=== PATIENT | female | born 1955 | race Caucasian/White ===

== ENCOUNTER → 2020-08-16 13:50 | Outpatient (BNVA) | payer OTHER, SELFPAY | PROVIDERS: PCP Nurse Practitioner Family; Visit Provider Internal Medicine | DX: Z76.89 Persons encountering health services in other specified circumstances (principal) ==

== ENCOUNTER 2020-09-29 10:23 | Outpatient (REF) | payer OTHER, SELFPAY ==
--- NOTE | 2020-09-29 10:35 | XR_ITS ---
EXAMINATION: RIGHT KNEE AND AP BILATERAL KNEES STANDING. CLINICAL INFORMATION: Pain right knee. COMPARISON: None TECHNIQUE: AP bilateral knees standing and right knee 2 views. FINDINGS: AP bilateral knee: There is mild reduction in medial and lateral compartment joint space both knees with no bony erosive changes. No loose body seen. Moderate varicose veins are seen along the medial calf right leg. Right knee: There is loss of tricompartment joint space. No abnormal joint effusion seen. There are no loose bodies. There is anterior superior small patellar enthesophyte. The soft tissues are normal.. XR/XR knee standing BI IMPRESSION: Degenerative arthritic changes right knee without loose bodies or bony erosive changes.
--- NOTE | 2020-09-29 10:35 | XR_ITS ---
EXAMINATION: RIGHT KNEE AND AP BILATERAL KNEES STANDING. CLINICAL INFORMATION: Pain right knee. COMPARISON: None TECHNIQUE: AP bilateral knees standing and right knee 2 views. FINDINGS: AP bilateral knee: There is mild reduction in medial and lateral compartment joint space both knees with no bony erosive changes. No loose body seen. Moderate varicose veins are seen along the medial calf right leg. Right knee: There is loss of tricompartment joint space. No abnormal joint effusion seen. There are no loose bodies. There is anterior superior small patellar enthesophyte. The soft tissues are normal.. XR/XR knee RT 2V IMPRESSION: Degenerative arthritic changes right knee without loose bodies or bony erosive changes.
== END 2020-09-29 10:24 | disposition home or self-care (01) ==
LOC: HO.HOSX 10:23
PROVIDERS: Visit Provider Orthopaedic Surgery
DX: M25.561 Pain in right knee (principal); M25.562 Pain in left knee; M71.21 Synovial cyst of popliteal space [Baker], right knee
CPT/HCPCS: 73560; 73565

== ENCOUNTER → 2020-12-25 13:09 | Outpatient (BNVA) | payer OTHER, SELFPAY | PROVIDERS: Visit Provider Nurse Practitioner Family | DX: I47.1 Supraventricular tachycardia (principal); R00.2 Palpitations; I10 Essential (primary) hypertension; Z79.899 Other long term (current) drug therapy | CPT/HCPCS: 93005 ==

== ENCOUNTER → 2021-07-23 11:03 | Outpatient (REF) | payer OTHER, SELFPAY ==
--- NOTE | 2021-07-23 11:07 | HM_ITS ---
Conclusion: 1. Patient was monitored for 4 days and 2 hours 2. Baseline rhythm is normal sinus rhythm with average heart of 74 beats per minute 3. No significant pauses or bradycardia noted 4. Frequent short burst of supraventricular ectopics consistent with SVT, longest of 9 beats 5. Total of 13,478 PACs accounting for 4.19% of total beats, frequent PACs 6. No patient reported symptoms MTDD
== END ==
LOC: HO.CARD 11:03
PROVIDERS: PCP Nurse Practitioner Family; Visit Provider Internal Medicine
DX: R00.2 Palpitations (principal)
CPT/HCPCS: 93242

== ENCOUNTER → 2021-08-04 08:27 | Outpatient (REF) | payer OTHER, SELFPAY ==
--- NOTE | 2021-08-04 08:37 | CA_ITS ---
Transthoracic Echocardiogram Patient (Last, First, Middle): Lilli Philip Z Gender: Female Date of : 1955 Age: 65 Procedure Date: 08/04/2021 Procedure Type: Transthoracic Echocardiogram Location: OP Height: 152.4 cm Weight: 84.37 kg BSA: 1.81 m2 Heart Rate: bpm BP: 128 / 68 mmHg Enrollment Management Director: Referring MD: Calvin Cason MD Gang Investigator: Maxi Lee MD Symptoms: I47.1 - Supraventricular tachycardia Study Quality: Good ECG Rhythm: Sinus Conclusions: - 1. Normal LV systolic function with grade 1 diastolic dysfunction 2. Mildly dilated left atrium 3. Normal cardiac valvular Doppler 4. Normal RV systolic pressure 5. No pericardial effusion Findings Left Ventricle Normal left ventricular size, thickness, and systolic function. The visually estimated ejection fraction is between 55-60%. Spectral Doppler is indicative of an impaired relaxation filling pattern. E/E prime ratio is <8, consistent with normal filling pressures. Evidence suggests grade I (mild) diastolic dysfunction. Right Ventricle Normal right ventricular cavity size and systolic function. Atria The left atrium is mildly dilated. There is no evidence of interatrial shunt. The right atrium is normal in size. Aortic Valve Normal aortic valve structure and function. There is no aortic valve stenosis. There is no aortic valve regurgitation. Mitral Valve Normal mitral valve structure and function. There is trace mitral valve regurgitation. There is no mitral valve stenosis. Pulmonic Valve The pulmonic valve is likely normal. There is trace to mild pulmonic valve regurgitation. Tricuspid Valve Normal tricuspid valve structure. There is trace tricuspid valve regurgitation. The right ventricular systolic pressure is normal. The right ventricular systolic pressure is 23 mmHg. Normal right atrial pressure. There is no evidence of pulmonary hypertension. Great Vessels All visible segments of the aorta are normal in size. The pulmonary artery was not well visualized. Venous The inferior vena cava is normal in size and collapses greater than 50% with inspiration. Pericardium/Pleural There is no evidence of pericardial effusion. Prior Study Comparison No significant change compared to prior study dated: 05/05/2020. Measurements 2D Linear Measurements IVSd: 1.21 0.6-0.9/0.6-1.0 cm LVIDd: 3.84 3.9-5.3/4.2-5.9 cm LVIDd Index: 2.12 2.4-3.2/2.2-3.1 cm/m2 LVIDs: 2.49 2.0-3.6 cm LVPWd: 1.25 0.7-1.1 cm Ao Root: 3.60 2.1-3.5 cm LA Diam: 4.40 2.7-3.8/3.0-4.0 cm LAIDs Index: 2.43 1.5-2.3 cm/m2 LV Mass: 201.16 67-162/88-224 g LV Mass Index: 111.14 43-95/49-115 g/m2 LVOT Diam: 2.40 3.0+(-)1.3 cm 2D Systolic Function EF 4C: 59.20 >55% EF 2C: 55.90 >55% Mitral Valve MV Pk E: 0.50 MV PK A: 0.76 MV Decel Time: 225.00 E/A: 0.70 E'Lateral: 8.81 E'Medial: 5.22 E/E' Med: 9.50 E/E' Lat: 5.60 PHT: 66.00 MVA PHT: 3.33 Decel [place]: 2.21 Aortic Valve AoV Pk [place]: 1.31 AoV Mn [place]: 0.86 AoV VTI: 0.29 AoV Pk Grad: 7.00 Aov Mn Grad: 4.00 JAYNE Cont.VTI: 2.93 LVOT LVOT Pk [place]: 0.80 LVOT Mn [place]: 0.56 LVOT VTI: 0.19 LVOT Pk Grad: 3.00 LVOT Mn Grad: 1.00 LVOT Diam: 2.40 LVOT Area: 4.52 Diastolic Function MV Pk E: 0.50 MV Pk A: 0.76 E/A: 0.70 E'Medial: 5.22 E/E' Med: 9.50 E' Laterial: 8.81 E/E' Lat: 5.60 Tricuspid Valve TR Pk [place]: 2.26 TR Pk Grad: 20.00 RA Press: 3.00 RVSP: 23.00 Great Vessels Aorta Ao Root-2D: 3.60 2.0-3.7 cm Ao Asc: 3.60 2.1-3.4 cm Pulmonary Valve PV Pk [place]: 0.79 Peak PV Grad: 2.00 Updated in Other Vendor System with Status of Final Maxi Lee MD electronically signed on 08/05/2021 2:42:04 PM with status of Final
== END ==
LOC: HO.CARD 08:27
PROVIDERS: PCP Nurse Practitioner Family; Visit Provider Internal Medicine
DX: I47.1 Supraventricular tachycardia (principal)
CPT/HCPCS: 93306

== ENCOUNTER → 2021-08-15 10:31 | Outpatient (BNVA) | payer OTHER, SELFPAY | PROVIDERS: PCP Nurse Practitioner Family; Visit Provider Internal Medicine ==

== ENCOUNTER → 2022-05-07 09:25 | Outpatient (BNVA) | payer OTHER, SELFPAY | PROVIDERS: PCP Nurse Practitioner Family; Visit Provider Nurse Practitioner Family | DX: I49.8 Other specified cardiac arrhythmias (principal) | CPT/HCPCS: 93005 ==

== ENCOUNTER → 2022-07-09 11:03 | Outpatient (REF) | payer OTHER, SELFPAY ==
--- NOTE | 2022-07-09 11:09 | HM_ITS ---
Conclusion: 1. Patient was monitored for total period of 3 days and 2 hours 2. Baseline was normal sinus rhythm with average heart of 74 beats per minute 3. No significant pauses or bradycardia noted 4. Total of 324 PVCs accounting for 0.1% of total beats account for occasional PVCs 5. Total of 16,661 PACs accounting for 5.21% of total beats accounting for frequent PACs 6. There were frequent episodes of SVT with the fastest SVT at 207 beats per minute with no sustained episodes lasting greater than few seconds 7. No patient reported events MTDD
== END ==
LOC: HO.CARD 11:03
PROVIDERS: PCP Nurse Practitioner Family; Visit Provider Internal Medicine
DX: R00.2 Palpitations (principal); I49.8 Other specified cardiac arrhythmias
CPT/HCPCS: 93242

== ENCOUNTER → 2023-07-08 08:38 | Outpatient (REF) | payer MEDICARE, SELFPAY ==
--- NOTE | 2023-07-08 08:48 | HM_ITS ---
Conclusion: 1. Patient was monitored for total period of 3 days 2. Baseline was normal sinus rhythm with average heart of 79 beats per minute 3. No significant pauses noted 4. Frequent PACs noted with total burden of 8.2% with frequent supraventricular runs, fastest 181 beats per minute and the longest 45 beats 5. No patient reported events MTDD
== END ==
LOC: HO.CARD 08:38
PROVIDERS: PCP Registered Nurse; Visit Provider Internal Medicine
DX: I49.8 Other specified cardiac arrhythmias (principal); R00.2 Palpitations
CPT/HCPCS: 93242

== ENCOUNTER → 2023-07-08 08:48 | Outpatient (BNV) | payer MEDICARE, SELFPAY | PROVIDERS: PCP Registered Nurse; Visit Provider Internal Medicine Cardiovascular Disease | DX: I49.1 Atrial premature depolarization (principal) | CPT/HCPCS: 93244 ==

== ENCOUNTER 2023-07-29 09:35 | Outpatient (AMB) | payer MEDICARE, SELFPAY ==
--- NOTE | 2023-07-29 09:37 | MHC.OFFVIS ---
Intake Vital Signs 07/29/23 09:38 Height 5 ft 1 in Weight 174 lb 2.643 oz BMI 32.9 BP 114/78 Blood Pressure Location Lt brachial Position Sitting Pulse 63 Intake Visit Reasons: 1 year follow-up with ekg Intake Note: 1 year follow up w/ EKG Orange Grower Required: No Accompanied by: Self / Same As Patient Allergies Iodinated Contrast Media [IV Dye, Iodine Containing] Allergy (Unknown, Verified 07/29/23 09:44) RASH Medication List - Last Reconciled 07/29/23 by Calvin Cason MD metoprolol tartrate 12.5 mg (1/2 x 25 mg) PO BID HPI HPI Comments History of Present Illness Details Lilli returns for follow-up regarding palpitations. Overall, generally doing well. Rare palpitations. No other complaints like angina or shortness of breath. In the past, was taking methimazole for hyperthyroidism but it seems that she underwent surgery for the same. No longer on her list. [facility] Medical History (Updated 08/15/21 @ 11:55 by Calvin Cason MD) Hyperthyroidism Atrial arrhythmia Essential hypertension SVT (supraventricular tachycardia) Palpitation Surgical History History of lithotripsy Family History Father Cardiovascular disease Mother Cardiovascular disease Diabetes Thyroid disease Social History Alcohol intake: current Alcohol intake frequency: a few times a week Alcohol type: wine Current occupational status: retired Current occupation: Right Handed Review of Systems Const Denies weakness ENT Denies dizziness Card Denies chest pain, Denies chest pain with activity, Denies syncope, Denies rapid heart rate, Denies pedal edema, Denies edema, Denies leg edema, Denies lightheadedness, Denies palpitations, Denies dyspnea, Denies dyspnea on exertion and Denies orthopnea Resp Denies cough, Denies dyspnea and Denies dyspnea on exertion GI Denies hematochezia and Denies change in stool character Musc Denies abnormal gait, Denies muscle cramps, Denies muscle weakness, Denies numbness, Denies radiating pain into limb and Denies tingling Neuro Denies abnormal gait, Denies dizziness, Denies syncope, Denies numbness, Denies tingling and Denies weakness Endo Denies palpitations Physical Exam Vital Signs: Last Vital Signs Pulse 63 07/29/23 09:38 BP 114/78 07/29/23 09:38 BMI result Body Mass Index 32.9 Const General: comfortable and no acute distress Orientation/consciousness: patient oriented x3 HEENT Other: Unremarkable Head: Yes normal to inspection Neck Neck: Yes normal visual inspection Chest Chest palpation & inspection: normal inspection of the chest Resp Auscultation: clear to auscultation bilaterally Cardio Palpation: normal PMI Heart sounds: S1 normal heart sound present, S2 normal heart sound present, no gallops, no murmurs and no rubs GI Palpation (GI): Soft to palpation Back/Spine/Pelvis Other: unremarkable Skin General skin exam: no rashes or lesions noted Neuro General: patient oriented x3 Extrem General: Yes normal to inspection Psych Mental Status: mental status grossly normal Office Procedures EKG Details: EKG with sinus rhythm at 60/Min; premature atrial complexes; no significant ST-T changes and otherwise unremarkable[place] [id number], Complete Assessment & Plan Assessment & Plan (1) Atrial arrhythmia: Code(s): I49.8 - Other specified cardiac arrhythmias (2) SVT (supraventricular tachycardia): Code(s): I47.1 - Supraventricular tachycardia Plan In the most recent Holter, underlying rhythm is sinus at an average rate of 79/Min. Frequent PACs at 8.2%. Brief runs but nothing too prolonged. Echocardiogram with LVEF 55-60%, mild left atrial dilatation but otherwise unremarkable. In the stress test, she was able to exercise for 6 minutes and 45 seconds on the Monroe protocol with some shortness of breath and fatigue but no angina; there were PACs, PVCs and short atrial runs but no EKG evidence of ischemia. She may continue low-dose beta-blockers without changes. On the days she feels more palpitations, can take some extra metoprolol. Otherwise, weight loss will help and she has lost about 10-15 lb or so. May continue to do so. We have discussed about sleep study in the past as well as today but she would rather not pursue it. Coding Level of Care Code Est Pt Level 3 (14769) Diagnoses Atrial arrhythmia I49.8 SVT (supraventricular tachycardia) I47.1 CPT Codes EKG - CPT: 15949-[id number], Complete ([id number])
[2023-07-29 09:38] VITALS: BP 114/78; PULSE 63; BMI 32.9
== END 2023-07-29 10:01 | disposition home or self-care (01) ==
PROVIDERS: PCP Registered Nurse; Visit Provider Internal Medicine
DX: I49.8 Other specified cardiac arrhythmias (principal); I47.1 Supraventricular tachycardia
CPT/HCPCS: 93010; 99213

== ENCOUNTER → 2023-07-29 09:35 | Outpatient (BNVA) | payer MEDICARE, SELFPAY | PROVIDERS: PCP Registered Nurse; Visit Provider Internal Medicine | DX: I49.8 Other specified cardiac arrhythmias (principal); I47.10 Supraventricular tachycardia, unspecified; Z79.899 Other long term (current) drug therapy | CPT/HCPCS: 93005; 99212 ==

== ENCOUNTER 2024-07-27 09:15 | Outpatient (AMB) | payer MEDICARE, SELFPAY ==
[2024-07-27 09:16] VITALS: BP 118/74; PULSE 64; BMI 34.5
--- NOTE | 2024-07-27 09:16 | MHC.OFFVIS ---
Vital Signs 07/27/24 09:16 Height 5 ft 1 in Weight 182 lb 8.684 oz BMI 34.5 BP 118/74 Blood Pressure Location Lt brachial Position Sitting Pulse 64 Intake Visit Reasons: 1 yr f/up Steamfitter Required: No Accompanied by: Self / Same As Patient Allergies Iodinated Contrast Media [IV Dye, Iodine Containing] Allergy (Unknown, Verified 07/29/23 09:44) RASH Medication List - Last Reconciled 07/27/24 by Calvin Cason MD hydrochlorothiazide 25 mg PO DAILY PRN metoprolol tartrate 12.5 mg (1/2 x 25 mg) PO BID 90 days HPI Comments Details: Lilli returns for follow-up regarding palpitations. She states that she is doing fine. Palpitations are fairly well controlled. No other complaints like angina or shortness of breath. In the past, was taking methimazole for hyperthyroidism but it seems that she underwent surgery for the same. [facility] Medical History (Updated 08/15/21 @ 11:55 by Calvin Cason MD) Hyperthyroidism Atrial arrhythmia Essential hypertension SVT (supraventricular tachycardia) Palpitation Surgical History History of lithotripsy Family History Father Cardiovascular disease Mother Cardiovascular disease Diabetes Thyroid disease Social History (Updated 07/27/24 @ 09:21 by Deborah Quick CMA) Alcohol intake: current Alcohol intake frequency: a few times a week Alcohol type: wine Patient Tobacco Use Status: Never used Tobacco Current occupational status: retired Current occupation: Right Handed Review of Systems Const Denies chills, Denies fatigue, Denies fever(s), Denies weight gain and Denies weight loss ENT Denies dizziness Card Denies chest pain, Denies leg edema, Denies lightheadedness, Denies palpitations, Denies dyspnea on exertion, Denies orthopnea and Denies other Resp Denies cough and Denies dyspnea on exertion GI Denies hematochezia and Denies change in stool character Musc Denies abnormal gait, Denies muscle weakness, Denies numbness, Denies radiating pain into limb and Denies tingling Neuro Denies abnormal gait, Denies dizziness, Denies numbness and Denies tingling Endo Denies fatigue and Denies palpitations Physical Exam Vital Signs: Last Vital Signs Pulse 64 07/27/24 09:16 BP 118/74 07/27/24 09:16 BMI result Body Mass Index 34.5 Const General: comfortable and no acute distress Orientation/consciousness: patient oriented x3 HEENT Other: Unremarkable Head: Yes normal to inspection Neck Neck: Yes normal visual inspection Chest Chest palpation & inspection: normal inspection of the chest Resp Auscultation: clear to auscultation bilaterally Cardio Palpation: normal PMI Heart sounds: S1 normal heart sound present, S2 normal heart sound present, no gallops, no murmurs and no rubs GI Palpation (GI): Soft to palpation Back/Spine/Pelvis Other: unremarkable Skin General skin exam: no rashes or lesions noted Neuro General: patient oriented x3 Extrem General: Yes normal to inspection Psych Mental Status: mental status grossly normal Office Procedures EKG Details: EKG with underlying sinus rhythm at 64/Min; minimal criteria for LVH vs normal variant; nonspecific ST-T changes; [place] [id number], Complete Assessment & Plan Assessment & Plan (1) Atrial arrhythmia: Code(s): I49.8 - Other specified cardiac arrhythmias Category: Medical (2) SVT (supraventricular tachycardia): Code(s): I47.1 - Supraventricular tachycardia Category: Medical Plan In the last Holter, underlying rhythm is sinus at an average rate of 79/Min. Frequent PACs at 8.2%. Brief runs but nothing too prolonged. Echocardiogram with LVEF 55-60%, mild left atrial dilatation but otherwise unremarkable. In the stress test, she was able to exercise for 6 minutes and 45 seconds on the Monroe protocol with some shortness of breath and fatigue but no angina; there were PACs, PVCs and short atrial runs, but no EKG evidence of ischemia. Remains on low-dose beta-blockers. No changes. Okay to take additional metoprolol if palpitations more profound. Otherwise, weight loss if able. She is not interested in sleep study. Patient states she takes hydrochlorothiazide as needed for swelling extra and requesting refill- sent per her request. Advised her to follow-up labs with her own PCP. Orders: Orders ECG 3 day holter monitor 1 Year I49.8 - Other specified cardiac arrhythmias Medications: New hydrochlorothiazide 25 mg PO DAILY PRN 90 tabs 3RF swelling Coding Level of Care Code Est Pt Level 3 (46474) Diagnoses Atrial arrhythmia I49.8 SVT (supraventricular tachycardia) I47.1 CPT Codes EKG - CPT: 36843-[id number], Complete ([id number])
== END 2024-07-27 09:42 | disposition home or self-care (01) ==
PROVIDERS: PCP Registered Nurse; Visit Provider Internal Medicine
DX: I49.8 Other specified cardiac arrhythmias (principal); I47.10 Supraventricular tachycardia, unspecified
CPT/HCPCS: 93010; 99213

== ENCOUNTER → 2024-07-27 09:15 | Outpatient (BNVA) | payer MEDICARE, SELFPAY | PROVIDERS: PCP Registered Nurse; Visit Provider Internal Medicine | DX: I49.8 Other specified cardiac arrhythmias (principal); I47.10 Supraventricular tachycardia, unspecified | CPT/HCPCS: 93005; 99212 ==

== ENCOUNTER 2025-02-01 12:46 | Emergency (ER) | payer MEDICARE, SELFPAY ==
--- NOTE | ~2025-02-01 | CT_ITS ---
CLINICAL HISTORY: Left flank left lower quadrant pain stone? Exam: CT Abdomen and Pelvis Without IV Contrast Comparison: None Findings: The liver density is homogeneous No biliary abnormalities The spleen is normal in size No pancreatic ductal dilatation No hydronephrosis. A 2 mm and a 5 mm nonobstructing caliceal calculi are located in the upper and lower pole of the left kidney. Two left renal cortical simple cysts are present in the upper pole cortex. Normal bowel caliber The appendix is normal. No free fluid/free air The abdominal aorta caliber is normal Bladder outline is smooth. The uterus has a globular configuration suspicious for fibroid involving the uterine fundus. No adnexal masses No suspicious skeletal lesions Impression: There are 2 nonobstructing calculi in the left kidney collecting system. No hydronephrosis. No bladder calculus. Lobular contour of uterine fundus may represent a 3 cm fibroid. Consider nonurgent ultrasound This document has been electronically signed by: Acosta Meneses MD on 02/01/2025 18:40:34
[2025-02-01 13:51] VITALS: BP 138/76; PULSE 74; RESP 16; TEMP 36.3; O2SAT 94; BMI 36.7
--- NOTE | 2025-02-01 13:57 | ED_ITS ---
HPI - General Adult General Chief complaint: Abdominal Pain Stated complaint: Kidney stone? Time Seen by Provider: 02/01/25 16:56 Source: patient Mode of arrival: ambulatory Limitations: no limitations History of Present Illness ED Provider: HPI narrative: Patient's history of kidney stone about 8 years ago comes here for 10 days of left lower quadrant pain and left flank pain associated with nausea no vomiting no dysuria no hematuria patient's feel that urine is malodorous Related Data Previous Rx's ?Medication ?Instructions ?Recorded hydrochlorothiazide 25 mg tablet 25 mg PO DAILY PRN swelling #90 07/27/24 tabs metoprolol tartrate 25 mg tablet 12.5 mg (1/2 x 25 mg) PO BID #90 01/17/25 tabs Allergies Allergy/AdvReac Type Severity Reaction Status Date / Time Iodinated Contrast Media Allergy Unknown RASH Verified 02/01/25 13:51 [IV Dye, Iodine Containing] Review of Systems 2 Review of Systems: Yes all other systems are reviewed and are negative [facility] Past Medical History Medical History Hyperthyroidism Atrial arrhythmia Essential hypertension SVT (supraventricular tachycardia) Palpitation Surgical History History of lithotripsy Family History Family History Father Cardiovascular disease Mother Cardiovascular disease Diabetes Thyroid disease Social History Social History Alcohol intake: current Alcohol intake frequency: a few times a month Alcohol type: wine Patient Tobacco Use Status: Never used Tobacco Smoked in Last 30 Days: No Use of substances other than those prescribed or required for medical reasons: No Advance Directives: No Advance Directives Information Provided: No Do you have a plan to hurt others: No Plan Current occupational status: retired Current occupation: Right Handed Physical Exam ED Vital Signs: Vital Signs - 24 hr 02/01/25 13:51 02/01/25 19:11 Temperature 97.3 F 98.1 F Pulse Rate 74 66 Respiratory Rate 16 16 Blood Pressure 138/76 134/86 Pulse Oximetry 94 96 Oxygen Delivery Method Room Air Room Air BMI result Body Mass Index 36.7 Appearance: Alert. Oriented X3. No acute distress. Eyes: No pallor or icterus ENT: Pharynx normal. Oral Mucosa moist Neck: Normal inspection. Neck supple. CVS: Normal heart rate and rhythm. Pulses normal. Respiratory: No respiratory distress. Equal air entry bilateral, no wheezing/rales/rhonchi Abdomen: Soft and deep tenderness left lower quadrant no rebound tenderness or guarding Bowel sounds are present, no mass palpable, no CVA tenderness Skin: Skin warm and dry. Normal skin color. Normal skin turgor. Extremities: No lower extremity edema. No calf tenderness Neuro: Oriented X 3. Course Course Course Narrative: RME: 69-year-old female with history of kidney stones presents to ED for malodorous urine pelvic and left flank pain for the past 2 weeks. Patient has concerns for kidney stones. Labs UA ordered. Medical Decision Making Medical Decision Making [facility] Narrative: Patient's left flank pain no history of kidney stone CT scan showed no acute finding likely either patient has passed the stone musculoskeletal pain urine is also negative Differential Diagnosis Differential Diagnoses: The differential diagnosis associated with the presentation includes Kidney stone/ureteric colic/UTI/musculoskeletal pain Lab Data [facility] Lab Attestation statement: I reviewed the patient's lab results. 02/01/25 14:15 02/01/25 14:15 Labs: Lab Results 02/01/25 Range/Units 14:15 WBC 4.6 L (4.8-10.8) X10*3/uL RBC 4.62 (4.20-5.50) X10*6/uL Hgb 14.2 (12.0-16.0) g/dl Hct 41.9 (37.0-47.0) % MCV 90.7 (80.0-98.0) fL MCH 30.7 (27.0-33.0) pg MCHC 33.9 (31.0-35.0) g/dl RDW 13.5 (11.0-16.0) % Plt Count 233 (160-400) X10*3/uL MPV 9.6 (9.4-12.3) fL Immature Gran % (Auto) 0.2 (0.0-0.4) % Neut % (Auto) 46.5 (45-73) % Lymph % (Auto) 41.1 H (20-40) % [place] % (Auto) 8.3 (2-11) % Eos % (Auto) 2.6 (0-4) % Baso % (Auto) 1.3 (0-2) % Lymph # (Auto) 1.9 (1.2-4.9) X10*3/uL [place] # (Auto) 0.4 (0.1-1.2) X10*3/uL Eos # (Auto) 0.1 (0.0-0.4) X10*3/uL Baso # (Auto) 0.1 (0.0-0.2) X10*3/uL Abs Immat Gran (auto) 0.01 (0.00-0.03) X10*3/uL Absolute Neuts (auto) 2.1 (2.0-8.3) x10*3/uL Absolute Nucleated RBC 0.000 (0.0-0.012) X10*3/uL Nucleated RBC % (auto) 0.0 (0.0-0.2) /100WBC Sodium 140 (135-145) mmol/L Potassium 4.6 (3.3-5.1) mmol/L Chloride 107 (96-108) mmol/L Carbon Dioxide 28 (22-29) mmol/L Anion Gap 10 L (12-20) BUN 11 (9-16) mg/dL Creatinine 0.80 (0.5-1.4) mg/dL Estim Creat Clear Calc 66.1 Estimated GFR > 60 Random Glucose 115 (60-115) mg/dL Calcium 9.4 (8.4-10.2) mg/dL Total Bilirubin 0.4 (0.0-1.0) mg/dL AST 27 (5-31) U/L ALT 18 (0-31) U/L Alkaline Phosphatase 84 (39-117) U/L Total Protein 7.2 (6.5-8.0) g/dL Albumin 3.9 (3.5-5.0) g/dL Urine Color Yellow Urine Appearance Clear Urine pH 7.0 (5.0-9.0) Ur Specific [place] 1.010 (1.005-1.025) Urine Protein Negative (Neg-Trace) mg/dL Urine Glucose (UA) Negative (Negative) mg/dL Urine Ketones Negative (Negative) mg/dL Urine Blood Negative (Negative) Urine Nitrite Negative (Negative) Ur Leukocyte Esterase Negative (Negative) Independent Interpretation I performed an independent interpretation of an: CT Scan Radiology Impression Discussion of test interpretation with radiology: I have reviewed the radiologist's reading. Radiologist Impression: No ureteric stone Discharge Plan Discharge Clinical Impression: Renal colic on left side Patient Disposition: Home, Self-Care Instructions: Renal Colic (ED) Additional Instructions: No evidence of stone in the ureter at this time either likely you have passed the stone or you have musculoskeletal pain Drink plenty of fluids Take Tylenol/Motrin for pain Prescriptions: No Action metoprolol tartrate 25 mg tablet 12.5 mg PO BID Qty: 90 3RF hydrochlorothiazide 25 mg tablet 25 mg PO DAILY PRN (Reason: swelling ) Qty: 90 3RF Interventions: ED Discharge Assessment Last Done: 02/01/25 19:11 Discharge Date/Time: 02/01/25 19:14 Print Language: Citizen [place]
[2025-02-01 14:20] LABS: MANUAL DIFF FLAG NO
[2025-02-01 14:22] LABS: Appearance Urine Clear; Basophils Absolute Auto 0.1 X10*3/uL (0.0-0.2); Basophils Percent Auto 1.3 % (0-2); Color Urine Yellow; Eosinophils Absolute Auto 0.1 X10*3/uL (0.0-0.4); Eosinophils Percent Auto 2.6 % (0-4); Glucose Urine UA Negative (Negative); Hematocrit 41.9 % (37.0-47.0); Hemoglobin 14.2 g/dl (12.0-16.0); Imm Gran Abs Auto 0.01 X10*3/uL (0.00-0.03); Imm Gran Pct Auto 0.2 % (0.0-0.4); Leukocyte Esterase Urine Negative (Negative); Lymphocytes Absolute Auto 1.9 X10*3/uL (1.2-4.9); Lymphocytes Percent Auto 41.1 % (20-40); Mean Corpuscular HGB Conc 33.9 g/dl (31.0-35.0); Mean Corpuscular Hemoglobin 30.7 pg (27.0-33.0); Mean Corpuscular Volume 90.7 fL (80.0-98.0); Mean Platelet Volume 9.6 fL (9.4-12.3); Monocytes Absolute Auto 0.4 X10*3/uL (0.1-1.2); Monocytes Percent Auto 8.3 % (2-11); Neutrophils Absolute Auto 2.1 x10*3/uL (2.0-8.3); Neutrophils Percent Auto 46.5 % (45-73); Nitrite Urine Negative (Negative); Platelet Count 233 X10*3/uL (160-400); Red Blood Count 4.62 X10*6/uL (4.20-5.50); Red Cell Distribution Width 13.5 % (11.0-16.0); Urine Blood Negative (Negative); Urine Ketones Negative (Negative); Urine Protein Negative (Neg-Trace); White Blood Count 4.6 X10*3/uL (4.8-10.8)
[2025-02-01 14:55] LABS: Alanine Aminotransferase 18 U/L (0-31); Albumin Level 3.9 g/dL (3.5-5.0); Anion Gap 10 (12-20); Aspartate Amino Transferase 27 U/L (5-31); Bilirubin Total 0.4 mg/dL (0.0-1.0); Blood Urea Nitrogen 11 mg/dL (9-16); Calcium 9.4 mg/dL (8.4-10.2); Carbon Dioxide 28 mmol/L (22-29); Chloride 107 mmol/L (96-108); Creatinine Clr Calc Pharmacy 66.1; Estimated Glomerular Filt Rate > 60; Glucose Random 115 mg/dL (60-115); Potassium 4.6 mmol/L (3.3-5.1); Sodium 140 mmol/L (135-145); Total Protein 7.2 g/dL (6.5-8.0)
[2025-02-01 17:00] LABS: Alkaline Phosphatase 84 U/L (39-117)
--- OUTSIDE RECORDS SUMMARY | 2025-02-01 19:07 | XMS_ITS | Data Portability ---
Author Organization [facility], [facility] Address [address] [place] [address] Care Team Providers Care Welding Pantograph Machine Operator Name Role Phone MITCHELL MONTANO Core Paster KYLE RUIZ Plate Glass Grinder RSOARIO BIRCH JR Fire Medic MIMI VELAZQUEZ Alpaca Farmer ISAK PACHECO Primary Care Provider MY GRESHAM Phosphatic Fertilizer Supervisor [phone] Assessment Encounter Date Assessment Date Assessment LastModified by Organization Details LastModified Time 10/05/2024 10/05/2024 Assessment : Gait mechanics demonstrates improved knee extension ROM during terminal heel strike. Manual therapy was trialled today with goal of improving patient understanding about terminal knee extension coming both from knee capsule and quad contraction. Pt left without complaint, Pt should be monitored for fatigue and progressed as indicated. Please see procedure documentation for more details on today's session. The patient continues to require and will benefit from skilled intervention by a physical therapist to address impairments in order to achieve their identified goals. Plan : Progress HEP as tolerated. Goal Progress Comment Pt will demonstrate improved rating on Patient-Specific Functional Scale activities by 2 points (MCID). In progress Pt will be independent in comprehensive HEP. In progresss Pt will improve ability to get out of car with no more than 2/10 pain In progress Pt will improve ability to walk with LRAD for at least 30 minutes In progress Additional goals to be added as appropriate. Plan: Patient will benefit from 10 weeks of skilled physical therapy at a frequency of 1 session(s) per week. A plan of care was created or updated today to help the patient reach their identified goals. The treatment plans will be reviewed and signed by the referring physician. The interventions planned are guided by evidence-based practices to be safe, effective and meet the medical needs of the patient. The duration and frequency of treatment are appropriate based on standard practices for the diagnosis or treatment. The following procedures and interventions, with corresponding CPT codes, will be performed for the patient: Physical Therapy Examination (98976, 94307, or 65810); Physical Therapy Re-examination (87954); Physical Performance Testing (14532); Therapeutic Exercise (99323); Neuromuscular Re-education (21892); Therapeutic Activities (95879); Manual Therapy (75255); Gait Training (47528); Self Care and Home Management Training (74180); Canalith repositioning procedures (51565) Next visit: review home program and progress as appropriate Not available 10/05/2024 12:09:52 10/25/2024 10/25/2024 Assessment : It is clear IT band and Adductors of right knee complex are over utilized during gait tasks and have become very sensitive as well as shortened. She was educated in this matter and was given stretches to complete for improved symptoms of medial/lateral knee. Please see procedure documentation for more details on today's session. The patient continues to require and will benefit from skilled intervention by a physical therapist to address impairments in order to achieve their identified goals. Plan : Progress HEP as tolerated. Goal Progress Comment Pt will demonstrate improved rating on Patient-Specific Functional Scale activities by 2 points (MCID). In progress Pt will be independent in comprehensive HEP. In progresss Pt will improve ability to get out of car with no more than 2/10 pain In progress Pt will improve ability to walk with LRAD for at least 30 minutes In progress Additional goals to be added as appropriate. Plan: Patient will benefit from 10 weeks of skilled physical therapy at a frequency of 1 session(s) per week. A plan of care was created or updated today to help the patient reach their identified goals. The treatment plans will be reviewed and signed by the referring physician. The interventions planned are guided by evidence-based practices to be safe, effective and meet the medical needs of the patient. The duration and frequency of treatment are appropriate based on standard practices for the diagnosis or treatment. The following procedures and interventions, with corresponding CPT codes, will be performed for the patient: Physical Therapy Examination (77790, 60029, or 56709); Physical Therapy Re-examination (00819); Physical Performance Testing (40115); Therapeutic Exercise (17997); Neuromuscular Re-education (34059); Therapeutic Activities (83773); Manual Therapy (07309); Gait Training (72395); Self Care and Home Management Training (90144); Canalith repositioning procedures (18578) Next visit: review home program and progress as appropriate Not available 10/25/2024 12:21:51 11/22/2024 11/22/2024 Assessment : Lilli's reports of diffuse anterior tibialis /lateral cardenas pain may be referred from knee OA; however, diffuse symptoms may also be secondary to sciatic nerve irritation as demonstrated by improved symptoms after open book stretching. She was educated she may benefit from seeing sports medicine due to prolonged nature of her pain. Please see procedure documentation for more details on today's session. The patient continues to require and will benefit from skilled intervention by a physical therapist to address impairments in order to achieve their identified goals. Plan : Progress HEP as tolerated. Goal Progress Comment Pt will demonstrate improved rating on Patient-Specific Functional Scale activities by 2 points (MCID). In progress Pt will be independent in comprehensive HEP. In progresss Pt will improve ability to get out of car with no more than 2/10 pain In progress Pt will improve ability to walk with LRAD for at least 30 minutes In progress Additional goals to be added as appropriate. Not available 11/22/2024 13:04:18 12/02/2024 12/02/2024 Assessment : Lilli's knee flexion has improved with discussion on arthrokinematics today, specifically in relation to gliding the tibia anteriorly during heel slide which allowed for 20 degrees improved knee flexion. Her continued pain levels make rehab potential limited and she was educated to FU after sports medicine consult to discuss efficacy of other treatment. Please see procedure documentation for more details on today's session. The patient continues to require and will benefit from skilled intervention by a physical therapist to address impairments in order to achieve their identified goals. Plan : FU as needed. Goal Progress Comment Pt will demonstrate improved rating on Patient-Specific Functional Scale activities by 2 points (MCID). In progress Pt will be independent in comprehensive HEP. In progresss Pt will improve ability to get out of car with no more than 2/10 pain In progress Pt will improve ability to walk with LRAD for at least 30 minutes In progress Additional goals to be added as appropriate. Not available 12/02/2024 09:34:15 12/28/2024 12/28/2024 weightbearing X-rays of the right knee were independently interpreted demonstrating mild tricompartmental OA Not available 12/28/2024 14:08:40 Plan of Treatment Reminders Order Date Submit Date Provider Last Modified By Organization Details Last Modified Time Details Appointments Mammog aleida, Screen ing 2024 11:30A M [facility] Mammography Not available Not available Not available LAB Follow -Up 2024 08:00A M [facility] Lab Not available Not available Not available Rj ss Visit 30 2024 11:15A M ENEEDLIA Diamond Not available Not available Not available Lab None record ed. Referral None record ed. Procedures None record ed. Surgeries None record ed. Imaging None record ed. Medication Orders None record ed. Patient TargetsNo targets recorded. Patient Instructions Encounter Date Encounter Id Patient Instructions Last Modified By Organization Details Last Modified Time 12/28/2024 [id number] Consider your options Let me know if you would like to try the gel injections Continue with physical therapy Follow-up as needed Not available 12/28/2024 14:17:03 All of the patients questions were answered and they understand the plan of care. Thank you for allowing me to participate in the care of your patient. ? ? ?Please feel free to contact me with any questions regarding their care. Not available 12/28/2024 14:47:26 Reason for Referral None Reported. Results Created Date Observation Date Name Description Value Unit Range Abnormal Flag Note LastModifiedBy Organization Detail LastModifiedTime 09/22/20 24 09/22/2024 HGB A1C hemoglobin A1C 5.3 % 4.8-6. 0 Goal: <7% in Patie nts with Diabe rosanne An A1c betwe en 5.7-6 .4% is ident ified as pre-d iabet es and sugge sts risk for progr essio n to diabe rosanne Two a1c value s of 6.5% or highe r is consi stent with a diagn osis of diabe rosanne but may need furth er confi rmati on Not Available [address], [address], 09/22/2024 14:40:19 09/22/20 24 09/22/2024 HGB A1C estimated average glucose 105.4 mg/dL Not Available [address], [address], 09/22/2024 14:40:19 09/22/20 24 09/23/2024 BASIC METAB OLIC PANEL glucose 75 mg/dL 70-100 Not Available [address], [address], 09/23/2024 11:49:33 09/22/20 24 09/23/2024 BASIC METAB OLIC PANEL BUN 18 mg/dL 7-18 Not Available [address], [address], 09/23/2024 11:49:33 09/22/20 24 09/23/2024 BASIC METAB OLIC PANEL creatinine 0.9 mg/dL 0.8-1. 3 Not Available [address], [address], 09/23/2024 11:49:33 09/22/20 24 09/23/2024 BASIC METAB OLIC PANEL B/C 20.0 ratio Not Available [address], [address], 09/23/2024 11:49:33 09/22/20 24 09/23/2024 BASIC METAB OLIC PANEL GFR >=60ML /MIN mL/mi n normal >=60m L/min - Angela l or midly reduc ed <60mL /min- Decre ased kidne y funct ion <15mL /min - Kidne y failu re [facility] calcu lates estim ated Glome rular Filtr ation Rate (eGFR ) using the Chron ic Kidne y Disea se Epide miolo gy Colla borat ion (CKD- EPI) Equat ion (Rojelio greenfield et. al 2020) as recom jasper d by the Matt ayers . eGFR is based on age, serum creat inine , and sex. CKD-E PI does not calcu late eGFR by race, does not apply to child anabella (age <18 years ), and shoul d not be used in pregn gladys. Not Available [address], [address], 09/23/2024 11:49:33 09/22/20 24 09/23/2024 BASIC METAB OLIC PANEL sodium 145 mmol/ L 136-14 5 Not Available [address], [address], 09/23/2024 11:49:33 09/22/20 24 09/23/2024 BASIC METAB OLIC PANEL potassium 4.3 mmol/ L 3.5-5. 1 Not Available [address], [address], 09/23/2024 11:49:33 09/22/20 24 09/23/2024 BASIC METAB OLIC PANEL chloride 104 mmol/ L 96-107 Not Available [address], [address], 09/23/2024 11:49:33 09/22/20 24 09/23/2024 BASIC METAB OLIC PANEL anion gap 7.8 5.0-15 .0 Not Available [address], [address], 09/23/2024 11:49:33 09/22/20 24 09/23/2024 BASIC METAB OLIC PANEL CO2 33 mmol/ L 21-32 high Not Available [address], [address], 09/23/2024 11:49:33 09/22/20 24 09/23/2024 BASIC METAB OLIC PANEL calcium 9.4 mg/dL 8.5-10 .3 Not Available [address], [address], 09/23/2024 11:49:33 09/22/20 24 09/23/2024 LIPID PANEL cholesterol 193 mg/dL <200 mg/dl Jacqueline able 200-2 39 mg/dl Borde rline High >240 mg/dl High Not Available [address], [address], 09/23/2024 11:49:34 09/22/20 24 09/23/2024 LIPID PANEL triglyceride s 67 mg/dL <150 mg/dL Angela l 150-1 99 mg/dL Borde rline High 200-4 99 mg/dL High >500 mg/dL Very High Not Available [address], [address], 09/23/2024 11:49:34 09/22/20 24 09/23/2024 LIPID PANEL direct HDL 93 mg/dL <40 mg/dl - Major Risk for CHD >60 mg/dl - Negat carmine Risk for CHD Not Available [address], [address], 09/23/2024 11:49:34 09/22/20 24 09/23/2024 LDL - CALCU LATED LDL - calculated 87 RISK CATEG ORY LDL GOAL _ CHD or CHD Risk Equiv alent s <100 mg/dl (10-y ear risk >20%) 2+ Risk Facto rs <130 mg/dl (10-y ear risk <= 20%) 0-1 Risk Facto r? <160 mg/dl ? Almos t all peopl e with 0-1 risk facto r have a 10 year risk <10%, thus 10 year risk asses ment in peopl e with 0-1 risk facto r is not neces ana. Not Available [address], [address], 09/23/2024 11:49:35 Result Notes None recorded. 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 9103 Active 2021 Viridiana English LPN null, [facility] 2 09:33:38 Atrial prematur e complex 620997942 Active 2022 ENEDELIA Diamond [address] [place] [address], [address] , [facility] 18:01:23 Osteopen ia 578860127 Active 2023 ENEDELIA Diamond [address] [place] [address], [address] , [facility] 4 11:43:47 Hyperten sive disorder 56575427 Active 2023 ENEDELIA Diamond [address] [place] [address], [address] , [facility] 11:45:00 Abnormal findings on diagnost ic imaging of breast 656914641 Completed 10/11/2016 Lynne Thomas NP [address] [place] [address], [address] , [facility] 15:07:23 Essentia l hyperten shelby 47195585 Completed 200208/05/2012 Not Available [facility] 3 03:01:56 Gastroes ophageal reflux disease 805244503 Active 2004 Not Available [facility] 3 03:01:56 Non-toxi c uninodul ar goiter 945022781 Completed 200502/27/2021 Mimi Velazquez MD [address] [place] [address], [address] , [facility] 11:22:23 Nausea and vomiting 12496155 Completed 200408/05/2012 Not Available [facility] 3 03:01:56 Thyroidi tis 81393140 Completed 200508/05/2012 Not Available [facility] 3 03:01:56 Hypoglyc emia 575253020 Completed 200408/05/2012 Not Available [facility] 3 03:01:56 Acute non-supp urative serous otitis media 855646163 Completed 200208/05/2012 Not Available [facility] 3 03:01:56 Benign essentia l hyperten shelby 8408804 Completed 200008/05/2012 Not Available [facility] 3 03:01:56 Enthesop athy of hip region 71715213 Completed 200008/05/2012 Not Available [facility] 3 03:01:56 Left lower quadrant pain 405845769 Completed 200308/05/2012 Not Available [facility] 3 03:01:56 Plantar fasciiti s 790617980 Completed 200108/05/2012 Not Available [facility] 3 03:01:56 Dizzines s 026755044 Completed 200408/05/2012 Not Available [facility] 3 03:01:56 Menstrua tion finding Completed 200308/05/2012 Not Available [facility] 3 03:01:56 Pure hypercho lesterol emia 298267231 Completed 200410/11/2016 Lynne Thomas NP [address] [place] [address], [address] , [facility] 15:07:20 Obesity 981538096 Completed 200208/05/2012 Not Available [facility] 3 03:01:56 Dysfunct ional uterine bleeding Completed 200308/05/2012 Not Available [facility] 3 03:01:56 Breast lump 88012608 Completed 200308/05/2012 Not Available [facility] 3 03:01:56 Abdomina l pain 54001561 Completed 200308/05/2012 Not Available [facility] 3 03:01:56 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 Completed 08/05/2012 Not Available [facility] 3 03:01:56 Localize d adiposit y 976531801 Completed 200208/05/2012 Not Available [facility] 3 03:01:56 Irregula r periods 64180266 Completed 200308/05/2012 Not Available [facility] 3 03:01:56 Acute maxillar y sinusiti s 64594141 Completed 200408/05/2012 Not Available [facility] 3 03:01:56 Acute conjunct ivitis 74989680 Completed 200508/05/2012 Not Available [facility] 3 03:01:56 Abnormal cervical Papanico laou smear with human papillom avirus deoxyrib onucleic acid detected 887011316 Completed 200108/05/2012 Not Available [facility] 3 03:01:56 Generali zed abdomina l pain 162159239 Completed 200308/05/2012 Not Available [facility] 3 03:01:56 Elevated blood-pr essure reading without diagnosi s of hyperten shelby 591705203 Completed 200203/05/2013 Not Available [facility] 3 03:01:56 Goiter 2300731 Completed 200408/05/2012 Not Available [facility] 3 03:01:56 Blephari tis 32734937 Completed 200508/05/2012 Not Available [facility] 3 03:01:56 Pain in limb 64691818 Completed 200508/05/2012 Not Available [facility] 3 03:01:56 Malaise and fatigue 229149830 Completed 200408/05/2012 Not Available [facility] 3 03:01:56 Heartbur n 19812058 Completed 200308/05/2012 Not Available [facility] 3 03:01:56 Problem Notes None recorded. Procedures Surgical History Date Name Laterality Status Provider Name and Address Organization Details Recorded Time 12/02/19 80314: Therapeutic Exercise completed NIC LOVE DPT [address] [place] [address], [address], [facility] 12/02/2024 09:10:15 12/02/19 66513: Neuromuscular Re-Education completed NIC LOVE DPT [address] [place] [address], [address], [facility] 12/02/2024 09:10:16 12/02/19 Treatment and Advice completed NIC LOVE DPT [address] [place] [address], [address], [facility] 12/02/2024 09:29:02 11/22/19 96612: Therapeutic Exercise completed NIC LOVE DPT [address] [place] [address], [address], [facility] 11/22/2024 12:31:59 11/22/19 25 58679: Neuromuscular Re-Education completed NIC LOVE DPT [address] [place] [address], [address], [facility] 11/22/2024 13:00:36 11/22/19 25 Treatment and Advice completed NIC LOVE DPT [address] [place] [address], [address], [facility] 11/22/2024 13:00:27 10/25/19 82747: Therapeutic Exercise completed NIC LOVE [facility] [place], [address], [facility] 10/25/2024 11:40:11 10/25/19 25 64542: Manual Therapy completed NIC LOVE DPT [address] [place], [address], [facility] 10/25/2024 12:22:23 10/25/19 25 Treatment and Advice completed NIC LOVE DPT [address] [place], [address], [facility] 10/25/2024 12:22:17 10/05/20 24 21838: Therapeutic Exercise completed NIC OLVE DPT [address] [place], [address], [facility] 10/05/2024 12:08:01 10/05/20 24 40799: Manual Therapy completed NIC LOVE DPT [address] [place], [address], [facility] 10/05/2024 12:08:23 10/05/20 24 Treatment and Advice completed NIC LOVE DPT [address] [place], [address], [facility] 10/05/2024 12:07:52 09/28/20 24 28194: Therapeutic Exercise completed NIC LOVE DPT [address] [place], [address], [facility] 09/28/2024 13:00:06 09/28/20 24 Treatment and Advice completed NIC LOVE DPT [address] [place], [address], [facility] 09/28/2024 12:59:56 09/28/20 24 Medicare Wellness Visit completed ZAIRA Parks [facility] 09/27/2024 13:52:24 09/28/20 24 Medicare Annual Wellness Visit completed Connie Horta [place] [facility] 09/28/2024 11:33:41 09/14/20 24 Smoking Cessation Counselling completed NIC LOVE DPT [address] [place], [address], [facility] 09/14/2024 11:22:47 09/14/20 24 Physical Activity Counselling completed NIC LOVE DPT [address] [place], [address], [facility] 09/14/2024 11:16:35 09/14/20 24 67540: PT Eval Low Complexity completed IVAN MALLOYT [address] [place], [address], [facility] 09/14/2024 11:16:35 09/14/20 24 Treatment and Advice completed NIC LOVE DPT [address] [place], [address], [facility] 09/14/2024 17:12:41 02/08/20 22 34849: Therapeutic Exercise completed Marycruz Rasmussen, PT [address] [place], [address], [facility] 02/07/2022 12:06:56 02/08/20 22 Treatment and Advice completed Marycruz Rasmussen, PT [address] [place], [address], [facility] 02/07/2022 12:00:20 01/30/20 22 57742: Therapeutic Exercise completed Marycruz Rasmussen, PT [address] [place], [address], [facility] 01/29/2022 10:36:13 01/30/20 22 Treatment and Advice completed Marycruz Rasmussen, PT [address] [place], [address], [facility] 01/29/2022 10:35:29 01/25/20 41944: Therapeutic Exercise completed Marycruz Rasmussen, PT [address] [place], [address], [facility] 01/24/2022 11:08:47 01/25/20 22 Treatment and Advice completed Marycruz Rasmussen, PT [address] [place], [address], [facility] 01/24/2022 11:39:08 01/18/20 22 51672: Therapeutic Exercise completed Marycruz Rasmussen, PT [address] [place], [address], [facility] 01/17/2022 12:29:59 01/18/20 22 Treatment and Advice completed Marycruz Rasmussen, PT [address] [place], [address], [facility] 01/17/2022 11:34:47 01/08/20 22 Physical Activity Counselling completed Marycruz Rasmussen, PT [address] [place], [address], [facility] 01/07/2022 13:21:23 01/08/20 22 04980: PT Eval Low Complexity completed Marycruz Rasmussen, PT [address] [place], [address], [facility] 01/07/2022 13:21:28 01/08/20 22 Treatment and Advice completed Marycruz Rasmussen, PT [address] [place], [address], [facility] 01/07/2022 13:23:50 04/30/20 21 Thyroid Biopsy completed Mimi Velazquez MD [address] [place], [address], [facility] 04/30/2021 08:32:28 08/25/20 20 prevention-cardio vascular risk reduction counseling completed Simin Jay [place] [facility] 08/24/2020 16:35:51 08/25/20 20 prevention-annual alcohol misuse screening completed Simin Jay MA [facility] 08/24/2020 16:35:51 08/13/20 19 POC Urinalysis Testing completed Annika Rushing [facility] 08/13/2019 17:13:31 05/28/20 19 POC Urinalysis Testing completed Shelbi Ashton [facility] 05/28/2019 12:36:34 01/03/20 18 POC Flu Testing completed Norma Barber [facility] 01/02/2018 11:06:08 02/18/20 12 Wound Care completed Gloria Almanzar LPN [facility] 02/18/2012 17:26:30 Imaging Results None recorded. Procedure Notes None recorded. Medical Equipment None Reported. Allergies Allergen ID Allergen Name Allergen Category Reaction Reaction Severity Criticality Documentation Date Start Date Code Code System Note Provider Name and Address Organization Details Recorded Time 916283 Iodinated contrast media (substanc e) medicatio n hives Not available Not available 12/20/2020 09822 2003 SNOMED Mimi Velazquez MD [address] [place] [address], [place], [address] [place] [address] 07:36:55 Medications Name Sig Start Date Stop Date Status Note LastModified by Organization Details LastModified Time amoxicill in 500 mg capsule Take 2 capsules every 12 hours by oral route for 5 days. 08/25 completed Not Available Not Available Not Available Anusol-HC 2.5 % rectal cream with applicato r Insert 1 applicat orful every day by rectal route for 10 days. 2011 active Not Available Not Available Not Avai lable azithromy william 250 mg tablet TAKE 2 TABLETS (500 MG) BY ORAL ROUTE ONCE DAILY FOR 1 DAY THEN 1 TABLET (250 MG) BY ORAL ROUTE ONCE DAILY FOR 4 DAYS 09/06 completed Not Available Not Available Not Available ofloxacin 0.3 % eye drops INSTILL 1 DROP INTO AFFECTED EYE(S) BY OPHTHALM IC ROUTE 4 TIMES PER DAY active finished course 12/28/24 Not Available Not Available Not Available hydrocodo ne 5 mg-acetam inophen 325 mg tablet 05/28 completed Not Available Not Available Not Available phenazopy ridine 200 mg tablet 12/24 completed Not Available Not Available Not Available ondansetr on HCl 4 mg tablet 10/17 completed Not Available Not Available Not Available penicilli n V potassium 500 mg tablet 07/15 completed Not Available Not Available Not Available amoxicill in 500 mg tablet Take 1 tablet 3 times a day by oral route for 7 days. 08/25 completed Not Available Not Available Not Available lidocaine -prilocai ne 2.5 %-2.5 % topical cream active Not Available Not Available Not Available prednisol one acetate 1 % eye drops,regis pension 09/22 completed Not Available Not Available Not Available lorazepam 0.5 mg tablet active Not Available Not Available Not Available Silvadene 1 % topical cream Apply 1 applicat ion twice a day by topical route for 10 days. 06/11 completed Not Available Not Available Not Available tamsulosi n 0.4 mg capsule TAKE ONE CAPSULE BY MOUTH EVERY DAY 12/27 completed not taking 08/29/21 am Not Available Not Available Not Available amitripty line 10 mg tablet active Not Available Not Available No t Available Proctozon e-HC 2.5 % topical cream perineal applicato r active Not Available Not Available Not Available cephalexi n 500 mg capsule Take 1 capsule 3 times a day by oral route for 7 days. 02/24 completed Not Available Not Available Not Available nystatin 100,000 unit/gram topical cream APPLY TO THE AFFECTED AREA(S) BY TOPICAL ROUTE 2 TIMES PER DAY active PRN Not Available Not Available No t Available hydrochlo rothiazid e 12.5 mg capsule Take 1 capsule every day by oral route. active Not Available Not Available No t Available methimazo le 5 mg tablet TAKE ONE TABLET BY MOUTH EVERY other DAY 12/27 completed Not Available Not Available Not Available Cheratuss in AC 10 mg-100 mg/5 mL oral liquid Take 10 mL every 4 hours by oral route as needed for 4 days. 10/23 completed Not Available Not Available Not Available levofloxa william 500 mg tablet 12/24 completed Not Available Not Available Not Available oxycodone -acetamin ophen 7.5 mg-325 mg tablet 12/24 completed Not Available Not Available Not Available albuterol sulfate HFA 90 mcg/actua tion aerosol inhaler INHALE 2 PUFFS EVERY 4 HOURS PRN 2021 active Not Available Not Available Not Avai lable ketoconaz ole 2 % topical cream APPLY TOPICALL Y TO THE AFFECTED AREA ONCE DAILY 12/27 completed PRN Not Available Not Available Not Available doxycycli ne hyclate 100 mg tablet Take 1 tablet(s ) po bid with food 10/23 completed Not Available Not Available Not Available amoxicill in 875 mg-potass ium clavulana te 125 mg tablet 03/23 completed Not Available Not Available Not Available amoxicill in 500 mg-potass ium clavulana te 125 mg tablet Take 1 tablet 3 times a day by oral route for 5 days. 09/18 completed Not Available Not Available Not Available oxycodone 5 mg tablet TAKE 1 TABLET BY MOUTH EVERY 4 HOURS NEEDED FOR MILD PAIN 12/27 completed Not Available Not Available Not Available Bactrim DS 800 mg-160 mg tablet Take 1 tablet every 12 hours by oral route for 10 days. 06/11 completed Not Available Not Available Not Available metoprolo l tartrate 25 mg tablet Take 1/2 tab twice daily active Not Available Not Available No t Available Microspac er active Not Available Not Available Not Available hydrocodo ne 7.5 mg-acetam inophen 300 mg tablet active Not Available Not Available Not Available hydrochlo rothiazid e 12.5 mg tablet TAKE ONE TABLET BY MOUTH EVERY DAY 09/22 completed 07/15/23 states no longer taking LJP Not Available Not Available Not Available cholecalc iferol (vitamin D3) 1,250 mcg (50,000 unit) capsule Take 1 capsule every week by oral route for 90 days. 10/17 completed Not Available Not Available Not Available Vitamin D3 50 mcg (2,000 unit) capsule Take 1 capsule every day by oral route. 01/02 completed Not Available Not Available Not Available Flowflex COVID-19 Antigen Home Test kit USE DIRECTED ON PACKAGIN G 07/15 completed Not Available Not Available Not Available Vitals Date Recorded Body height Provider Name an d Address Organization Details Last Updated DateTime 12/28/2024 150.88 cm Anabel Murphy MA MA [facility] 12/28/2024 13:50:07 Social History Question Answer Notes LastModified by Organizat ion Details LastModified Time Tobacco Smoking Status Never Smoker Not Available [employer] 08/22/2020 03:15:14 Do You Have An Advance Directive? No Form Given 04/06/10 [id number] Information not available 08/22/2020 What Is Your Level Of Alcohol Consumption? Occasional 1 Glass A Few Times Per Week Information not available 09/22/2023 Do You Wear A Helmet When Biking? No N/a Information not available 08/29/2021 What Is Your Level Of Caffeine Consumption? Occasional Rarely Information not available 09/22/2023 How Much Tobacco Do You Chew? None [id number] Information not available 08/22/2020 What Type Of Diet Are You Following? REGULAR Information not available 09/05/2022 Which Illicit Or Recreational Drugs Have You Used? None [id number] Information not available 08/22/2020 Do You Or Have You Ever Used E-cigarettes Or Vape? 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 No Information not available 09/22/2023 How Many Days In The Past Year Have You Had A Heavy Drinking Consumption (4+ Female, 5+ Male)? 0 Information not available 08/06/2013 Are There Any Guns Present In Your Home? No [id number] Information not available 08/22/2020 Do You Use Insect Repellent Routinely? No Information not available 09/28/2024 Live Alone Or With Others? With Others [email or web address] Information not available 09/05/2011 Patient Has Health Care Proxy Signed And In Chart Yes Information not available 01/17/2022 CCM Consent Discussion 03/06/2023 Information not available 03/14/2023 Marital Status Information not available 09/05/2011 Mosquito Repellent Used Routinely No Information not available 10/11/2016 What Was The Date Of Your Most Recent Tobacco Screening? 09/28/2024 Information not available 09/28/2024 How Many Children Do You Have? 2 [id number] Information not available 08/22/2020 What Is Your Relationship Status? Information not available 09/05/2022 Do You Use Your Seat Belt Or Car Seat Routinely? Yes Information not available 08/29/2021 Seat Belts Used Routinely Yes [email or web address] Information not available 09/05/2011 Smoke Alarm In Home Yes Information not available 10/11/2016 Do You Have Smoke And Carbon Monoxide Detectors In Your Home? Yes Information not available 08/29/2021 Are You Passively Exposed To Smoke? No Information not available 08/29/2021 Do You Or Have You Ever Used Smokeless Tobacco? Never Used Smokeless Tobacco [id number] Information not available 08/22/2020 How Much Tobacco Do You Smoke? No [id number] Information not available 08/22/2020 What Types Of Sporting Activities Do You Participate In? None [id number] Information not available 08/22/2020 General Stress Level Medium Information not available 08/29/2021 Do You Use Any Illicit Or Recreational Drugs? No Information not available 09/05/2022 Do You Use Sunscreen Routinely? Yes Information not available 08/29/2021 How Many Years Have You Smoked Tobacco? 0 [id number] Information not available 08/22/2020 Do You Or Have You Ever Used Any Other Forms Of Tobacco Or Nicotine? No [email or web address] Information not available 08/27/2024 How Many Days In The Past Year Have You Consumed 4 Or More Drinks? 0 Information not available 09/28/2024 Sex: Female Functional Status Question Answer Note LastModified by Organizat ion Details LastModified Time What is your exercise level? Occasional walking Information not available 08/29/2021 Mental Status None recorded. Family History Relationship Description Onset Age of this Age Resolved Age Notes LastModified by Organization Details LastModified Time Father Heart disease 82 renal failur e Not available 09/22/2013 06:40:56 Father Hypertensive disorder [email or web address] Not available 01/2013 06:40:56 Notes:mother DM, HTN, thyroi d; brother healthy Medical History Condition Response Kidney Stones Y Hypertension Y Gynecological HistoryNo gynecological history recorded. Obstetrics History GPAL:G 0 P 0 0 0 0 Immunizations Vaccine Type Date Status Note Provider Nam e and Address Organization Details Recorded Time Tdap 1 completed Not Available [facility] 11/06/2019 02:15:42 Td(adult) unspecified formulation 6 completed Not Available [facility] 02/14/2023 06:10:11 Influenza, split virus, trivalent, PF 3 completed Not Available [facility] 11/06/2019 02:33:40 Influenza, split virus, quadrivalent, preservative 4 completed Not Available [facility] 02/14/2023 06:10:10 Influenza, split virus, quadrivalent, preservative 6 completed Not Available [facility] 02/14/2023 06:10:10 Influenza, split virus, quadrivalent, preservative 7 completed Not Available [facility] 02/14/2023 06:10:10 influenza, unspecified formulation 1 completed Not Available [facility] 02/14/2023 06:10:11 Influenza, split virus, quadrivalent, preservative 9 completed Not Available [facility] 02/14/2023 06:10:10 Td (adult), 2 Lf tetanus toxoid, preservative free, adsorbed 1 [facility] 16:53:26 influenza, unspecified formulation 0 completed Not Available [facility] 02/14/2023 06:10:11 COVID-19, mRNA, LNP-S, PF, 30 mcg/0.3 mL dose 1 completed Not Available [facility] 02/14/2023 06:10:10 COVID-19, mRNA, LNP-S, PF, 30 mcg/0.3 mL dose 1 completed Not Available [facility] 02/14/2023 06:10:10 Influenza, split virus, quadrivalent, PF 2 completed Lynne Thomas NP [address] [place] [address], [phone] [facility] [place]05[place] 15:32:56 Influenza, high-dose, quadrivalent, PF 3 completed ENEDELIA Diamond [address] [place] [address], [phone], [facility] [place]/22/[place]23 11:31:33 Influenza, split virus, trivalent, PF 4 completed July Nino MD [address] [place] [address], [phone], [facility] [place]/27/2024 11:04:46 Influenza, split virus, quadrivalent, preservative 1 completed Not Available [facility] 02/14/2023 06:10:10 zoster recombinant 0 completed Not Available [facility] 02/14/2023 06:10:10 zoster recombinant 9 completed Not Available [facility] 02/14/2023 06:10:10 COVID-19, mRNA, LNP-S, PF, 30 mcg/0.3 mL dose 1 completed Not Available [facility] 02/14/2023 06:10:10 Past Encounters Encounter ID Performer Location Encounter Start Date Encounter Closed Date Diagnosis/Indication Diagnosis SNOMED-CT Code Diagnosis ICD10 Code Diagnosis Note [id number] Physical Therapy, [facility] [address] [place] [address] 02/13/2001 13:30:00 11/09/2008 02:02:29 [id number] [facility], [address]ICE [address] [place] [address] 07/13/2001 10:15:00 11/09/2008 02:02:29 [id number] [facility], [address] [place] [address] 10/06/2001 14:30:00 11/09/2008 02:02:29 [id number] [facility], [address] [place] [address] 01/15/2002 13:00:00 11/09/2008 02:02:29 [id number] Physical Therapy, [facility] [address] [place] [address] 01/18/2002 14:00:00 11/09/2008 02:02:29 [id number] [facility], [address] [place] [address] 11/19/2002 11:17:44 11/09/2008 02:02:29 [id number] [facility] - [facility] [address] [place] [address] 01/24/2003 13:22:46 11/09/2008 02:02:29 [id number] [facility], [address]ICE [address] [place] [address] 01/25/2003 09:07:35 11/09/2008 02:02:29 [id number] [facility], [address]ICE [address] [place] [address] 03/30/2003 13:21:01 11/09/2008 02:02:29 [id number] LAB - [address] [address] 05/10/2003 09:17:09 11/09/2008 02:02:29 [id number] [facility], OFFICE [address] [facility] [place] [address] 05/21/2003 14:59:06 11/09/2008 02:02:29 [id number] Radiology , [facility] [address] [place] [address] 07/14/2003 10:07:26 07/14/2003 17:23:44 [id number] Radiology , [facility] [address] [place] [address] 07/14/2003 00:00:00 11/09/2008 02:02:29 [id number] [facility], OFFICE [address] [facility] [place] [address] 02/14/2004 13:34:21 02/14/2004 17:28:29 [id number] LAB - [facility] [address] [place] [address] 02/13/2004 14:37:06 02/13/2004 14:37:15 [id number] Radiology , [facility] 70 [facility] [place] [address] 02/24/2004 09:47:17 11/09/2008 02:02:29 [id number] [facility], OFFICE [address] [facility] [place] [address] 03/13/2004 10:50:55 03/13/2004 14:17:02 [id number] [facility], OFFICE [address] [facility] [place] [address] 04/04/2004 11:49:50 04/04/2004 15:37:12 [id number] LAB - [facility] [address] [facility] [place] [address] 04/04/2004 16:32:48 04/04/2004 16:33:00 [id number] [facility], OFFICE [address] [facility] [place] [address] 08/17/2004 14:30:16 08/19/2004 10:29:03 [id number] Radiology , [facility] [address] [facility] [place] [address] 08/24/2004 13:29:26 08/27/2004 14:08:20 [id number] LAB - [facility] [address] [facility] [place] [address] 10/15/2004 13:30:52 10/15/2004 13:31:16 [id number] [facility], OFFICE [address] [place] [address] 11/02/2004 13:57:17 11/02/2004 17:15:40 [id number] LAB - [facility] [address] [place] [address] 12/26/2004 15:58:39 12/26/2004 15:58:55 [id number] [facility], OFFICE [address] [place] [address] 01/31/2005 11:33:35 11/09/2008 02:02:29 [id number] [facility], OFFICE [address] [place] [address] 02/21/2005 09:32:33 02/21/2005 14:09:25 [id number] LAB - [facility] [address] [place] [address] 02/25/2005 08:35:02 02/25/2005 08:35:06 [id number] [facility], OFFICE [address] [place] [address] 03/04/2005 14:33:40 03/05/2005 09:19:30 [id number] LAB - [facility] [address] [place] [address] 05/17/2005 13:21:40 05/17/2005 13:22:16 [id number] [facility], OFFICE [address] [place] [address] 05/23/2005 11:23:40 11/09/2008 02:02:29 [id number] [facility], OFFICE [address] [place] [address] 08/22/2005 11:36:09 11/09/2008 02:02:29 [id number] [facility] , [facility] [address] [place] [address] 09/10/2005 11:47:07 11/09/2008 02:02:29 [id number] [facility], OFFICE [address] [place] [address] 12/21/2005 14:52:06 12/22/2005 08:59:43 [id number] [facility], OFFICE [address] [place] [address] 12/26/2005 08:42:45 12/26/2005 10:13:32 [id number] LAB - [facility] [address] [place] [address] 12/26/2005 08:35:37 12/26/2005 08:35:49 [id number] Eye Care, [facility] [address] [place] [address] 12/31/2005 08:41:49 11/09/2008 02:02:29 [id number] , [facility], OFFICE [address] [facility] [place] [address] 01/07/2006 10:40:38 01/10/2006 10:38:25 [id number] , [facility], OFFICE [address] [facility] [place] [address] 01/07/2006 10:40:38 01/10/2006 10:38:25 [id number] Radiology , [facility] [address] [facility] [place] [address] 01/10/2006 13:29:40 01/11/2006 11:03:00 [id number] , [facility], OFFICE [address] [facility] [place] [address] 09/12/2006 10:15:29 09/15/2006 08:46:22 [id number] Radiology , [facility] [address] [place] [address] 10/07/2006 11:38:02 10/08/2006 09:18:10 [id number] , [facility], OFFICE [address] [facility] [place] [address] 12/09/2006 14:33:09 12/09/2006 14:33:38 [id number] Radiology , [facility] [address] [place] [address] 12/08/2007 09:39:18 12/09/2007 09:02:56 [id number] Radiology , [facility] [address] [place] [address] 07/25/2009 13:35:46 07/28/2009 10:05:35 [id number] FP, [facility], OFFICE [address] [facility] [place] [address] 04/06/2010 11:36:30 04/09/2010 10:27:34 [id number] Radiology , [facility] [address] [place] [address] 08/28/2010 09:31:50 09/03/2010 08:20:40 [id number] , [facility], [address]ICE [address] [place] [address] 07/26/2011 14:22:31 07/26/2011 15:18:47 [id number] [facility] [address] [place] [address] 12/24/2011 09:01:03 12/26/2011 08:52:46 [id number] [facility], OFFICE [address] [place] [address] 02/18/2012 16:19:35 02/18/2012 17:22:48 [id number] [facility], OFFICE [address] [place] [address] 02/25/2012 10:07:37 02/25/2012 10:48:08 [id number] Rika Lopez MA [facility], [address] [place] [address] 08/04/2012 14:25:34 08/04/2012 15:29:08 [id number] Rika Lopez MA [facility], [address] [place] [address] 06/01/2013 16:45:07 06/02/2013 12:25:39 Vascular disorder [id number] pt presents for evaluation of chronic venous ulceration which flared up within the last 48 hours. historical ly pt responded to keflex, but was told she may require bactrim next time. pt took 1 DS bactrim and noticed significan t improvemen t. Peripheral venous insufficiency [id number] Continue with support stockings. [id number] Rika Lopez MA [facility], [address] [place] [address] 08/06/2013 09:32:30 08/06/2013 10:13:04 Adult health examination [id number] see Risk Assessment and Lifestyle Change Counseling section above Counseling [id number] Influenza vaccine needed [id number] [id number] Rika Lopez MA [facility], [address] [place] [address] 09/21/2013 14:34:06 09/21/2013 15:20:20 Sinusitis 90406912 Pt enc to use claudine pot, inc fluids and anti-infla mmatories. Use Afrin or sudafed before flight. Rx abx to take only with persistent or increased sx. while traveling. Probiotics [id number] Chel Ashley [facility], [address] [place] [address] 05/24/2014 15:20:58 05/24/2014 16:10:32 Abdominal pain 98996043 will check labs consider abd u/s call with increased sx [id number] Gail Mahmood [facility], [address] [place] [address] 01/27/2015 15:15:06 01/30/2015 13:02:21 Sinusitis [id number] [facility], [address] [place] [address] 07/04/2015 16:42:13 07/04/2015 17:35:20 Paresthesia [id number] Lynne Thomas NP , [facility], [address] [place] [address] 10/06/2015 14:35:55 10/06/2015 15:32:47 Adult health examination 990487314 Z00.00 see Risk Assessment and Lifestyle Change Counseling section above PT prefers qoyr mammo. Counseling [id number] Z71 .9 Screening mammography 24 342257 Z12.31 [id number] Susy Brock [facility], [address] [place] [address] 11/04/2015 10:03:19 11/04/2015 10:32:03 Sinusitis 74882298 J32.9 push fluids, humidify air. use probiotics while on anibiotics . follow up if symptoms persist or worsen. [id number] Lynne Thomas NP , [facility], [address] [place] [address] 08/09/2016 13:24:11 08/09/2016 14:00:34 Palpitations 56577423 R00.2 discussed vagus nerve/PVCs assoc with eating and stress.Dis cussed smaller meals, weight loss, stress mgmt.repor t any chest pain with exertion, any other concerns. [id number] Carolina Hanley, ENEDELIA-SUMI , [facility], [address] [place] [address] 08/31/2016 09:09:12 08/31/2016 11:16:13 Cough 86884983 R05 preliminar y read suggests pneumonia. Pneumonia 942837525 J18. 9 exam consistent w/ RLL pneumonia, pt advised to follow up with pcp within week, call for worsening symptoms or failure to resolve. [id number] TIFFANY Pantoja, [facility], [address] [place] [address] 09/06/2016 13:56:24 09/09/2016 11:27:05 Pneumonia 152068511 J18.9 respirator y exam sig improved, pt feels much better. f/up x-ray at 6 weeks. [id number] YAEL Zapata, [facility], [address] [place] [address] 10/11/2016 14:23:59 10/15/2016 11:06:58 Adult health examination 013307285 Z00.00 see Risk Assessment and Lifestyle Change Counseling section above Counseling 852741749 Z71 .9 Acute sinusitis 61451899 J01.90 Pt is provided Rx but does not intend to fill it unless sx progress over holidays -fever, purulent nasal discharge. [id number] YAEL Zapata, [facility], [address] [place] [address] 11/22/2016 07:23:49 11/22/2016 08:01:08 Fatigue 44790994 R53.83 will check labs, f/u per results Gastroesop hageal reflux disease 975077192 K21.9 [id number] YAEL Zapata, [facility], [address] [place] [address] 12/24/2016 09:25:32 12/24/2016 09:54:21 Gastroesophageal reflux disease 305568640 K21.9 f/u with GI as planned.GE RD precaution s Benign ess ential hypertension 8777833 I10 Blood pressure at goal Hyperthyroidism 58217138 E05.90 recheck labs 3mos Vitamin D deficiency 347 07826 E55.9 pt refuses high dose Vit D replacemen t - will take 4000IU daily and repeat 3mos. History of calculus of kidney 157757233 Z87.442 report any recurrence . [id number] TIFFANY Pantoja, [facility], [address] [place] [address] 09/05/2017 16:05:51 09/05/2017 16:40:34 External hordeolum 3218110 H00.019 continue with warm compresses , monitor. [id number] Lynne Thomas NP , [facility], [address] [place] [address] 10/17/2017 10:34:18 10/17/2017 11:40:41 Adult health examination 872961063 Z00.00 see Risk Assessment and Lifestyle Change Counseling section above Palpitations 63430864 R0 0.2 discussed vagus nerve/PVCs assoc with eating and stress.Dis cussed smaller meals, weight loss, stress mgmt.repor t any chest pain with exertion, any other concerns. Tinea pedis 9302163 B35. 3 [id number] Carolina Hanley, [employer]PORATE SALES REPRESENTATIVE-SUMI , [facility], [address] [place] [address] 01/02/2018 10:35:54 01/05/2018 08:55:06 Acute upper respiratory infection 27154057 J06.9 Educated patient that URI is a viral illness of the upper airways. It is not bacterial and does not benefit from antibiotic s. Average duration of URI is 7-10 days but in a recent trial, treatment at 7-10 days of illness with antibiotic s, intranasal steroids, or placebo did not alter natural history at 3 weeks. Recommende d symptomati c treatments including NSAIDS, semi-uprig ht sleep position, antihistam carmen at HS, limited course of nasal sympathomi metics and/or cough syrups, and nasal saline rinses with soft squeeze bottle or Neti pot. Return for fevers > 101 for 3 days, worsening sinus pain, or failure to resolve in 2-4 weeks. Cough with fever 5896882 03 R05 [id number] Katarina borrero PA-C , [facility], [address] [place] [address] 01/05/2018 15:49:27 01/05/2018 16:42:45 Cough 30160025 R05 persistent .CXR 01/02 zulema sun for CAP due to persistenc e of sxs and malaisetri al of bronchodil atorf/u if sxs persisting > 1wk, sooner for fever or worsening sxs. [id number] Lynne Thomas NP , [facility], [address] [place] [address] 10/23/2018 10:29:24 10/23/2018 14:49:29 Adult health examination 530837241 Z00.00 see Risk Assessment and Lifestyle Change Counseling section above Depression screening 171 534339 Z13.89 depression screening tool administer ed, entered into emr, scored and discussed, time greater than 7.5 minutes Screening mammography 24 789968 Z12.31 Cough 61707097 R05 Vitamin D deficiency 347 17285 E55.9 sporadic use - reassured re safety of higher dose vitamin D - [id number] YAEL Zapata, [facility], [address] [place] [address] 03/02/2019 09:27:55 03/03/2019 09:33:15 Palpitations 26489079 R00.2 Have holter monitor placed today. CN will consult with Endo re TSH results and sx. [id number] YAEL Zapata, [facility], [address] [place] [address] 05/28/2019 12:31:11 05/28/2019 13:00:28 Increased frequency of urination 790957105 R35.0 no evidence of UTI but culture sent Pain in pelvis 33596850 R10.2 Will check labs - exam reassuring . Advised re urgent care on weekends. COnsider u/s, planning feeder consult [id number] TIFFANY Pantoja, [facility], [address] [place] [address] 08/13/2019 17:12:51 08/13/2019 17:43:00 Kidney stone 74791552 N20.0 hx of calculirea ssuring UAhowever due to persistent symptoms and report that symptoms are similar to previous bout will order us Left lower quadrant pain 567141898 R10.32 reviewed caesar shepherd al, low suspicion for acute infection. if symptoms worse rtc [id number] YAEL Zapata, [facility], [address] [place] [address] 01/11/2020 08:10:27 01/19/2020 14:23:20 Benign essential hypertension 3331666 I10 Blood pressure not at goal - start HCTZ = has taken in past, normal CMP 07/2019. F/u in one week via portal with readings - call sooner prn. [id number] YAEL Zapata, [facility], [address] [place] [address] 01/14/2020 13:34:29 01/18/2020 13:31:00 Acute sinusitis 85839121 J01.90 [id number] YAEL Vidal, [facility], [address] [place] [address] 04/03/2020 09:28:04 04/06/2020 13:25:30 Acute sinusitis 88070151 J01.90 Encourage force fluids, steam inhalation as needed, adequate rest. Take antibiotic s as prescribed , probiotics while on the antibiotic and follow up if not improving or symptoms worsening. Enc trial of saline nasal spray daily to help prevent recurrence s. Benign ess ential hypertension 1942707 I10 Recently started on meds for this. Doesn't check BP at home - too hard to use cuff herself. Enc. healthy diet/exerc ise habits and someone will contact her to schedule mobile blood draw. [id number] Lynne Thomas NP , [facility], [address] [place] [address] 08/25/2020 09:59:19 08/30/2020 11:14:50 Adult health examination 841243467 Z00.00 see Risk Assessment and Lifestyle Change Counseling section above Depression screening 171 760198 Z13.89 depression screening tool administer ed, entered into emr, scored and discussed, time greater than 7.5 minutes Screening for alcohol abuse 030617795 Z13.39 Counseling 484369209 Z71 .89 including cardiovasc ular counseling - lipids excellent, could improve exercise and diet matt during stressful time, stress mgmt -declines counseling , followed by cardiology currently Screening mammography 24 190049 Z12.31 Atrial tachycardia 41833 6006 I47.1 will recheck thyroid labs Anxiety state 753450422 F41.1 suggest call [facility] for help with mother - need to protect her own life, marriage, etc. - balance. [id number] Mimi Velazquez MD Endocrino logy, [address] [address] 12/20/2020 07:04:55 12/20/2020 08:21:40 Subclinical hyperthyroidism 085096302 E05.90 -baseline labs -please check portal for results -consider thyroid uptake and scan if test for Graves disease (TSI) is negative -consider treatment with methimazol e after testing -follow up 3mo or next available Palpitations 99525221 R0 0.2 Fatigue 88223522 R53.83 [id number] Lynne Thomas NP , [facility], [address] [place] [address] 01/17/2021 09:27:37 01/18/2021 09:09:02 Non-toxic uninodular goiter 743744605 E04.1 consult with endo re if OK for thyroid uptake in light of IVP dye allergy Dr Velazquez spoke with pt and arranged pre-med with benadryl before thyroid uptake scan Screening mammography 24 267848 Z12.31 [id number] YAEL Zapata, [facility], [address] [place] [address] 02/22/2021 10:35:27 02/23/2021 16:33:30 Left lower quadrant pain 460658321 R10.32 will obtain labs - pt prefers to wait for ersults and then discuss abx - prefers to see if it will resolve however with some sx worsening, I discussed the urgency of treatment. She will get labs drawn today and I will f/u with results. Call sooner or go to ER with vomiting, fever, inc pain. 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, [address] [place] [address] 03/06/2021 13:32:52 03/07/2021 12:43:02 Abdominal pain 19622394 R10.9 Lower abdominal and pelvic pain. Suspect kidney stone, hx of sxs in past. Sxs started in LLQ, suspect stone traveling from left kidney. Did have some relief and increased urination after taking Flomax recently. UA and culture, US of kidneys and bladder today. STAT referral to urology. Start Flomax daily. urine strainer provided. Go to ED if pain becomes intolerabl e, fever develops, or if unable to eat or drink. Pt. agrees to plan. History of calculus of kidney 167706865 Z87.442 5 mm kidney stone in past. [id number] Mimi Velazquez MD Endocrino logy, [facility] [address] [place] [address] 04/30/2021 07:27:13 04/30/2021 18:58:24 Toxic nodular goiter 03621513 E05.20 -biopsied left lower thyroid 4cm nodule today -methimazo le 5mg tabs, 1 tab by mouth every other day from daily -labsmonth ly until stable -consider surgery to remove if symptoms worsen ie stuck in throat food [id number] Endocrino logy, [facility] [address] [place] [address] 05/09/2021 14:26:08 05/09/2021 19:07:43 Toxic nodular goiter 90411589 E05.20 04/30/21 fine needle biopsy of the left lower thyroid 4cm nodule suggests a benign thyroid nodule. -methimazo le 5mg tabs, 1 tab by mouth every other day-labs every 2 month until stable -consider surgery to remove left toxic nodule [id number] Lynne Thomas NP , [facility], [address] [place] [address] 08/29/2021 15:50:47 08/29/2021 16:52:01 Adult health examination 162401066 Z00.00 see Risk Assessment and Lifestyle Change Counseling section above Depression screening 171 651272 Z13.31 depression screening tool administer ed, entered into emr, scored and discussed, time greater than 7.5 minutes Screening for alcohol abuse 216252785 Z13.39 Counseling 733437646 Z71 .89 including cardiovasc ular counseling - lipids excellent, could improve exercise and diet matt during stressful time, stress mgmt -declines counseling , followed by cardiology currently Gastroesop hageal reflux disease 272693551 K21.9 f/u with GI as planned.GE RD precaution s Active or passive immunization 203635913 Z23 Supraventr icular tachycardia 7127783 I47.1 stable Submammary intertrigo 24 2007517 L30.4 Toxic nodular goiter 577 61891 E05.20 surgeru sched in October. Feeling well VSS [id number] Lynne Thomas NP , [facility], [address] [place] [address] 12/27/2021 10:54:26 01/02/2022 11:39:55 Pain of right knee joint 1230791819 02143 M25.561 referral to PT, might benefit from cortisone injection Pain in ri ght lower limb 374817530 M79.604 will r/o DVT - low suspicion. [id number] Mimi Velazquez MD Endocrino logy, [address] [address] 01/02/2022 11:29:27 01/02/2022 12:08:02 Toxic nodular goiter 68941575 E05.20 -improved post lobectomy- check tsh annually or as needed History of parathyroidectomy 3089021507 10333 Z90.89 -reassess parathyroi d hormone due to past kidney stone and parathyroi d adenoma History of calculus of kidney 322453088 Z87.156 [id number] Marycruz williamson, PT Physical Therapy, [facility] [address] [place] [address] 01/07/2022 11:35:56 01/07/2022 16:16:03 Pain of right knee joint 3927386293 18265 M25.077 [id number] Marycruz williamson, PT Physical Therapy, [facility] [address] [place] [address] 01/17/2022 11:08:03 01/17/2022 12:32:20 Pain of right knee joint 7796985720 91783 M25.221 [id number] Marycruz williamson, PT Physical Therapy, [facility] [address] [place] [address] 01/24/2022 11:06:25 01/24/2022 11:48:09 Pain of right knee joint 9643342041 88621 M25.224 [id number] Marycruz williamson, PT Physical Therapy, [facility] [address] [place] [address] 01/29/2022 10:08:51 01/29/2022 16:15:33 Pain of right knee joint 6349093894 65154 M25.896 [id number] Marycruz williamson, PT Physical Therapy, [facility] [address] [place] [address] 02/07/2022 11:35:07 02/07/2022 12:19:58 Pain of right knee joint 5284069324 72394 M25.893 [id number] Marycruz williamson, PT Physical Therapy, [address] [address] 02/14/2022 11:34:03 02/14/2022 13:50:35 Pain of right knee joint 8274036000 03489 M25.916 [id number] Marycruz williamson, PT Physical Therapy, [address] [address] 03/06/2022 11:31:51 03/06/2022 15:42:07 Pain of right knee joint 7938068063 75085 M25.917 [id number] Lynne Thomas NP , [facility], [address] [place] [address] 09/05/2022 10:16:39 09/05/2022 11:06:43 Supraventricular tachycardia 3637893 I47.1 stable Adult heal th examination 342396027 Z00.00 see Risk Assessment and Lifestyle Change Counseling section above Depression screening 171 457939 Z13.31 depression screening tool administer ed, entered into emr, scored and discussed, time greater than 7.5 minutes Screening for alcohol abuse 250638134 Z13.39 Counseling 959489389 Z71 .89 including cardiovasc ular counseling - lipids excellent, could improve exercise and diet matt during stressful time, stress mgmt -declines counseling , followed by cardiology currently Active or passive immunization 239421301 Z23 Mild inter mittent asthma 327593928 J45.20 stable Screening for osteoporosis 092258839 Z13.820 Screening mammography 24 594871 Z12.31 History of parathyroidectomy 7501471947 69671 Z90.89 followed by endo [id number] Mimi Velazquez MD Endocrino logy, [address] [address] 08/29/2022 11:43:17 08/30/2022 12:42:32 Toxic nodular goiter 71653572 E05.20 -improved post lobectomy- check tsh annually or as needed History of calculus of kidney 267016259 Z87.442 History of parathyroidectomy 7983014907 92798 Z90.89 -reassess parathyroi d hormone due to past kidney stone and parathyroi d adenoma Secondary hyperparathyroidism 18005365 E21.1 -try to add at least one high calcium food/drink daily-calc ium citrate 200mg by mouth 2x/d-reche ck in 2 weeks pth [id number] Lynne Thomas NP , [facility], [address] [place] [address] 03/06/2023 11:10:08 03/06/2023 14:32:50 Supraventricular tachycardia 3781233 I47.1 stable Toxic nodular goiter 577 76149 E05.20 post surg partial thyroidect omyeuthyro id Secondary hyperparathyroidism 56373682 E21.1 followed by endo [id number] ENEDELIA Diamond , [facility], [address] [place] [address] 07/15/2023 15:34:13 07/15/2023 16:23:25 Dysuria 45496359 R30.0 Patient w/ vaginal pressure and itching around urethraUA wnlpelvic exam wnlobtaine d vaginal swab for yeast, BV, trich, mycoplasma discussed possible other etiologies , low suspicion for kidney stone but pt does have hx. could be growing fibroid or cyst, or vaginal prolapse. advised pt to f/u with dr hernandez if sx persist and swab wnl. Vaginal irritation 19563 6004 N89.8 see above [id number] , [facility], [address] [place] [address] 07/23/2023 15:35:05 07/23/2023 17:48:03 Left lower quadrant pain 541870867 R10.32 pt w/ LLQ discomfort , bloating, nausea, vaginal pressure ongoing for 2.5 weeksdif dx includes vaginal prolapse, diverticul itis, planning feeder malignancy .notably pt has been doing optavia meal plan for past 5 mos, mostly soy-based pre-made mealsadvis ed pt to try clear liquid diet for 2 days and will plan to order CT scan for assessment pt to f/u if sx not improved, urgent care hours reviewed. pt to seek care in ed if acutely worsening pain, fever, vomiting. [id number] Thomas Hightower MD , [facility], [address] [place] [address] 08/15/2023 14:23:55 08/15/2023 15:13:55 Acute sinusitis 30547926 J01.90 - Sxs most consistent w viral sinusitis- Could be bacterial but without fever or purulent nasal drainage- 7 days of sxs at time of visit- EOMI and no pain with eye movement, no nuchal rigidity, no fever- Significan t sinus tenderness - Discussed natural course of viral and bacterial rhinosinus itis- Discussed rationale for waiting ten days to start antibiotic s- Prescribed Augmentin 500mg-125m g TID x5 days to be startedif and only ifsxs have not improved by day ten- Side effects/AD Rs and administra tion reviewed w pt- Return precaution s given- Pt will call clinic if not improving or for any other concerns [id number] ENEDELIA Diamond , [facility], [address] [place] [address] 09/22/2023 08:42:11 09/22/2023 17:27:02 Adult health examination 796302698 Z00.00 Depression screening 171 536955 Z13.31 depression screening tool administer ed Screening for alcohol abuse 846686674 Z13.39 Alcohol use screening tool administer ed Active or passive immunization 761867841 Z23 Supraventr icular tachycardia 2900619 I47.10 followed by cardiology , has annual holter monitorsst able on metoprolol requesting most recent cardiologi notes Kidney stone 09839822 N2 0.0 3mm kidney stone noted on CT in julypt denies any hematuria, flank pain, dysuria, abd painadvise d may pass on its own. if having sx advised pt to f/u to discuss pain medication and flomax to help pass stone Neoplasm o f uncertain behavior of skin 78166423 D48.5 2xse9md scabbed lesion overlying lumbar spineasymp tomatic but scabbed lesion persisting for a few monthsdisc ussed removal and shave biopsy ? AK vs SCC vs BCC. pt to schedule shave biopsy appt History of parathyroidectomy 7003971659 19103 Z90.89 hx parathyroi d adenoma and toxic nodular goiter, status post left thyroid lobectomy 10/31/21 [id number] Tamela Quick DO , [facility], [address] [place] [address] 12/14/2023 09:23:20 12/14/2023 10:02:34 Pharyngitis 104540053 J02.9 Patient presents for evaluation of sore throat that is consistent with {{URI* str ep flu abs cess}}. We will treat with: Discussed supportive measures. Follow up if not improving or with new symptoms, or any other concerns. Acute uppe r respiratory infection 72860859 J06.9 Educated patient that URI is a viral illness of the upper airways. It is not bacterial and does not benefit from antibiotic s. Average duration of URI is 7-10 days but in a recent trial, treatment at 7-10 days of illness with antibiotic s, intranasal steroids, or placebo did not alter natural history at 3 weeks. Recommende d symptomati c treatments including NSAIDS, semi-uprig ht sleep position, and nasal saline rinses with soft squeeze bottle or Neti pot. Honey is a safe and effective treatment for cough and can be especially helpful for nighttime cough. Warm salt water gargles 3x daily, and tea with lemon can help to relieve throat pain. Drink plenty of fluids and get adequate rest. Return for fevers > 101 for 3 days, worsening sinus pain, or failure to resolve in 2-4 weeks. [id number] ENEDELIA Diamond , 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, [address] [place] [address] 08/27/2024 10:44:13 08/30/2024 12:34:38 Active or passive immunization 544140605 Z23 Pain of ri ght knee joint 8185921235 27342 M25.561 recurrent right knee pain? Lamar's cystaching pain in back, posterior, as well as medial and lateral joint lineslimit ed flexionmor e pain at rest than with activityde conditione d, over weight, no regular exercisewi ll check xray for lamar's cyst, arthritis, consider SM referral for injection tx afterwards start PTcontinue ibuprofens tart slow exercise routine Morbid obesity 595530094 E66.01 enc exercise routinesta rting slowconsid er the Y and getting in the waterf/u w PCP [id number] NIC LOVE DPT Physical Therapy, [facility] [address] [place] [address] 09/14/2024 16:28:15 09/15/2024 08:32:47 Pain of right knee joint 6126037060 33572 M25.561 [id number] ZAIRA Parks , [facility], [address] [place] [address] 09/28/2024 11:23:08 09/28/2024 12:18:27 Adult health examination 597503382 Z00.00 Depression screening 171 017478 Z13.31 depression screening tool administer ed Screening for alcohol abuse 964432729 Z13.39 Alcohol use screening tool administer ed Osteopenia 449945479 M85 .80 encouraged calcium supplement and weight bearing exerciseco ntinue w/ vit D supplement Hypertensive disorder 38 070227 I10 BP at goal taking HCTZ every other day and metoprolol daily Screening mammography 24 260252 Z12.31 Abrasion o f right cornea 2563657372 7572251 S05.01XA no change to visionno erythema of sclerasmal l area of fluorescei n stain uptake below iris under lower lidrx antibiotic dropsencou raged warm compresses and lubricatin g dropsf/u with optometris t if no improvemen t in 48 hrs on drops Pain of ri ght knee joint 2467841998 79692 M25.561 continue w/ PT and voltaren gel Atrial pre mature complex 735767816 I49.1 requested recent cardiology notept minimally symptomati c from cardiac perspectiv e, rare palpitatio nsencourag ed regular exercise [id number] NIC LOVE DPT Physical Therapy, [address] [address] 09/28/2024 12:23:15 09/28/2024 13:23:33 Pain of right knee joint 1493944101 75321 M25.561 [id number] NIC LOVE DPT Physical Therapy, [address] [address] 10/05/2024 11:34:03 10/05/2024 12:35:23 Pain of right knee joint 9325231939 44136 M25.561 [id number] NIC LOVE DPT Physical Therapy, [address] [address] 10/25/2024 11:36:43 10/25/2024 14:12:07 Pain of right knee joint 0119879008 06897 M25.561 [id number] NIC LOVE DPT Physical Therapy, [address] [address] 11/22/2024 12:30:47 11/22/2024 13:26:34 Pain of right knee joint 9228929490 57724 M25.561 [id number] NIC LOVE DPT Physical Therapy, [address] [address] 12/02/2024 09:04:02 12/02/2024 12:44:06 Pain of right knee joint 3617994453 85550 M25.561 [id number] Benjie Evans MD Sports Medicine, [address] [address] 12/28/2024 13:47:18 01/13/2025 12:37:52 Pain of right knee joint 9416283971 16368 M25.561 Lilli is a 69-year-ol d female with right knee pain that I believe is due to underlying osteoarthr itis. I reviewed this diagnosis with her today so was having a lengthy discussion regarding treatment options. We discussed continued physical therapy and use of oral medication s, considerat ion of corticoste roid injections , Viscosuppl ementation , and PRP injections , and potential surgery. We also had a discussion regarding supplement s such as tumeric and glucosamin e/chondroi tin as well as the relevant literature . 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 She is interested in possible Viscosuppl ementation but is not yet ready to proceed. At this point she will plan to consider her options. I did advise continuing with her physical therapy. She will plan to contact me if she wishes to proceed with Viscosuppl ementation . I am of course always happy to see her back as needed for further care in the future. Osteoarthr itis of knee 540800500 M17.11 Health Concerns Section Related Observation LastModified by Organization Detai ls LastModified Time None Recorded Concern Status LastModified by Organization Details LastModified Time None Recorded Advance Directives Directive N: form given 04/06/10 Payers Encounter Date Sequence Insurance Name Policy Number Policy [place] Covered Member ID Morocho Member ID Guarantor Name 10/05/2024 1 [place] Lilli Koehlerl [id number] Lilli Moskal 10/05/2024 2 [place] [id number] Lilli Koehlerl [id number] Lilli Moskal 10/25/2024 1 [place] Lilli Koehlerl [id number] Lilli Moskal 10/25/2024 2 [place] [id number] Lilli Koehlerl [id number] Lilli Moskal 11/22/2024 1 [place] Lilli Koehlerl [id number] Lilli Moskal 11/22/2024 2 [place] [id number] Lilli Koehlerl [id number] Lilli Moskal 12/02/2024 1 [place] Lilli Koehlerl [id number] Lilli Moskal 12/02/2024 2 [place] [id number] Lilli Williamson Mosnandal [id number] Lilli Moskal 12/28/2024 1 [place] Lilli Koehlerl [id number] Lilli Moskal 12/28/2024 2 [place] [id number] Lilli Koehlerl [id number] Lilli Moskal Notes Date Note Type Note Provider Name and Address Organization Details Recorded Time 10/05/2024 text/html Patient Specific Functional Score:{{10 20 30 40* 50 60 70 80 9 0 100}} Percent limitation in walking{{10 20 30 40 50 60 70 80* 90 100}} Percent limitation in getting up and down from the stairs{{10 20 30 40 50 60 70 80 90 * 100}} Percent limitation in getting in and out of carSubjective: Pt presents to follow-up physical therapy session reporting {{compliance with HEP* no change in symptoms improved symptom management feelin g a muscular soreness associated with last session being unable to complete HEP at dosage required due to time constraints}}. NIC LOVE DPT [address] [place] [address], [address] [facility] [place]/05/[place] 12:10:04 10/25/2024 text/html Patient Specific Functional Score:{{10 20 30 40* 50 60 70 80 9 0 100}} Percent limitation in walking{{10 20 30 40 50 60 70 80* 90 100}} Percent limitation in getting up and down from the stairs{{10 20 30 40 50 60 70 80 90 * 100}} Percent limitation in getting in and out of carSubjective: Pt presents to follow-up physical therapy session reporting {{compliance with HEP no change in symptoms improved symptom management feelin g a muscular soreness associated with last session being unable to complete HEP at dosage required due to time constraints I think things are improving slowly #}}. NIC LOVE DPT [address] [place], [address], [facility] [place]25/[place]24 12:22:43 11/22/2024 text/html Patient Specific Functional Score:{{10 20 30 40* 50 60 70 80 9 0 100}} Percent limitation in walking{{10 20 30 40 50 60 70 80* 90 100}} Percent limitation in getting up and down from the stairs{{10 20 30 40 50 60 70 80 90 * 100}} Percent limitation in getting in and out of carSubjective: Pt presents to follow-up physical therapy session reporting {{compliance with HEP no change in symptoms improved symptom management feelin g a muscular soreness associated with last session being unable to complete HEP at dosage required due to time constraints I think things are improving slowly #}}. NIC LOVE DPT [address] [place], [address], [facility] - [place] 11/22/2024 13:05:35 12/02/2024 text/html Patient Specific Functional Score:{{10 20 30 40* 50 60 70 80 9 0 100}} Percent limitation in walking{{10 20 30 40 50 60 70 80* 90 100}} Percent limitation in getting up and down from the stairs{{10 20 30 40 50 60 70 80 90 * 100}} Percent limitation in getting in and out of carSubjective: Pt presents to follow-up physical therapy session reporting {{compliance with HEP no change in symptoms improved symptom management feelin g a muscular soreness associated with last session being unable to complete HEP at dosage required due to time constraints I think there is a problem with the knee, it feels so swollen but when I do my exercises it is more flexible #}}. NIC LOVE DPT [address] [place], [id number], [facility] [place] 12/[place] 09:34:25 12/28/2024 text/html Lilli is a 69-year-old female who presents today for evaluation of right knee pain. She has had 4-5 months of pain in her right knee. She denies any injury or trauma. She has no pain with sitting or walking. She states the knee feels somewhat swollen and she has some discomfort behind the knee and difficulty bending the knee at times fully. She also feels some clicking sensations but denies any overt locking or instability. She has been doing physical therapy for 6 weeks and does feel this has produced some symptom relief. She has never had any previous right knee surgery or injections. She did stop tricking wine at night and thinks this may have helped reduce her symptoms. Benjie Evans MD [address] [place] [address], [phone], [facility] [place] 12/28/[place] 14:49:40 OBGyn Episode No OBEpisode recorded.
[2025-02-01 19:11] VITALS: BP 134/86; PULSE 66; RESP 16; TEMP 36.7; O2SAT 96
== END 2025-02-01 19:14 | disposition home or self-care (01) ==
PROVIDERS: Physician Assistant; Emergency Provider Internal Medicine
DX: N23 Unspecified renal colic (principal); Z87.442 Personal history of urinary calculi
CPT/HCPCS: 36415; 74176; 80053; 81003; 85025; 99284

== ENCOUNTER → 2025-02-01 17:01 | Outpatient (BNV) | payer MEDICARE, SELFPAY | PROVIDERS: Emergency Provider Internal Medicine; Visit Provider Radiology Diagnostic Radiology | DX: N20.0 Calculus of kidney (principal); D25.9 Leiomyoma of uterus, unspecified | CPT/HCPCS: 74176 ==

== ENCOUNTER 2025-03-31 08:04 | Outpatient (AMB) | payer MEDICARE, SELFPAY ==
--- OUTSIDE RECORDS SUMMARY | 2025-03-31 08:09 | XMS_ITS | Data Portability ---
Author Organization [facility], [facility] Address [address] [place] [address] Care Team Providers Care Clay Shop Supervisor Name Role Phone MITCHELL MONTANO Pulp Screen Operator KYLE RUIZ Credit Verifier ROSARIO BIRCH JR Sample Patternmaker MIMI VELAZQUEZ Engineering Recruiter ISAK PACHECO Primary Care Provider MY GRESHAM Thermostat Maker Assessment Encounter Date Assessment Date Assessment LastModified [...] performed for the patient: Physical Therapy Examination (43748, 71184, or 74552); Physical Therapy Re-examination (20773); Physical Performance Testing (30377); Therapeutic Exercise (78520); Neuromuscular Re-education (96549); Therapeutic Activities (11783); Manual Therapy (45316); Gait Training (44684); Self Care and Home Management Training (25771); Canalith repositioning procedures (87559) Next visit: review home program and progress [...] performed for the patient: Physical Therapy Examination (49270, 46890, or 88162); Physical Therapy Re-examination (05590); Physical Performance Testing (84570); Therapeutic Exercise (34782); Neuromuscular Re-education (55633); Therapeutic Activities (55836); Manual Therapy (29600); Gait Training (57434); Self Care and Home Management Training (85732); Canalith repositioning procedures (08273) Next visit: review home program and progress [...] Organization Details Last Modified Time Details Appointments LAB Follow-Up 2024 08:00A M [facility] Lab Not available Not available Not available Wellness Visit 30 2024 11:15A M ENEDELIA Diamond Not available Not available Not available Lab None recorded. Referral None recorded. Procedures None recorded. Surgeries None recorded. Imaging None recorded. Medication Orders None recorded. Patient TargetsNo targets recorded. Patient Instructions Encounter Date Encounter Id Patient Instructions Last Modified By Organization Details Last Modified Time 12/28/2024 [id number] Consider your options Let me know if you would like to try the gel injections Continue with physical therapy Follow-up as needed Not available 12/28/2024 14:17:03 All of the patients questions were answered and they understand the plan of care. Thank you for allowing me to participate in the care of your patient. Please feel free to contact me with any [...] furth er confi rmati on Not Available [address], [place], [address], 09/22/2024 14:40:19 09/22/20 24 09/22/2024 HGB A1C estimated average glucose 105.4 mg/dL Not Available [address], [address], 09/22/2024 14:40:19 09/22/20 24 09/23/2024 BASIC METAB OLIC PANEL glucose 75 mg/dL 70-100 Not Available [address], [address], 09/23/2024 11:49:33 09/22/20 24 09/23/2024 BASIC METAB OLIC PANEL BUN 18 mg/dL 7-18 Not Available [address], [address], 09/23/2024 11:49:33 09/22/20 24 09/23/2024 BASIC METAB OLIC PANEL creatinine 0.9 mg/dL 0.8-1. 3 Not Available [address], [address], 09/23/2024 11:49:33 09/22/20 24 09/23/2024 BASIC METAB OLIC PANEL B/C 20.0 ratio Not Available [address], [address], 09/23/2024 11:49:33 09/22/20 24 09/23/2024 BASIC METAB [...] borat ion (CKD- EPI) Equat ion (Rojelio r et. al 2020) as recom jasper d by the Natio nal [facility] y [facility] ation . eGFR is based on age, serum creat inine , and sex. CKD-E PI does not calcu late eGFR by race, does not apply to child anabella (age <18 years ), and shoul d not be used in pregn gladys. Not Available [address], [address], 09/23/2024 11:49:33 09/22/20 24 09/23/2024 BASIC METAB OLIC PANEL sodium 145 mmol/ L 136-14 5 Not Available [address], [address], 09/23/2024 11:49:33 09/22/20 24 09/23/2024 BASIC METAB OLIC PANEL potassium 4.3 mmol/ L 3.5-5. 1 Not Available [address], [address], 09/23/2024 11:49:33 09/22/20 24 09/23/2024 BASIC METAB OLIC PANEL chloride 104 mmol/ L 96-107 Not Available [address], [address], 09/23/2024 11:49:33 09/22/20 24 09/23/2024 BASIC METAB OLIC PANEL anion gap 7.8 5.0-15 .0 Not Available [address], [address], 09/23/2024 11:49:33 09/22/20 24 09/23/2024 BASIC METAB OLIC PANEL CO2 33 mmol/ L 21-32 high Not Available [address], [address], 09/23/2024 11:49:33 09/22/20 24 09/23/2024 BASIC METAB OLIC PANEL calcium 9.4 mg/dL 8.5-10 .3 Not Available [address], [address], 09/23/2024 11:49:33 09/22/20 24 09/23/2024 LIPID PANEL cholesterol 193 mg/dL <200 mg/dl Jacqueline able 200-2 39 mg/dl Borde rline High >240 mg/dl High Not Available [address], [address], 09/23/2024 11:49:34 09/22/20 24 09/23/2024 LIPID PANEL triglyceride s 67 mg/dL <150 mg/dL Angela l 150-1 99 mg/dL Borde rline High 200-4 99 mg/dL High >500 mg/dL Very High Not Available [address], [address], 09/23/2024 11:49:34 09/22/20 24 09/23/2024 LIPID PANEL direct HDL 93 mg/dL <40 mg/dl - Major Risk for CHD >60 mg/dl - Negat carmine Risk for CHD Not Available [address], [address], 09/23/2024 11:49:34 09/22/20 24 09/23/2024 LDL - [...] r is not neces ana. Not Available [address], [address], 09/23/2024 11:49:35 02/02/20 25 02/01/2025 CT, abdom en + pelvi s No observ ation record ed. [email or web address] [address] [place] [address], [address], 02/02/2025 17:44:12 03/03/20 25 03/03/2025 MAMMO , scree deondre, tomos ynthe sis, bilat eral MAMMO, SCREEN , AQUILES, BILAT: 025. BI-RAD S: 1 CLINIC AL: 69-yea r old Female for Bilate ral Screen ing Mammog aleida. [facility] lifeti me risk of 5.3%. No person al or first- degree family histor y of breast cancer . Last clinic al breast exam date is unknow n. PRIOR EXAMS: Multip le prior studie s back throug h 2015. MAMMOG EFREN TECHNI QUE: 3D mammog efren (tomos ynthes is) and 2D mammog efren (C-vie w) images are genera chastity. Images review ed with a CAD system . DENSIT Y B. There are scatte red areas of fibrog landul ar densit y. MAMMOG EFREN FINDIN GS Bilate ral: No suspic ious mass, asymme try, microc alcifi cation s, or other abnorm ality seen. CONCLU SHELBY * No eviden ce of malign gladys. RECOMM ENDATI ONS Bilate ral * Annual screen ing mammog efren. ADMINI STRATI VE: A lay summar y was mailed to your patien t karishma ortiz the result s and recomm endati ons for follow -up. OVERAL L ASSESS MENT CATEGO RY BI-RAD S-1: Negati ve. The [employer] recomm ends annual screen ing mammog efren beginn ing at age 40 for women with averag e risk of breast cancer . ELECTR ONICAL LY SIGNED : Franca Almendarez ms, M.D. on 2024 at 03:35: 45 PM Ender broderick Physic xena: Franca Almendarez ms [facility] [address] [place], [address], 03/03/2025 16:15:37 Result Notes None recorded. 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 Rika Stanton, SERJIO null, [facility] 2 11:04:47 History of parathyr oidectom y 21585763992 9103 Active 2021 Viridiana English LPN null, [facility] 2 09:33:38 Atrial prematur e complex 464617834 Active 2022 ENEDELIA Diamond [address] [place] [address], [address] , [facility] 3 18:01:23 Osteopen ia 520855976 Active 2023 ENEDELIA Diamond [address] [place] [address], [address] , [facility] 4 11:43:47 Hyperten sive disorder 19230867 Active 2023 ENEDELIA Diamond [address] [place] [address], [address] , [facility] 4 11:45:00 Abnormal findings on diagnost ic imaging of breast 138127196 Completed 10/11/2016 Lynne Thomas NP [address] [place], [address] , [facility] 6 15:07:23 Essentia l hyperten shelby 85118074 Completed 200208/05/2012 Not Available [facility] 3 03:01:56 Gastroes ophageal reflux disease 578159674 Active 2004 Not Available [facility] 3 03:01:56 Non-toxi c uninodul ar goiter 927122108 Completed 200502/27/2021 Mimi Velazquez MD [address] [place] [address], [address] , [facility] 1 11:22:23 Nausea and vomiting 94623739 Completed 200408/05/2012 Not Available [facility] 3 03:01:56 Thyroidi tis 39535796 Completed 200508/05/2012 Not Available [facility] 3 03:01:56 Hypoglyc emia 755550246 Completed 200408/05/2012 Not Available [facility] 3 03:01:56 Acute non-supp urative serous otitis media 402221828 Completed 200208/05/2012 Not Available [facility] 3 03:01:56 Benign essentia l hyperten shelby 1673597 Completed 200008/05/2012 Not Available [facility] 3 03:01:56 Enthesop athy of hip region 67909337 Completed 200008/05/2012 Not Available [facility] 3 03:01:56 Left lower quadrant pain 065152816 Completed 200308/05/2012 Not Available [facility] 3 03:01:56 Plantar fasciiti s 637686752 Completed 200108/05/2012 Not Available [facility] 3 03:01:56 Dizzines s 727234923 Completed 200408/05/2012 Not Available [facility] 3 03:01:56 Menstrua tion finding Completed 200308/05/2012 Not Available [facility] 3 03:01:56 Pure hypercho lesterol emia 940018872 Completed 200410/11/2016 Lynne Thomas NP [address] [place] [address], [address] , [facility] 6 15:07:20 Obesity 371008854 Completed 200208/05/2012 Not Available [facility] 3 03:01:56 Dysfunct ional uterine bleeding Completed 200308/05/2012 Not Available [facility] 3 03:01:56 Breast lump 51806901 Completed 200308/05/2012 Not Available [facility] 3 03:01:56 Abdomina l pain 85045172 Completed 200308/05/2012 Not Available [facility] 3 03:01:56 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 Completed 08/05/2012 Not Available [facility] 3 03:01:56 Localize d adiposit y 379083725 Completed 200208/05/2012 Not Available [facility] 3 03:01:56 Irregula r periods 25278436 Completed 200308/05/2012 Not Available [facility] 3 03:01:56 Acute maxillar y sinusiti s 65262314 Completed 200408/05/2012 Not Available [facility] 3 03:01:56 Acute conjunct ivitis 78211798 Completed 200508/05/2012 Not Available [facility] 3 03:01:56 Abnormal cervical Papanico laou smear with human papillom avirus deoxyrib onucleic acid detected 144679256 Completed 200108/05/2012 Not Available [facility] 3 03:01:56 Generali zed abdomina l pain 374281543 Completed 200308/05/2012 Not Available [facility] 3 03:01:56 Elevated blood-pr essure reading without diagnosi s of hyperten shelby 421342641 Completed 200203/05/2013 Not Available [facility] 3 03:01:56 Goiter 6413727 Completed 200408/05/2012 Not Available [facility] 3 03:01:56 Blephari tis 39441240 Completed 200508/05/2012 Not Available [facility] 3 03:01:56 Pain in limb 86168133 Completed 200508/05/2012 Not Available [facility] 3 03:01:56 Malaise and fatigue 142011053 Completed 200408/05/2012 Not Available [facility] 3 03:01:56 Heartbur n 43947885 Completed 200308/05/2012 Not Available [facility] 3 03:01:56 Problem Notes None recorded. Procedures Surgical History Date Name Laterality Status Provider Name and Address Organization Details Recorded Time 12/02/19 38640: Therapeutic Exercise [place], [address], [facility] 12/02/2024 09:10:15 12/02/19 25 26854: Neuromuscular Re-Education completed NIC LOVE DPT [address] [place] [address], [address], [facility] 12/02/2024 09:10:16 12/02/19 25 Treatment and Advice completed NIC LOVE DPT [address] [place] [address], [address], [facility] 12/02/2024 09:29:02 11/22/19 25 29822: Therapeutic Exercise completed NIC LOVE DPT [address] [place] [address], [address], [facility] 11/22/2024 12:31:59 11/22/19 25 18664: Neuromuscular Re-Education completed [place], [address], [facility] 11/22/2024 13:00:36 11/22/19 25 Treatment and Advice completed NIC LOVE DPT [address] [place] [address], [address], [facility] 11/22/2024 13:00:27 10/25/19 25 30126: Therapeutic Exercise completed NIC LOVE DPT [address] [place] [address], [address], [facility] 10/25/2024 11:40:11 10/25/19 25 40203: Manual Therapy [place], [address], [facility] 10/25/2024 12:22:23 10/25/19 25 Treatment and Advice completed NIC LOVE DPT [address] [place], [address], [facility] 10/25/2024 12:22:17 10/05/20 24 16803: Therapeutic Exercise completed NIC LOVE DPT [address] [place], [address], [facility] 10/05/2024 12:08:01 10/05/20 24 30086: Manual Therapy completed NIC LOVE DPT [address] [place], [address], [facility] 10/05/2024 12:08:23 10/05/20 24 Treatment and Advice completed NIC LOVE DPT [address] [place], [address], [facility] 10/05/2024 12:07:52 09/28/20 24 39185: Therapeutic Exercise completed NIC LOVE DPT [address] [place], [address], [facility] 09/28/2024 13:00:06 09/28/20 24 Treatment and Advice completed NIC LOVE DPT [address] [place], [address], [facility] 09/28/2024 12:59:56 09/28/20 Medicare Wellness Visit completed ZAIRA Parks [facility] 09/27/2024 13:52:24 09/28/20 24 Medicare Annual Wellness Visit completed Connie Horta MA [facility] 09/28/2024 11:33:41 09/14/20 24 Smoking Cessation Counselling completed NIC LOVE DPT [address] [place], [address], [facility] 09/14/2024 11:22:47 09/14/20 24 Physical Activity Counselling completed NIC LOVE DPT [address] [place], [address], [facility] 09/14/2024 11:16:35 09/14/20 24 15611: PT Eval Low Complexity completed NIC LOVE, DPT [address] [place], [address], [facility] 09/14/2024 11:16:35 09/14/20 24 Treatment and Advice completed NIC LOVE, DPT [address] [place], [address], [facility] 09/14/2024 17:12:41 02/08/20 22 94387: Therapeutic Exercise completed Marycruz Rasmussen, PT [address] [place], [address], [facility] 02/07/2022 12:06:56 02/08/20 Treatment and Advice completed Marycruz Rasmussen, PT [address] [place], [address], [facility] 02/07/2022 12:00:20 01/30/20 28779: Therapeutic Exercise completed Marycruz Rasmussen, PT [address] [place], [address], [facility] 01/29/2022 10:36:13 01/30/20 22 Treatment and Advice completed Marycruz Rasmussen, PT [address] [place], [address], [facility] 01/29/2022 10:35:29 01/25/20 00730: Therapeutic Exercise completed Marycruz Rasmussen, PT [address] [place], [address], [facility] 01/24/2022 11:08:47 01/25/20 Treatment and Advice completed Marycruz Rasmussen, PT [address] [place], [address], [facility] 01/24/2022 11:39:08 01/18/20 22 50440: Therapeutic Exercise completed Marycruz Rasmussen, PT [address] [place], [address], [facility] 01/17/2022 12:29:59 01/18/20 22 Treatment and Advice completed Marycruz Rasmussen, PT [address] [place], [address], [facility] 01/17/2022 11:34:47 01/08/20 22 Physical Activity Counselling completed Marycruz Rasmussen, PT [address] [place], [address], [facility] 01/07/2022 13:21:23 01/08/20 22 71177: PT Eval Low Complexity completed Marycruz Rasmussen, PT [address] [place], [address], [facility] 01/07/2022 13:21:28 01/08/20 22 Treatment and Advice completed Marycruz Rasmussen, PT [address] [place], [address], [facility] 01/07/2022 13:23:50 04/30/20 21 Thyroid Biopsy completed Mimi Velazquez MD [address] [place] [address], [address], [facility] 04/30/2021 08:32:28 08/25/20 20 prevention-cardio vascular risk reduction counseling completed Simin Jay MA [facility] 08/24/2020 16:35:51 08/25/20 20 prevention-annual alcohol misuse screening completed Simin Jay MA [facility] 08/24/2020 16:35:51 08/13/20 19 POC Urinalysis Testing completed Annika Rushing [facility] 08/13/2019 17:13:31 05/28/20 19 POC Urinalysis Testing completed Shelbi Ashton [facility] 05/28/2019 12:36:34 01/03/20 18 POC Flu Testing completed Norma Barber [facility] 01/02/2018 11:06:08 02/18/20 12 Wound Care completed Gloria Almanzar LPN [facility] 02/18/2012 17:26:30 Imaging Results None recorded. Procedure Notes None recorded. Medical Equipment None Reported. Allergies Allergen ID Allergen Name Allergen Category Reaction Reaction Severity Criticality Documentation Date Start Date Code Code System Note Provider Name and Address Organization Details Recorded Time 185691 Iodinated contrast media (substanc e) medicatio n hives Not available Not available 12/20/2020 19565 2003 SNOMED Mimi Velazquez MD [address] [facility] [place], [address], [facility] 1 07:36:55 Medications Name Sig Start Date Stop [...] DateTime 12/28/2024 150.88 cm Anabel Murphy MA [facility] 12/28/2024 13:50:07 Social History Question Answer Notes LastModified by Organizat ion Details LastModified Time Tobacco Smoking Status Never Smoker Not Available [facility] 08/22/2020 03:15:14 Do You Have An Advance Directive? No Form Given 04/06/10 [id number] Information not available 08/22/2020 Do You Wear A Helmet When Biking? No N/a Information not available 08/29/2021 What Is Your Level Of Caffeine Consumption? Occasional Rarely Information not available 09/22/2023 How Much Tobacco Do You Chew? None [id number] Information not available 08/22/2020 What Type Of Diet Are You Following? REGULAR Information not available 09/05/2022 Which Illicit Or Recreational Drugs Have You Used? None [id number] Information not available 08/22/2020 Education 4 Year College [employer] In[employer]io n not available 10/06/2015 Have There Been Any Changes To Your Family Or Social Situation? No Information not available 09/22/2023 How Many Days In The Past Year Have You Had A Heavy Drinking Consumption (4+ Female, 5+ Male)? 0 Information not available 08/06/2013 Are There Any Guns Present In Your Home? No [id number] Information not available 08/22/2020 Do You Use [...] How Many Children Do You Have? 2 [id number] Information not available 08/22/2020 What Is Your [...] To Smoke? No Information not available 08/29/2021 How Much Tobacco Do You Smoke? No [id number] Information not available 08/22/2020 What Types Of Sporting Activities Do You Participate In? None [id number] Information not available 08/22/2020 General Stress Level Medium Information not available 08/29/2021 Do You Use Sunscreen Routinely? Yes Information not available 08/29/2021 How Many Years Have You Smoked Tobacco? 0 [id number] Information not available 08/22/2020 How Many Days In The Past Year Have You Consumed 4 Or More Drinks? 0 Information not available 09/28/2024 Sex: Female Functional Status Question Answer Note LastModified by Organizat ion Details LastModified Time Do you use any illicit or recreational drugs? No Information not available 09/05/2022 Do you or have you ever used any other forms of tobacco or nicotine? No [email or web address] Information not available 08/27/2024 What is your level of alcohol consumption? Occasional 1 glass a few times per week Information not available 09/22/2023 Do you or have you ever used smokeless tobacco? 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 Never used electronic cigarettes [id number] Information not available 08/22/2020 What is your exercise level? Occasional walking [...] Recorded Time Tdap 1 completed Not Available [facility] 11/06/2019 02:15:42 Td(adult) unspecified formulation 6 completed Not Available [facility] 02/14/2023 06:10:11 Influenza, split virus, trivalent, PF 3 completed Not Available [facility] 11/06/2019 02:33:40 Influenza, split virus, quadrivalent, preservative 4 completed Not Available [facility] 02/14/2023 06:10:10 Influenza, split virus, quadrivalent, preservative 6 completed Not Available [facility] 02/14/2023 06:10:10 Influenza, split virus, quadrivalent, preservative 7 completed Not Available [facility] 02/14/2023 06:10:10 influenza, unspecified formulation 1 completed Not Available [facility] 02/14/2023 06:10:11 Influenza, split virus, quadrivalent, preservative 9 completed Not Available [facility] 02/14/2023 06:10:10 Td (adult), 2 Lf tetanus toxoid, preservative free, adsorbed 1 [facility] 16:53:26 influenza, unspecified formulation 0 completed Not Available [facility] 02/14/2023 06:10:11 COVID-19, mRNA, LNP-S, PF, 30 mcg/0.3 mL dose 1 completed Not Available [facility] 02/14/2023 06:10:10 COVID-19, mRNA, LNP-S, PF, 30 mcg/0.3 mL dose 1 completed Not Available [facility] 02/14/2023 06:10:10 Influenza, split virus, quadrivalent, PF 2 completed Lynne Thomas NP [address] [place] [address], [address], [facility] 09/05/2022 15:32:56 Influenza, high-dose, quadrivalent, PF 3 completed ENEDELIA Diamond [address] [place] [address], [address], [facility] 09/22/2023 11:31:33 Influenza, split virus, trivalent, PF 4 completed July Nino MD [address] [place] [address], [address], [facility] 08/27/2024 11:04:46 Influenza, split virus, quadrivalent, preservative 1 completed Not Available [facility] 02/14/2023 06:10:10 zoster recombinant 0 completed Not Available [facility] 02/14/2023 06:10:10 zoster recombinant 9 completed Not Available [facility] 02/14/2023 06:10:10 COVID-19, mRNA, LNP-S, PF, 30 mcg/0.3 mL dose 1 completed Not Available [facility] 02/14/2023 06:10:10 Past Encounters Encounter ID Performer Location Encounter Start Date Encounter Closed Date Diagnosis/Indication Diagnosis SNOMED-CT Code Diagnosis ICD10 Code Diagnosis Note [id number] Reinier Crenshaw i, PT Physical Therapy, [facility] [address] [place] [address] 02/13/2001 13:30:00 11/09/2008 02:02:29 [id number] Frances Anthony [facility], OFFICE [address] [place] [address] 07/13/2001 10:15:00 11/09/2008 02:02:29 [id number] Frances Anthony [facility], OFFICE [address] [place] [address] 10/06/2001 14:30:00 11/09/2008 02:02:29 [id number] Frances Anthony [facility], OFFICE [address] [place] [address] 01/15/2002 13:00:00 11/09/2008 02:02:29 [id number] Reinier Crenshaw i, PT Physical Therapy, [address] [address] 01/18/2002 14:00:00 11/09/2008 02:02:29 [id number] Frances Anthony [facility], OFFICE [address] [place] [address] 11/19/2002 11:17:44 11/09/2008 02:02:29 [id number] [facility] - [facility] [address] [place] [address] 01/24/2003 13:22:46 11/09/2008 02:02:29 [id number] SHAHRZAD [place] , [facility], OFFICE [address] [place] [address] 01/25/2003 09:07:35 11/09/2008 02:02:29 [id number] Frances Anthony [facility], OFFICE [address] [place] [address] 03/30/2003 13:21:01 11/09/2008 02:02:29 [id number] [facility] - [facility] [address] [place] [address] 05/10/2003 09:17:09 11/09/2008 02:02:29 [id number] MD BJORN Holguni, [facility], OFFICE [address] [place] [address] 05/21/2003 14:59:06 11/09/2008 02:02:29 [id number] [facility] , [facility] [address] [place] [address] 07/14/2003 10:07:26 07/14/2003 17:23:44 [id number] [facility] Radiology , [facility] [address] [place] [address] 07/14/2003 00:00:00 11/09/2008 02:02:29 [id number] Martina Lamas NP [facility], OFFICE [address] [place] [address] 02/14/2004 13:34:21 02/14/2004 17:28:29 [id number] [facility] - [address] [address] 02/13/2004 14:37:06 02/13/2004 14:37:15 [id number] [facility] 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 , [facility] [address] [place] [address] 02/24/2004 09:47:17 11/09/2008 02:02:29 [id number] Frances Anthony, [facility], OFFICE [address] [place] [address] 03/13/2004 10:50:55 03/13/2004 14:17:02 [id number] Frances Anthony, [facility], OFFICE [address] [place] [address] 04/04/2004 11:49:50 04/04/2004 15:37:12 [id number] [facility] - [address] [address] 04/04/2004 16:32:48 04/04/2004 16:33:00 [id number] Ameena Ewing NP , [facility], OFFICE [address] [place] [address] 08/17/2004 14:30:16 08/19/2004 10:29:03 [id number] [facility] Rad[facility] , [facility] [address] [place] [address] 08/24/2004 13:29:26 08/27/2004 14:08:20 [id number] [facility] - [address] [address] 10/15/2004 13:30:52 10/15/2004 13:31:16 [id number] Ameena Ewing NP , [facility], OFFICE [address] [place] [address] 11/02/2004 13:57:17 11/02/2004 17:15:40 [id number] [facility] - [address] [address] 12/26/2004 15:58:39 12/26/2004 15:58:55 [id number] SHAHRZAD Holland , [facility], OFFICE [address] [place] [address] 01/31/2005 11:33:35 11/09/2008 02:02:29 [id number] Frances Anthony , [facility], [address]ICE [address] [place] [address] 02/21/2005 09:32:33 02/21/2005 14:09:25 [id number] [facility] - [facility] [address] [place] [address] 02/25/2005 08:35:02 02/25/2005 08:35:06 [id number] Frances Anthony , [facility], OFFICE [address] [place] [address] 03/04/2005 14:33:40 03/05/2005 09:19:30 [id number] [facility] - [address] [address] 05/17/2005 13:21:40 05/17/2005 13:22:16 [id number] Frances Anthony [facility], OFFICE [address] [place] [address] 05/23/2005 11:23:40 11/09/2008 02:02:29 [id number] Janie Acosta M.D . , [facility], [address] [place] [address] 08/22/2005 11:36:09 11/09/2008 02:02:29 [id number] [facility] Radiology , [facility] [address] [place] [address] 09/10/2005 11:47:07 11/09/2008 02:02:29 [id number] MD BJORN Mckenzie, [facility], [address]ICE [address] [place] [address] 12/21/2005 14:52:06 12/22/2005 08:59:43 [id number] Ameena Ewing NP , [facility], OFFICE [address] [place] [address] 12/26/2005 08:42:45 12/26/2005 10:13:32 [id number] [facility] - [address] [address] 12/26/2005 08:35:37 12/26/2005 08:35:49 [id number] Deon Aremndariz OD [facility], [facility] [address] [place] [address] 12/31/2005 08:41:49 11/09/2008 02:02:29 [id number] SHAHRZAD Washington, [facility], OFFICE [address] [place] [address] 01/07/2006 10:40:38 01/10/2006 10:38:25 [id number] SHAHRZAD Washington, [facility], OFFICE [address] [place] [address] 01/07/2006 10:40:38 01/10/2006 10:38:25 [id number] [facility] 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 , [facility] [address] [place] [address] 01/10/2006 13:29:40 01/11/2006 11:03:00 [id number] Martina Ramirez MD , [facility], OFFICE [address] [place] [address] 09/12/2006 10:15:29 09/15/2006 08:46:22 [id number] [facility] Radiology , [facility] [address] [place] [address] 10/07/2006 11:38:02 10/08/2006 09:18:10 [id number] Frances Anthony, [facility], OFFICE [address] [place] [address] 12/09/2006 14:33:09 12/09/2006 14:33:38 [id number] [facility] , [facility] [address] [place] [address] 12/08/2007 09:39:18 12/09/2007 09:02:56 [id number] [facility] , [facility] [address] [place] [address] 07/25/2009 13:35:46 07/28/2009 10:05:35 [id number] YAEL Zapata, [facility], OFFICE [address] [place] [address] 04/06/2010 11:36:30 04/09/2010 10:27:34 [id number] [facility] , [address] [address] 08/28/2010 09:31:50 09/03/2010 08:20:40 [id number] YAEL Zapata, [facility], OFFICE [address] [place] [address] 07/26/2011 14:22:31 07/26/2011 15:18:47 [id number] [facility] , [address] [address] 12/24/2011 09:01:03 12/26/2011 08:52:46 [id number] SAHRA Tovar, [facility], [address]ICE [address] [place] [address] 02/18/2012 16:19:35 02/18/2012 17:22:48 [id number] ENEDELIA Leigh, [facility], [address] [place] [address] 02/25/2012 10:07:37 02/25/2012 10:48:08 [id number] YAEL Zapata, [facility], [address]ICE [address] [place] [address] 6 08/04/2012 14:25:34 08/04/2012 15:29:08 [id number] ENEDELIA Pantoja-SUMI MILAN, [facility], [address]ICE [address] [place] [address] 06/01/2013 16:45:07 06/02/2013 12:25:39 Vascular disorder [id number] pt presents for evaluation of chronic venous ulceration which flared up within the last 48 hours. historical ly pt responded to keflex, but was told she may require bactrim next time. pt took 1 DS bactrim and noticed significan t improvemen t. Peripheral venous insufficiency [id number] Continue with support stockings. [id number] YAEL Zapata, [facility], OFFICE [address] [place] [address] 08/06/2013 09:32:30 08/06/2013 10:13:04 Adult health examination [id number] see Risk Assessment and Lifestyle Change Counseling section above Counseling [id number] Influenza vaccine needed [id number] YAEL Zapata, [facility], [address] [place] [address] 09/21/2013 14:34:06 09/21/2013 15:20:20 Sinusitis 76314496 Pt enc to use claudine pot, inc fluids and anti-infla mmatories. Use Afrin or sudafed before flight. Rx abx to take only with persistent or increased sx. while traveling. Probiotics [id number] YAEL Zapata, [facility], [address]ICE [address] [place] [address] 05/24/2014 15:20:58 05/24/2014 16:10:32 Abdominal pain 28395727 will check labs consider abd u/s call with increased sx [id number] MD BJORN Escobar, [facility], [address] [place] [address] 01/27/2015 15:15:06 01/30/2015 13:02:21 Sinusitis 64937678 [id number] MD BJORN Escobar, [facility], [address] [place] [address] 07/04/2015 16:42:13 07/04/2015 17:35:20 Paresthesia 88125850 [id number] YAEL Zapata, [facility], [address] [place] [address] 10/06/2015 14:35:55 10/06/2015 15:32:47 Adult health examination 047503485 Z00.00 see Risk Assessment and Lifestyle Change Counseling section above PT prefers qoyr mammo. Counseling 944500678 Z71 .9 Screening mammography 24 397301 Z12.31 [id number] Britany Enamorado D.O. , [facility], [address] [place] [address] 11/04/2015 10:03:19 11/04/2015 10:32:03 Sinusitis 01320695 J32.9 push fluids, humidify air. use probiotics while on anibiotics . follow up if symptoms persist or worsen. [id number] Lynne Thomas NP , [facility], [address] [place] [address] 08/09/2016 13:24:11 08/09/2016 14:00:34 Palpitations 54611471 R00.2 discussed vagus nerve/PVCs assoc with eating and stress.Dis cussed smaller meals, weight loss, stress mgmt.repor t any chest pain with exertion, any other concerns. [id number] TIFFANY Pantoja, [facility], [address] [place] [address] 08/31/2016 09:09:12 08/31/2016 11:16:13 Cough 91192066 R05 preliminar y read suggests pneumonia. Pneumonia 205295272 J18. 9 exam consistent w/ RLL pneumonia, pt advised to follow up with pcp within week, call for worsening symptoms or failure to resolve. [id number] TIFFANY Pantoja [facility], [address] [place] [address] 09/06/2016 13:56:24 09/09/2016 11:27:05 Pneumonia 910066601 J18.9 respirator y exam sig improved, pt feels much better. f/up x-ray at 6 weeks. [id number] Lynne Thomas NP , [facility], [address] [place] [address] 10/11/2016 14:23:59 10/15/2016 11:06:58 Adult health examination 049279888 Z00.00 see Risk Assessment and Lifestyle Change Counseling section above Counseling 906166262 Z71 .9 Acute sinusitis 59609897 J01.90 Pt is provided Rx but does not intend to fill it unless sx progress over holidays -fever, purulent nasal discharge. [id number] YAEL Zapata, [facility], [address] [place] [address] 11/22/2016 07:23:49 11/22/2016 08:01:08 Fatigue 37727746 R53.83 will check labs, f/u per results Gastroesop hageal reflux disease 280716813 K21.9 [id number] YAEL Zapata, [facility], [address] [place] [address] 12/24/2016 09:25:32 12/24/2016 09:54:21 Gastroesophageal reflux disease 269785111 K21.9 f/u with GI as planned.GE RD precaution s Benign ess ential hypertension 5765507 I10 Blood pressure at goal Hyperthyroidism 61207514 E05.90 recheck labs 3mos Vitamin D deficiency 347 93186 E55.9 pt refuses high dose Vit D replacemen t - will take 4000IU daily and repeat 3mos. History of calculus of kidney 369900307 Z87.442 report any recurrence . [id number] Leobardo Quintero MD , [facility], [address] [place] [address] 09/05/2017 16:05:51 09/05/2017 16:40:34 External hordeolum 3730023 H00.019 continue with warm compresses , monitor. [id number] Lynne Thomas NP , [facility], [address] [place] [address] 10/17/2017 10:34:18 10/17/2017 11:40:41 Adult health examination 303774079 Z00.00 see Risk Assessment and Lifestyle Change Counseling section above Palpitations 51065102 R0 0.2 discussed vagus nerve/PVCs assoc with eating and stress.Dis cussed smaller meals, weight loss, stress mgmt.repor t any chest pain with exertion, any other concerns. Tinea pedis 2411878 B35. 3 [id number] MD BJORN Cleaning, [facility], [address] [place] [address] 01/02/2018 10:35:54 01/05/2018 08:55:06 Acute upper respiratory infection 86525008 J06.9 Educated patient that URI is a [...] resolve in 2-4 weeks. Cough with fever 3676538 03 R05 [id number] MD BJORN Villalta, [facility], [address] [place] [address] 01/05/2018 15:49:27 01/05/2018 16:42:45 Cough 25720870 R05 persistent .CXR 01/02 negwill tx for CAP due to persistenc e of sxs and malaisetri al of bronchodil atorf/u if sxs persisting > 1wk, sooner for fever or worsening sxs. [id number] YAEL Zapata, [facility], [address] [place] [address] 10/23/2018 10:29:24 10/23/2018 14:49:29 Adult health examination 826112206 Z00.00 see Risk Assessment and Lifestyle Change Counseling section above Depression screening 171 600710 Z13.89 depression screening tool administer ed, entered into emr, scored and discussed, time greater than 7.5 minutes Screening mammography 24 155645 Z12.31 Cough 73040463 R05 Vitamin D deficiency 347 53059 E55.9 sporadic use - reassured re safety of higher dose vitamin D - [id number] YAEL Zapata, [facility], [address] [place] [address] 03/02/2019 09:27:55 03/03/2019 09:33:15 Palpitations 37196989 R00.2 Have holter monitor placed today. CN will consult with Endo re TSH results and sx. [id number] YAEL Zapata, [facility], [address] [place] [address] 05/28/2019 12:31:11 05/28/2019 13:00:28 Increased frequency of urination 438032514 R35.0 no evidence of UTI but culture sent Pain in pelvis 13548919 R10.2 Will check labs - exam reassuring . Advised re urgent care on weekends. 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 if symptoms worse rtc [id number] Lynne Thomas NP , [facility], [address] [place] [address] 01/11/2020 08:10:27 01/19/2020 14:23:20 Benign essential hypertension 6493777 I10 Blood pressure not at goal - start HCTZ = has taken in past, normal CMP 07/2019. F/u in one week via portal with readings - call sooner prn. [id number] Lynne Thomas NP , [facility], [address] [place] [address] 01/14/2020 13:34:29 01/18/2020 13:31:00 Acute sinusitis 10460907 J01.90 [id number] Bradley Vasquez MD , [facility], [address] [place] [address] 04/03/2020 09:28:04 04/06/2020 13:25:30 Acute sinusitis 83355698 J01.90 Encourage force fluids, steam inhalation as needed, adequate rest. Take antibiotic s as prescribed , probiotics while on the antibiotic and follow up if not improving or symptoms worsening. Enc trial of saline nasal spray daily to help prevent recurrence s. Benign ess ential hypertension 4573591 I10 Recently started on meds for this. Doesn't check BP at home - too hard to use cuff herself. Enc. healthy diet/exerc ise habits and someone will contact her to schedule mobile blood draw. [id number] Lynne Thomas NP , [facility], [address] [place] [address] 08/25/2020 09:59:19 08/30/2020 11:14:50 Adult health examination 402184481 Z00.00 see Risk Assessment and Lifestyle Change Counseling section above Depression screening 171 692462 Z13.89 depression screening tool administer ed, entered into emr, scored and discussed, time greater than 7.5 minutes Screening for alcohol abuse 698690890 Z13.39 Counseling 472855991 Z71 .89 including cardiovasc ular counseling - lipids excellent, could improve exercise and diet matt during stressful time, stress mgmt -declines counseling , followed by cardiology currently Screening mammography 24 048427 Z12.31 Atrial tachycardia 68081 6006 I47.1 will recheck thyroid labs Anxiety state 666258383 F41.1 suggest call [facility] for help with mother - need to protect her own life, marriage, etc. - balance. [id number] Mimi Velazquez MD Endocrino logy, [address] [address] 12/20/2020 07:04:55 12/20/2020 08:21:40 Subclinical hyperthyroidism 366117432 E05.90 -baseline labs -please check portal for results -consider thyroid uptake and scan if test for Graves disease (TSI) is negative -consider treatment with methimazol e after testing -follow up 3mo or next available Palpitations 73878604 R0 0.2 Fatigue 53469762 R53.83 [id number] Thomas Hightower MD , [facility], [address] [place] [address] 01/17/2021 09:27:37 01/18/2021 09:09:02 Non-toxic uninodular goiter 909051117 E04.1 consult with endo re if OK for thyroid uptake in light of IVP dye allergy Dr Velazquez spoke with pt and arranged pre-med with benadryl before thyroid uptake scan Screening mammography 24 611433 Z12.31 [id number] Thomas Hightower MD , [facility], [address] [place] [address] 02/22/2021 10:35:27 02/23/2021 16:33:30 Left lower quadrant pain 395038322 R10.32 will obtain labs - pt prefers to wait for ersults and then discuss abx - prefers to see if it will resolve however with some sx worsening, I discussed the urgency of treatment. She will get labs drawn today and I will f/u with results. Call sooner or go to ER with vomiting, fever, inc pain. 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 Suspect [...] to plan. History of calculus of kidney 688786328 Z87.442 5 mm kidney stone in past. [id number] Mimi Velazquez MD Endocrino logromi, [address] [place] [address] 04/30/2021 07:27:13 04/30/2021 18:58:24 Toxic nodular goiter 32647827 E05.20 -biopsied left lower thyroid 4cm nodule today -methimazo le 5mg tabs, 1 tab by mouth every other day from daily -labsmonth ly until stable -consider surgery to remove if symptoms worsen ie stuck in throat food [id number] Mimi Velazquez MD Endocrino log, [facility] [address] [place] [address] 05/09/2021 14:26:08 05/09/2021 19:07:43 Toxic nodular goiter 81576523 E05.20 04/30/21 fine needle biopsy of the left lower thyroid 4cm nodule suggests a benign thyroid nodule. -methimazo le 5mg tabs, 1 tab by mouth every other day-labs every 2 month until stable -consider surgery to remove left toxic nodule [id number] Thomsa Hightower MD , [facility], [address] [place] [address] 08/29/2021 15:50:47 08/29/2021 16:52:01 Adult health examination 346568342 Z00.00 see Risk Assessment and Lifestyle Change Counseling section above Depression screening 171 471940 Z13.31 depression screening tool administer ed, entered into emr, scored and discussed, time greater than 7.5 minutes Screening for alcohol abuse 499471842 Z13.39 Counseling 029983080 Z71 .89 including cardiovasc ular counseling - lipids excellent, could improve exercise and diet matt during stressful time, stress mgmt -declines counseling , followed by cardiology currently Gastroesop hageal reflux disease 438396397 K21.9 f/u with GI as planned.GE RD precaution s Active or passive immunization 446081622 Z23 Supraventr icular tachycardia 4938584 I47.1 stable Submammary intertrigo 24 2049445 L30.4 Toxic nodular goiter 577 37605 E05.20 surgeru sched in October. Feeling well VSS [id number] Thomas Hightower MD , [facility], [address] [place] [address] 12/27/2021 10:54:26 01/02/2022 11:39:55 Pain of right knee joint 5839332694 12764 M25.561 referral to PT, might benefit from cortisone injection Pain in ri ght lower limb 300050186 M79.604 will r/o DVT - low suspicion. [id number] Mimi Velazquez MD Endocrino logy, [facility] [address] [place] [address] 01/02/2022 11:29:27 01/02/2022 12:08:02 Toxic nodular goiter 23095088 E05.20 -improved post lobectomy- check tsh annually or as needed History of parathyroidectomy 0257809154 37115 Z90.89 -reassess parathyroi d hormone due to past kidney stone and parathyroi d adenoma History of calculus of kidney 076758082 Z87.547 [id number] Marycruz hamilton, PT Physical Therapy, [address] [address] 01/07/2022 11:35:56 01/07/2022 16:16:03 Pain of right knee joint 3049122882 68675 M25.771 [id number] Marycruz hamilton, PT Physical Therapy, [address] [address] 01/17/2022 11:08:03 01/17/2022 12:32:20 Pain of right knee joint 2602215362 37170 M25.822 [id number] Marycruz hamilton, PT Physical Therapy, [address] [address] 01/24/2022 11:06:25 01/24/2022 11:48:09 Pain of right knee joint 7545797220 44210 M25.976 [id number] Marycruz hamilton, PT Physical Therapy, [address] [address] 01/29/2022 10:08:51 01/29/2022 16:15:33 Pain of right knee joint 6915188593 81055 M25.139 [id number] Marycruz hamilton, PT Physical Therapy, [address] [address] 02/07/2022 11:35:07 02/07/2022 12:19:58 Pain of right knee joint 6390046454 19046 M25.128 [id number] Marycruz hamilton, PT Physical Therapy, [address] [address] 02/14/2022 11:34:03 02/14/2022 13:50:35 Pain of right knee joint 4640328626 57202 M25.037 [id number] Marycruz hamilton, PT Physical Therapy, [facility] [address] [place] [address] 03/06/2022 11:31:51 03/06/2022 15:42:07 Pain of right knee joint 7829775555 80526 M25.496 [id number] Thomas Hightower MD FP, [facility], [address] [place] [address] 09/05/2022 10:16:39 09/05/2022 11:06:43 Supraventricular tachycardia 3262443 I47.1 stable Adult heal th examination 745492897 Z00.00 see Risk Assessment and Lifestyle Change Counseling section above Depression screening 171 122799 Z13.31 depression screening tool administer ed, entered into emr, scored and discussed, time greater than 7.5 minutes Screening for alcohol abuse 622805971 Z13.39 Counseling 963148526 Z71 .89 including cardiovasc ular counseling - lipids excellent, could improve exercise and diet matt during stressful time, stress mgmt -declines counseling , followed by cardiology currently Active or passive immunization 909774053 Z23 Mild inter mittent asthma 586108771 J45.20 stable Screening for osteoporosis 360806136 Z13.820 Screening mammography 24 573902 Z12.31 History of parathyroidectomy 8489845804 43618 Z90.89 followed by endo [id number] Mimi Velazquez MD Endocrino logy, [address] [address] 08/29/2022 11:43:17 08/30/2022 12:42:32 Toxic nodular goiter 03325167 E05.20 -improved post lobectomy- check tsh annually or as needed History of calculus of kidney 071202028 Z87.442 History of parathyroidectomy 5110192903 74896 Z90.89 -reassess parathyroi d hormone due to past kidney stone and parathyroi d adenoma Secondary hyperparathyroidism 83129217 E21.1 -try to add at least one high calcium food/drink daily-calc ium citrate 200mg by mouth 2x/d-reche ck in 2 weeks pth [id number] Thomas Hightower MD , [facility], [address] [place] [address] 03/06/2023 11:10:08 03/06/2023 14:32:50 Supraventricular tachycardia 4248012 I47.1 stable Toxic nodular goiter 577 09045 E05.20 post surg partial thyroidect omyeuthyro id Secondary hyperparathyroidism 81027597 E21.1 followed by endo [id number] Kassandra Murphy MD , [facility], [address] [place] [address] 07/15/2023 15:34:13 07/15/2023 16:23:25 Dysuria 56343724 R30.0 Patient w/ vaginal pressure and itching around urethraUA wnlpelvic exam wnlobtaine d vaginal swab for yeast, BV, trich, mycoplasma discussed possible other etiologies , low suspicion for kidney stone but pt does have hx. could be growing fibroid or cyst, or vaginal prolapse. advised pt to f/u with dr hernandez if sx persist and swab wnl. Vaginal irritation 37372 6004 N89.8 see above [id number] Kassandra Murphy MD , [facility], [address] [place] [address] 07/23/2023 15:35:05 07/23/2023 17:48:03 Left lower quadrant pain [id number] R10.32 pt w/ LLQ discomfort , bloating, nausea, vaginal pressure ongoing for 2.5 weeksdif dx includes vaginal prolapse, diverticul itis, two way radio installer malignancy .notably pt has been doing optavia meal plan for past 5 mos, mostly soy-based pre-made mealsadvis ed pt to try clear liquid diet for 2 days and will plan to order CT scan for assessment pt to f/u if sx not improved, urgent care hours reviewed. pt to seek care in ed if acutely worsening pain, fever, vomiting. [id number] Thomas Hightower MD , [facility], [address] [place] [address] 08/15/2023 14:23:55 08/15/2023 15:13:55 Acute sinusitis 15893370 J01.90 - Sxs most consistent w viral [...] not improving or for any other concerns [id number] Kassandra Murphy MD , [facility], [address] [place] [address] 09/22/2023 08:42:11 09/22/2023 17:27:02 Adult health examination 176021686 Z00.00 Depression screening 171 043828 Z13.31 depression screening tool administer ed Screening for alcohol abuse 468073080 Z13.39 Alcohol use screening tool administer ed Active or passive immunization 400399528 Z23 Supraventr icular tachycardia 4871396 I47.10 followed by cardiology , has annual holter monitorsst able on metoprolol requesting most recent cardiologi st notes Kidney stone 17266397 N2 0.0 3mm kidney stone noted on CT in denies any hematuria, flank pain, dysuria, abd painadvise d may pass on its own. if having sx advised pt to f/u to discuss pain medication and flomax to help pass stone Neoplasm o f uncertain behavior of skin 80671567 D48.5 1ida9el scabbed lesion overlying lumbar spineasymp tomatic but scabbed lesion persisting for a few monthsdisc ussed removal and shave biopsy ? AK vs SCC vs BCC. pt to schedule shave biopsy appt History of parathyroidectomy 2504050403 71319 Z90.89 hx parathyroi d adenoma and toxic nodular goiter, status post left thyroid lobectomy 10/31/21 [id number] Tamela Quick DO , [facility], [address] [place] [address] 12/14/2023 09:23:20 12/14/2023 10:02:34 Pharyngitis 337027786 J02.9 Patient presents for evaluation of sore throat that is consistent with URI. We will treat with: Discussed supportive measures. Follow up if not improving or with new symptoms, or any other concerns. Acute uppe r respiratory infection 74400171 J06.9 Educated patient that URI is a [...] or failure to resolve in 2-4 weeks. [id number] Tamela Quick DO , [facility], [address] [place] [address] 03/23/2024 09:37:21 03/24/2024 11:56:45 Atrial premature complex 055860930 I49.1 reviewed recent cardiology notePACs increasing over timeplan to meet cardiology in Jul and rpt holter and EKGpt minimally symptomati c from cardiac perspectiv e, rare palpitatio nsencourag ed regular exercise History of parathyroidectomy 5415165163 24285 Z90.89 hx parathyroi d adenoma and toxic nodular goiter, status post left thyroid lobectomy 10/31/21PTH wnl, stable since last year Epidermoid cyst of skin of back 947939673 L72.0 re-checked lesion on back, non inflamed cystno need to biopsy [id number] July Nino MD , [facility], [address] [place] [address] 08/27/2024 10:44:13 08/30/2024 12:34:38 Active or passive immunization 715275176 Z23 Pain of ri ght knee joint 3561290148 06162 M25.561 recurrent right knee pain? Lamar's cystaching pain in back, posterior, as well as medial and lateral joint lineslimit ed flexionmor e pain at rest than with activityde conditione d, over weight, no regular exercisewi ll check xray for lamar's cyst, arthritis, consider referral for injection tx afterwards start PTcontinue ibuprofens tart slow exercise routine Morbid obesity 925162828 E66.01 enc exercise routinesta rting slowconsid er the Y and getting in the waterf/u w PCP [id number] NIC LOVE DPT Physical Therapy, [facility] [address] [place] [address] 09/14/2024 16:28:15 09/15/2024 08:32:47 Pain of right knee joint 6063931708 87753 M25.561 [id number] Kassandra Murphy MD FP, [facility], [address] [place] [address] 09/28/2024 11:23:08 09/28/2024 12:18:27 Adult health examination 545156891 Z00.00 Depression screening 171 315861 Z13.31 depression screening tool administer ed Screening for alcohol abuse 386237527 Z13.39 Alcohol use screening tool administer ed Osteopenia 995100675 M85 .80 encouraged calcium supplement and weight bearing exerciseco ntinue w/ vit D supplement Hypertensive disorder 38 211622 I10 BP at goal taking HCTZ every other day and metoprolol daily Screening mammography 24 706133 Z12.31 Abrasion o f right cornea 7045292867 7251603 S05.01XA no change to visionno erythema of sclerasmal l area of fluorescei n stain uptake below iris under lower lidrx antibiotic dropsencou raged warm compresses and lubricatin g dropsf/u with optometris t if no improvemen t in 48 hrs on drops Pain of ri ght knee joint 0775123503 16294 M25.561 continue w/ PT and voltaren gel Atrial pre mature complex 877784307 I49.1 requested recent cardiology notept minimally symptomati c from cardiac perspectiv e, rare palpitatio nsencourag ed regular exercise [id number] INC LOVE DPT Physical Therapy, [facility] [address] [place] [address] 09/28/2024 12:23:15 09/28/2024 13:23:33 Pain of right knee joint 5200664887 33042 M25.561 [id number] NIC LOVE DPT Physical Therapy, [facility] [address] [place] [address] 10/05/2024 11:34:03 10/05/2024 12:35:23 Pain of right knee joint 7060035704 03416 M25.561 [id number] NIC LOVE DPT Physical Therapy, [address] [address] 10/25/2024 11:36:43 10/25/2024 14:12:07 Pain of right knee joint 6550001705 57691 M25.561 [id number] NIC LOVE DPT Physical Therapy, [address] [address] 11/22/2024 12:30:47 11/22/2024 13:26:34 Pain of right knee joint 7304546305 14861 M25.561 [id number] NIC LOVE DPT Physical Therapy, [address] [address] 12/02/2024 09:04:02 12/02/2024 12:44:06 Pain of right knee joint 8373391993 46863 M25.561 [id number] Benjie Evans MD Sports Medicine, [address] [address] 12/28/2024 13:47:18 01/13/2025 12:37:52 Pain of right knee joint 9974507102 11272 M25.561 Lilli is a 69-year-ol d female [...] in the future. Osteoarthr itis of knee 642282710 M17.11 Health Concerns Section Related Observation LastModified by Organization Detai ls LastModified Time None Recorded Concern Status LastModified by Organization Details LastModified Time None Recorded Advance Directives Directive N: form given 04/06/10 Payers Insurance Date Sequence Insurance Name Policy Number Policy Morocho Covered Member ID Morocho Member ID Guarantor Name 08/27/2024 1 UMR (PPO) [id number] Lilli Kelvin Koehlerl [id number] Lilli Koehlerl 08/27/2024 1 [employer]IG[employer] [id number] Lilli Miller Kelvin Moskal [id number] Lilli Moskal 02/28/2025 2 [place] [id number] Lillicrow Brownkal [id number] Lilli Brownkal 08/27/2024 2 [place] [facility] [id number] Lilli Brownkal [id number] Lilli Stephaniekal 03/02/2025 1 [place] [facility] Lillicrow Koehlerl [id number] Lilli Brownkal 08/27/2024 2 [facility] [id number] Lilli Brownkal [id number] Lilli Moskal 08/27/2024 2 [facility] Lilli Warren Moskal [id number] Lilli Moskal 08/27/2024 2 [place] [id number] Lilli Brownkal [id number] Lilli Moskal 08/27/2024 1 [place] [id number] Lillicrow Brownkal [id number] Lilli Moskal 08/27/2024 2 [place] PREFERRED [id number] Lilli Brownkal [id number] Lilli Moskal 08/27/2024 1 [employer] ([facility]) [id number] Lilli Miller Kelvin Koehlerl [id number] Lilli Koehlerl 02/01/2004 1 [place] [facility] BLUE [id number] Sanjiv Isaacs [id number] 1 Lilli Isaacs 08/27/2024 1 [facility] [id number] Lilli Isaacs [id number] Lilli Isaacs 08/27/2024 1 [facility] [id number] Lilli Koehlerl [id number] Lilli Isaacs 08/27/2024 1 [facility] (O) [id number] Lilli Koehlerl [id number] Lilli Isaacs 08/27/2024 1 [facility] ([facility]) Lilli Isaacs [id number] Lilli Isaacs Notes Date Note Type Note Provider Name and Address Organization Details Recorded Time 10/05/2024 text/html Patient Specific Functional Score:40 Percent limitation in kbvoavm24 Percent limitation in getting up and down from the agpfsr93 Percent limitation in getting in and out of carSubjective: Pt presents to follow-up physical therapy session reporting compliance with HEP. NIC LOVE DPT [address] [place], [address], [facility] 10/05/2024 12:10:04 10/25/2024 text/html Patient Specific Functional Score:40 Percent limitation in rcavxce69 Percent limitation in getting up and down from the urijzv45 Percent limitation in getting in and out of carSubjective: Pt presents to follow-up physical therapy session reporting I think things are improving slowly . NIC LOVE DPT [address] [place], [address], [facility] 10/25/2024 12:22:43 11/22/2024 text/html Patient Specific Functional Score:40 Percent limitation in jtbuxlz92 Percent limitation in getting up and down from the lemqks33 Percent limitation in getting in and out of carSubjective: Pt presents to follow-up physical therapy session reporting I think things are improving slowly . NIC LOVE DPT [address] [place], [address], [facility] 11/22/2024 13:05:35 12/02/2024 text/html Patient Specific Functional Score:40 Percent limitation in kxiptuk09 Percent limitation in getting up and down from the hylsme31 Percent limitation in getting in and out of carSubjective: Pt presents to follow-up physical therapy session reporting I think there is a problem with the knee, it feels so swollen but when I do my exercises it is more flexible . NIC LOVE DPT [address] [place], [address], [facility] 12/02/2024 09:34:25 12/28/2024 text/html Lilli is a [...] helped reduce her symptoms. Benjie Evans MD [address] [place], [address], [facility] 12/28/2024 14:49:40 OBGyn Episode No OBEpisode recorded.
--- NOTE | 2025-03-31 08:10 | A.OFFVIS_ITS ---
Intake Visit Reasons: urinary incontinence Intake Note: New Patient presents for initial visit for kidney stones Urology Medications: none Blood Thinner: none Artificial Inseminator Required: No Accompanied by: Self / Same As Patient Allergies Iodinated Contrast Media [IV Dye, Iodine Containing] Allergy (Unknown, Verified 03/31/25 10:43) RASH Medication List - Last Reconciled 03/31/25 by ENEDELIA Smith-SUMI hydrochlorothiazide 25 mg PO DAILY PRN metoprolol tartrate 12.5 mg (1/2 x 25 mg) PO BID HPI Comments Details: Lilli is a pleasant 69-year-old female patient. She has a past medical history of hyperthyroidism, atrial arrhythmia, hypertension, SVT, and palpitations. She presents to the office today as a new patient for nephrolithiasis. In discussion with the patient today she reports having seeked emergency room care approximately 2 months ago for right-sided flank pain she had been experiencing at which time a CT of the abdomen was ordered and performed. These results were reviewed and communicated with the patient today. 02/11 there are 2 nonobstructing calculi in the left kidney a 2 mm and 5 mm nonobstructing calyceal calculi otherwise no hydronephrosis noted. The uterus has a globular configuration suspicious for fibroid involving the uterine fundus. She does discuss a longstanding history of nephrolithiasis. She reports previously following up with Dr. Correia 7 years ago and underwent surgical intervention to include ureteroscopy as well as ESWL in the past. She also reports to be following up with office worker in [place] in his aware of uterine fibroid. She reports pain she had been experiencing has since subsided. We did discussed at length potential causes of nephrolithiasis as well as further workup to include 24 hour urine collection and imaging. In office urinalysis results reviewed with the patient today. She does report noting a fishy odor to her area we did discuss potential causes of this. She otherwise denies urinary urgency, urinary frequency, incontinence, nocturia, hematuria, dysuria, foul smelling urine, changes to urinary stream, flank pain, fever, and or chills. She is happy with her current voiding parameters. Plan For the management of nephrolithiasis, the patient will undergo a 24-hour urine collection to assess stone formation factors and guide treatment. She is advised to increase her water intake to ensure a daily urine output of at least two liters, which is crucial for preventing stone formation. The patient will be monitored for any symptoms, and further interventions will be considered based on the urine collection results. Regarding the uterine fibroid, the patient is advised to continue her annual vaginal ultrasounds with her current provider. Patient was informed and verbally consented to the use of an ambient scribe for clinic note documentation during this visit. Discussion Notes I discussed with the patient the presence of kidney stones in the left kidney and the importance of a 24-hour urine collection to better understand her stone formation. We talked about increasing water intake to prevent further stone formation and the potential need for medication based on urine collection results. The patient was informed about the ongoing monitoring of her uterine fibroid with annual ultrasounds. We also discussed the possible cause of the fishy odor the importance of hydration and dietary considerations. [facility] Medical History Hyperthyroidism Atrial arrhythmia Essential hypertension SVT (supraventricular tachycardia) Palpitation Surgical History History of lithotripsy Family History Father Cardiovascular disease Mother Cardiovascular disease Diabetes Thyroid disease Social History Alcohol intake: current Alcohol intake frequency: a few times a month Alcohol type: wine Patient Tobacco Use Status: Never used Tobacco Current occupational status: retired Current occupation: Right Handed Review of Systems Const All systems reviewed & are unremarkable except as noted in HPI and below Physical Exam Const General: cooperative, healthy appearing, comfortable, no acute distress, well developed, alert and awake Orientation/consciousness: patient oriented x3 Limitations: no limitations HEENT Head: Yes normal to inspection, Yes normocephalic and Yes atraumatic Ears: hearing grossly normal bilaterally Eyes General: appearance normal, both eyes and all related structures Neck Neck: Yes normal visual inspection and Yes trachea midline Chest Chest palpation & inspection: normal inspection of the chest Resp Effort & Inspection: normal respiratory effort and able to speak in complete sentences Cardio Rate: regular rate GI Inspection: Yes normal to inspection General: Yes no CVA tenderness Back/Spine/Pelvis Back: no CVA tenderness Skin General skin exam: no rashes or lesions noted Neuro General: patient oriented x3 Extrem General: Yes normal to inspection Psych Appearance: grossly normal and well kempt Mental Status: mental status grossly normal Speech and movement: Normal speech and movement present and Clear speech present Affect: normal affect Attitude: cooperative Thought process: Normal thought process present Thought content: Normal thought content present Insight: Fair insight present (Psych) Judgement: Fair judgement present (Psych) Results AMB Urinalysis, Automated UA Leukoctes 70 Rick/uL Last Edit by Whitney Galvez [facility] on 03/31/25 08:21 UA Nitrite Last Edit by Whitney Galvez [facility] on 03/31/25 08:21 UA Urobilinogen 0.2 mg/dL Last Edit by Whitney Galvez [facility] on 03/31/25 08:2 1 UA Protein 15 mg/dL Last Edit by Whitney Galvez [facility] on 03/31/25 08:21 UA pH 6.0 Last Edit by Whitney Galvez [facility] on 03/31/25 08:21 UA Blood 0 Jeffery/uL Last Edit by Whitney Galvez [facility] on 03/31/25 08:21 UA Specific [place] 1.015 Last Edit by Whitney Galvez [facility] on 03/31/25 08: 21 UA Ketone Last Edit by Whitney Galvez [facility] on 03/31/25 08:21 UA Bilirubin 0 mg/dL Last Edit by Whitney Galvez [facility] on 03/31/25 08:21 UA Glucose 0 mg/dL Last Edit by Whitney Galvez [facility] on 03/31/25 08:21 Results Reviewed Results Reviewed: Laboratory Last Values Urine pH (Auto) 6.0 03/31/25 08:20 Specific [place] (Auto) 1.015 03/31/25 08:20 Urine Protein (Auto) 15 mg/dL 03/31/25 08:20 Glucose (UA)(Auto) 0 mg/dL 03/31/25 08:20 Urine Blood (Auto) 0 Jeffery/uL 03/31/25 08:20 Urine Bilirubin (Auto) 0 mg/dL 03/31/25 08:20 Urine Urobilinogen (Auto) 0.2 mg/dL 03/31/25 08:20 Leukocyte Esterase (Auto) 70 Rick/uL 03/31/25 08:20 Date of Service: 02/01/25 Procedure(s): CT abdomen pelvis wo IV con Findings: The liver density is homogeneous No biliary abnormalities The spleen is normal in size No pancreatic ductal dilatation No hydronephrosis. A 2 mm and a 5 mm nonobstructing caliceal calculi are located in the upper and lower pole of the left kidney. Two left renal cortical simple cysts are present in the upper pole cortex. Normal bowel caliber The appendix is normal. No free fluid/free air The abdominal aorta caliber is normal Bladder outline is smooth. The uterus has a globular configuration suspicious for fibroid involving the uterine fundus. No adnexal masses No suspicious skeletal lesions Impression: There are 2 nonobstructing calculi in the left kidney collecting system. No hydronephrosis. No bladder calculus. Lobular contour of uterine fundus may represent a 3 cm fibroid. Consider nonurgent ultrasound. Assessment & Plan Assessment & Plan (1) Nephrolithiasis: Code(s): N20.0 - Calculus of kidney Category: Medical Plan In office urinalysis results with the patient today; as noted above. Recent CT results reviewed with the patient today; as noted above. She currently denies any bothersome urinary issues. Will obtain Litholink for further assessment evaluation. Will obtain renal ultrasound for further assessment evaluation. We discussed at length the importance of adequate hydration relation to nephrolithiasis as well as overall health and well-being. We discussed adding 1 oz of lemon juice to water daily. We also discussed vitamin B6. All questions were answered. Follow-up in 3 months with imaging and Litholink to be completed prior; or sooner with any issues, concerns, and or questions. Orders: Orders AMB Urinalysis Automated Today Z13.9 - Encounter for screening, unspecified URORISK Today N20.0 - Calculus of kidney US renal BI 3 Months N20.0 - Calculus of kidney Patient Instructions: The patient had an opportunity to ask questions regarding the treatment plan. All questions were answered. Physical exam, labs, and imaging were discussed and reviewed in detail. As well as risks, benefits, and discussion of treatment choices. No major barriers to understanding were identified. The patient expr essed understanding and agreement with the above treatment plan. The patient was made aware they should contact our office by phone for worsening of their current condition, the appearance of new symptoms, or with any questions or concerns. Compliance is encouraged with any medications and follow up testing that is ordered. It is a privilege to be allowed the opportunity to participate in? your urological care.? Again, if you have any questions or concerns If you have any questions or concerns please do not hesitate to contact me. The office is [phone]. This note is constructed using voice recognition software. While every effort has been made to ensure accuracy specialist icu errors may have been included. Yours sincerely, TIFFANY Smith Coding Level of Care Code New Pt Level 4 (27152) Diagnoses Nephrolithiasis N20.0 Time Spent (min) 30
== END 2025-03-31 08:51 | disposition home or self-care (01) ==
LOC: HO.HUSH 08:05
PROVIDERS: Visit Provider Nurse Practitioner Family
DX: N20.0 Calculus of kidney (principal); Z13.9 Encounter for screening, unspecified
CPT/HCPCS: 99204

== ENCOUNTER → 2025-03-31 08:04 | Outpatient (BNVA) | payer MEDICARE, SELFPAY | PROVIDERS: Visit Provider Nurse Practitioner Family | DX: N20.0 Calculus of kidney (principal) | CPT/HCPCS: 81003; 99202 ==

== ENCOUNTER 2025-06-14 09:31 | Outpatient (REF) | payer MEDICARE, SELFPAY ==
--- NOTE | ~2025-06-14 | US_ITS ---
CLINICAL HISTORY: N20.0 - Calculus of kidney US renal Comparison: None Provided Findings: Right kidney 10.1 cm length. No significant focal abnormality. Left kidney 9.9 cm length. 3 mm nonobstructing lower pole stone. 2.4 and 1.8 cm upper pole cysts. No bilateral hydronephrosis. Normal bilateral renal echogenicity. Impression: Nonobstructing left renal stone, otherwise unremarkable This document has been electronically signed by: Heraclio Hooker MD on 06/14/2025 20:54:15
--- OUTSIDE RECORDS SUMMARY | 2025-06-14 10:08 | XMS_ITS | Patient Health Record ---
Author Organization [facility] Address [address] [place] [address] Care Team Providers Care Vigoureux Printer Name Role Phone Lynne Thomas Primary Care Provider Umair Sierra Jr Unavailable Allergies Allergen (clinical drug ingredient) Drug/Non Drug Allergy documented on EMR Reaction Allergy Type Onset Date Status IVP dye (uncoded) Unknown Allergy Ac tive Reason For Referral No Information Medications Medication SIG (Take, Route, Frequency, Duration) Notes Start Date End Date Status Multivitamin Adult - as directed Orally Active hydroCHLOROthiazide 12.5 MG Orally Once a day Active Omeprazole 20 MG 1 tablet Orally Twic e a day for 30 day(s) 04/07/2020 Active Immunizations Vaccine Route Administration Date Status Comme nts Influenza Unknown 07/20/2019 Administered Social History Tobacco Use: Social History Observation Description Date Details (start date - stop date) Never Smoker NA - NA Tobacco Use/Smoking Question Answer Notes Patient is a nonsmoker Alcohol Screen Question Answer Notes Did you have a drink contain ing alcohol in the past year? Yes How often did you have a dri nk containing alcohol in the past year? Monthly or less (1 point) How many drinks did you have on a typical day when you were drinking in the past year? 1 or 2 drinks (0 point) How often did you have 6 or more drinks on one occasion in the past year? 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
== END 2025-06-14 09:32 | disposition home or self-care (01) ==
LOC: HO.US 09:31
PROVIDERS: PCP Registered Nurse; Visit Provider Nurse Practitioner Family
DX: N20.0 Calculus of kidney (principal)
CPT/HCPCS: 76775

== ENCOUNTER → 2025-06-14 09:33 | Outpatient (BNV) | payer MEDICARE, SELFPAY | PROVIDERS: PCP Registered Nurse; Visit Provider Radiology Diagnostic Radiology | DX: N20.0 Calculus of kidney (principal) | CPT/HCPCS: 76775 ==

== ENCOUNTER → 2025-07-14 11:25 | Outpatient (REF) | payer MEDICARE, SELFPAY ==
--- NOTE | 2025-07-14 11:25 | HM_ITS ---
Conclusion: 1. Patient was monitored for total period of 3 days 2. Baseline was normal sinus rhythm with average heart of 78 beats per minute 3. Intermittent episodes of paroxysmal atrial fibrillation noted with total burden of 1.6% with longest episode lasting 17 minutes with a max heart rate of 122 beats per minute 4. Frequent PACs noted with total burden of 8.5% 5. No significant pauses noted 6. To short runs of wide complex rhythm consistent with nonsustained VT, longest 4 beats at 137 beats per minute 7. No patient reported events MTDD
== END ==
LOC: HO.CARD 11:25
PROVIDERS: PCP Registered Nurse; Visit Provider Internal Medicine
DX: I49.8 Other specified cardiac arrhythmias (principal)
CPT/HCPCS: 93242

== ENCOUNTER → 2025-07-14 11:25 | Outpatient (BNV) | payer MEDICARE, SELFPAY | PROVIDERS: PCP Registered Nurse; Visit Provider Internal Medicine Cardiovascular Disease | DX: I48.0 Paroxysmal atrial fibrillation (principal); I49.1 Atrial premature depolarization | CPT/HCPCS: 93244 ==

== ENCOUNTER → 2025-07-28 10:08 | Outpatient (REF) | payer MEDICARE, SELFPAY ==
--- NOTE | 2025-07-28 10:10 | CA_ITS ---
Transthoracic Echocardiogram Patient (Last, First, Middle): Lilli Isaacs Z Gender: Female Date of : 1955 Age: 69 Procedure Date: 07/28/2025 Procedure Type: Transthoracic Echocardiogram Location: OP Height: 152.4 cm Weight: 84.37 kg BSA: 1.81 m2 Heart Rate: 65 bpm BP: 124 / 70 mmHg Polymerization Kettle Operator: EDITA Referring MD: Calvin Cason MD Armature Coil Winder: Maxi Lee MD Symptoms: I48.0 - Paroxysmal atrial fibrillation Study Quality: Adequate ECG Rhythm: Sinus Conclusions: - 1. Normal LV ejection fraction 55-60% with impaired relaxation filling pattern 2. Mildly dilated left atrium 3. Trivial aortic regurgitation 4. Mildly dilated ascending aorta at 3.9 cm 5. Normal RV systolic pressure 6. No gross pericardial effusion Findings Left Ventricle Normal left ventricular size, thickness, and systolic function. The visually estimated ejection fraction is between 55-60%. Spectral Doppler is indicative of an impaired relaxation filling pattern. E/E prime ratio is between 8 and 15 consistent with indeterminate filling pressures. Right Ventricle Normal right ventricular cavity size and systolic function. Atria The left atrium is mildly dilated. Interatrial shunt cannot be excluded. The right atrium is normal in size. Aortic Valve There is mild calcification of the aortic valve. There is no aortic valve stenosis. There is trace (trivial) aortic valve regurgitation. Mitral Valve Normal mitral valve structure and function. There is trace mitral valve regurgitation. There is no mitral valve stenosis. Pulmonic Valve The pulmonic valve was not well visualized. Tricuspid Valve Likely normal tricuspid valve structure and function. There is trace tricuspid valve regurgitation. The right ventricular systolic pressure is normal. The right ventricular systolic pressure is 22 mmHg. Normal right atrial pressure. There is no evidence of pulmonary hypertension. Great Vessels The pulmonary artery was not well visualized. There is mild dilatation of the ascending aorta measuring 3.90 cm. Venous The inferior vena cava is normal in size and collapses greater than 50% with inspiration. Pericardium/Pleural There is no evidence of pericardial effusion. Prior Study Comparison No prior study available for comparison. ascending aorta is mildly dilated with trivial aortic regurgitation noted Measurements 2D Linear Measurements IVSd: 1.03 0.6-0.9/0.6-1.0 cm LVIDd: 4.67 3.9-5.3/4.2-5.9 cm LVIDd Index: 2.58 2.4-3.2/2.2-3.1 cm/m2 LVIDs: 3.40 2.0-3.6 cm LVPWd: 0.99 0.7-1.1 cm LA Diam: 4.20 2.7-3.8/3.0-4.0 cm LAIDs Index: 2.32 1.5-2.3 cm/m2 LV Mass: 204.78 67-162/88-224 g LV Mass Index: 113.14 43-95/49-115 g/m2 LVOT Diam: 2.30 3.0+(-)1.3 cm Mitral Valve MV Pk E: 0.63 MV PK A: 0.73 MV Decel Time: 193.00 E/A: 0.90 E'Lateral: 6.85 E'Medial: 4.03 E/E' Med: 15.70 E/E' Lat: 9.30 PHT: 56.00 MVA PHT: 3.93 Decel Rhea: 3.29 Aortic Valve AoV Pk Israel: 1.33 AoV Pk Grad: 7.00 JAYNE: 2.04 LVOT LVOT Pk Israel: 0.71 LVOT Mn Israel: 0.49 LVOT VTI: 0.15 LVOT Pk Grad: 2.00 LVOT Mn Grad: 1.00 LVOT Diam: 2.30 LVOT Area: 4.15 Diastolic Function MV Pk E: 0.63 MV Pk A: 0.73 E/A: 0.90 E'Medial: 4.03 E/E' Med: 15.70 E' Laterial: 6.85 E/E' Lat: 9.30 Right Ventricle TAPSE (mm): 22.20 TVS' Israel: 12.10 Tricuspid Valve TR Pk Israel: 2.16 TR Pk Grad: 19.00 RA Press: 3.00 RVSP: 22.00 Great Vessels Aorta Sinus of Valsalva: 3.30 2.0-3.5 cm Ao Asc: 3.90 2.1-3.4 cm Ao Arch: 3.20 Pulmonary Veins Pulm Vein S/D 1.70 Pulmonary Valve PV Pk Israel: 0.77 Peak PV Grad: 2.00 AK Pk Israel: 1.57 Updated in Other Vendor System with Status of Final Maxi Lee MD electronically signed on 07/28/2025 5:25:58 PM with status of Final
== END ==
LOC: HO.CARD 10:08
PROVIDERS: PCP Registered Nurse; Visit Provider Internal Medicine
DX: I48.0 Paroxysmal atrial fibrillation (principal)
CPT/HCPCS: 93306

== ENCOUNTER → 2025-07-28 10:10 | Outpatient (BNV) | payer MEDICARE, SELFPAY | PROVIDERS: PCP Registered Nurse; Visit Provider Internal Medicine Cardiovascular Disease | DX: I51.7 Cardiomegaly (principal); I35.1 Nonrheumatic aortic (valve) insufficiency | CPT/HCPCS: 93306 ==

== ENCOUNTER 2025-08-16 10:01 | Outpatient (AMB) | payer MEDICARE, SELFPAY ==
--- NOTE | 2025-08-16 10:02 | MHC.OFFVIS ---
Intake Visit Reasons: 3m follow up/ litho Intake Note: Patient presents for: 3m f/u/ litho Urology Medications: none Blood Thinner: none US done: 06/14/25 Pasteurizing Supervisor Required: No Accompanied by: Self / Same As Patient Allergies Iodinated Contrast Media (IV Dye, Iodine Containing) Allergy (Unknown, Verified 08/16/25 10:39) RASH Medication List - Last Reconciled 08/16/25 by TIFFANY Smith hydrochlorothiazide 25 mg PO DAILY PRN metoprolol tartrate 12.5 mg (1/2 x 25 mg) PO BID HPI Comments Details: Lilli is a pleasant 69-year-old female patient. She has a past medical history of hyperthyroidism, atrial arrhythmia, hypertension, SVT, and palpitations. She presents to the office today for follow-up of her nephrolithiasis. Of note, patient was seen approximately 4 months ago as a new patient for nephrolithiasis at which time a 24 hour Litholink and renal ultrasound were ordered and obtained. These results were reviewed and communicated with the patient today. Litholink 08/13 borderline low urine pH otherwise essentially within normal limits. We did discuss initiation of potassium citrate however patient would like to continue with lifestyle modifications at this time. We also discussed most recent renal ultrasound 06/13 noting 3 mm nonobstructing left lower pole calculi otherwise unremarkable renal ultrasound per radiology report. We did discuss variability and imaging as previous CT 02/11 noted 2 mm and 5 mm calyceal left stones. She discusses her longstanding history of nephrolithiasis. She reports previously following up with Dr. Correia 7-8 years ago and underwent surgical intervention to include ureteroscopy as well as ESWL in the past. We did discussed at length potential causes of nephrolithiasis. She otherwise denies incontinence, nocturia, hematuria, dysuria, foul smelling urine, changes to urinary stream, flank pain, fever, and or chills. She is happy with her current voiding parameters. All questions were answered. She otherwise offers no other issues or concerns at this time. [facility] Medical History Hyperthyroidism Atrial arrhythmia Essential hypertension SVT (supraventricular tachycardia) Palpitation Surgical History History of lithotripsy Family History Father Cardiovascular disease Mother Cardiovascular disease Diabetes Thyroid disease Social History Alcohol intake: current Alcohol intake frequency: a few times a month Alcohol type: wine Patient Tobacco Use Status: Never used Tobacco Current occupational status: retired Current occupation: Right Handed Review of Systems Const All systems reviewed & are unremarkable except as noted in HPI and below Physical Exam Const General: cooperative, healthy appearing, comfortable, no acute distress, well developed, alert and awake Orientation/consciousness: patient oriented x3 Limitations: no limitations HEENT Head: Yes normal to inspection, Yes normocephalic and Yes atraumatic Ears: hearing grossly normal bilaterally Eyes General: appearance normal, both eyes and all related structures Neck Neck: Yes normal visual inspection and Yes trachea midline Chest Chest palpation & inspection: normal inspection of the chest Resp Effort & Inspection: normal respiratory effort and able to speak in complete sentences Cardio Rate: regular rate GI Inspection: Yes normal to inspection General: Yes no CVA tenderness Back/Spine/Pelvis Back: no CVA tenderness Skin General skin exam: no rashes or lesions noted Neuro General: patient oriented x3 Extrem General: Yes normal to inspection Psych Appearance: grossly normal and well kempt Mental Status: mental status grossly normal Speech and movement: Normal speech and movement present and Clear speech present Affect: normal affect Attitude: cooperative Thought process: Normal thought process present Thought content: Normal thought content present Insight: Fair insight present (Psych) Judgement: Fair judgement present (Psych) Results Reviewed Results Reviewed: Date of Service: 06/14/25 Procedure(s): US renal BI Findings: Right kidney 10.1 cm length. No significant focal abnormality. Left kidney 9.9 cm length. 3 mm nonobstructing lower pole stone. 2.4 and 1.8 cm upper pole cysts. No bilateral hydronephrosis. Normal bilateral renal echogenicity. Impression: Nonobstructing left renal stone, otherwise unremarkable Assessment & Plan Assessment & Plan (1) Nephrolithiasis: Code(s): N20.0 - Calculus of kidney Category: Medical Plan Recent renal imaging results reviewed with the patient today; as noted above. Recent Litholink results reviewed with the patient today; as noted above. She currently denies any bothersome urinary issues. We discussed at length the importance of adequate hydration relation to nephrolithiasis as well as overall health and well-being. We discussed adding 1 oz of lemon juice to water daily. We also discussed vitamin B6. All questions were answered. Will obtain renal ultrasound for surveillance monitoring in 6 months Follow-up in 6 months with imaging to be completed prior; or sooner with any issues, concerns, and or questions. Orders: Orders US renal BI 6 Months N20.0 - Calculus of kidney Patient Instructions: The patient had an opportunity to ask questions regarding the treatment plan. All questions were answered. Physical exam, labs, and imaging were discussed and reviewed in detail. As well as risks, benefits, and discussion of treatment choices. No major barriers to understanding were identified. The patient expressed understanding and agreement with the above treatment plan. The patient was made aware they should contact our office by phone for worsening of their current condition, the appearance of new symptoms, or with any questions or concerns. Compliance is encouraged with any medications and follow up testing that is ordered. It is a privilege to be allowed the opportunity to participate in? your urological care.? Again, if you have any questions or concerns If you have any questions or concerns please do not hesitate to contact me. The office is [phone]. This note is constructed using voice recognition software. While every effort has been made to ensure accuracy washtub worker helper errors may have been included. Yours sincerely, TIFFANY Smith Coding Level of Care Code Est Pt Level 3 (86889) Complex EM visit Add On G2211 Diagnoses Nephrolithiasis N20.0
--- OUTSIDE RECORDS SUMMARY | 2025-08-16 11:59 | XMS_ITS | Encounter Summary ---
Author Organization [facility] Address [address] [place] [address] Phone Care Team Providers Care Deoiling Machine Operator Name Role Phone Benedict Estrada MD Unavailable [phone] Charu Mendoza NP Unavailable [phone] Omer Arguello MD Unavailable [phone] Lynne Thomas NP Primary Care Provider Encounter Details Date Type Department Care Team (Latest Contact Info) Description 01/25/2021 Transcribe Orders Virtual Department [address] [place] [address] Eriberto Velazquez MD [address] [place] [id number] [email or web address] Thyrotoxicosis without thyroid storm, unspecified thyrotoxicosis type (Primary Dx); Subclinical hyperthyroidism Social History Tobacco Use Types Packs/Day Years Used Date Smoking Tobacco: Never Smokeless Tobacco: Never Alcohol Use Standard Drinks/Week Comments Yes 0 (1 standard drink = 0.6 oz pur e alcohol) wine- socially Comments No Sex and Gender Information Value Date Recorded Sex Assigned at Not on file Legal Sex Female 9:52 PM EDT Gender Identity Not on file Sexual Orientation Not on file documented as of this encounter Plan of Treatment Not on file documented as of this encounter Results * US Thyroid Gland (02/07/2021 1:36 PM EDT) Anatomical Region Laterality Modality Neck, Head, Chest Ultrasound 02/07/2021 1:44 PM EDT Impressions 02/07/2021 1:47 PM EDT Dominant lower pole left thyroid nodule with TR 3 characteristics, measuring over 2.5 cm. Based on the appearance on scintigraphy, this is likely incidental hyperfunctioning autonomous nodule. Based on size criteria, biopsy would be warranted. Narrative 02/07/2021 1:47 PM EDT US THYROID GLAND TECHNIQUE: Ultrasound of the thyroid. COMPARISON: Scintigraphy January 22 FINDINGS: Thyroid: The right lobe measures right thyroid lobe is measured 5.1 x 2.4 x 2.7 cm and left 5.6 x 2.5 x 2.3 cm. Corresponding to the area of increased uptake in the lower left thyroid lobe is a dominant wider than tall, well-circumscribed isoechoic nodule with some internal cystic change, measured at 4.0 x 2.3 x 3.4 cm. No calcification seen within. In the mid thyroid lobe is a rim calcification measuring 7 mm.. No right-sided masses are seen. No adenopathy is detected. Parathyroid: A parathyroid adenoma is not identified. Procedure Note Osvaldo Rosas MD - 02/07/2021 US THYROID GLAND TECHNIQUE: Ultrasound of the thyroid. COMPARISON: Scintigraphy January 22 FINDINGS: Thyroid: The right lobe measures right thyroid lobe is measured 5.1 x 2.4 x 2.7 cmand left 5.6 x 2.5 x 2.3 cm. Corresponding to the area of increased uptakein the lower left thyroid lobe is a dominant wider than tall,well-circumscribed isoechoic nodule with some internal cystic change,measured at 4.0 x 2.3 x 3.4 cm. No calcification seen within. In the midthyroid lobe is a rim calcification measuring 7 mm.. No right- sided massesare seen. No adenopathy is detected. Parathyroid: A parathyroid adenoma is not identified. IMPRESSION: Dominant lower pole left thyroid nodule with TR 3 characteristics,measuring over 2.5 cm. Based on the appearance on scintigraphy, this islikely incidental hyperfunctioning autonomous nodule. Based on sizecriteria, biopsy would be warranted. us Eriberto Velazquez MD IMG US THYROID Final Resul t documented in this encounter Visit Diagnoses Diagnosis Thyrotoxicosis without thyroid storm, unspecified thyrotoxicosis type- Primary Subclinical hyperthyroidism Thyrotoxicosis without mention of goiter or other cause, without mention of thyrotoxic crisis or storm Thyrotoxicosis without thyroid storm, unspecified thyrotoxicosis type Subclinical hyperthyroidism Thyrotoxicosis without mention of goiter or other cause, without mention of thyrotoxic crisis or storm documented in this encounter Care Teams Deoiling Machine Operator Relationship Specialty Start Date End Date Lynne Thomas NP [address] [place] [address] [email or web address] PCP - General Family Medicine 11/12/19 Benedict Estrada MD [address] [place] [id number] [email or web address] Historical LMR Provider 08/10/17 2 Charu Mendoza NP [address] [place] [address] [address] [place] [address] Historical LMR Provider 08/10/17 2 Omer Arguello MD [address] [place] [address] [address] [place] [address] [email or web address] Historical LMR Provider 08/10/17 documented as of this encounter Additional Source Comments The information contained in this document represents components of the legal health record. It is not the complete legal health record.[facility]
--- OUTSIDE RECORDS SUMMARY | 2025-08-16 11:59 | XMS_ITS | Clinical Summary ---
Author Organization [facility] Address [address] [place] [phone] Phone Care Team Providers Care Food Counter Attendant Name Role Phone Omer Arguello MD Unavailable [phone] Lynne Thomas NP Primary Care Provider Allergies Active Allergy Reactions Criticality Noted Date Comments Iodinated Contrast Media Hives 08/12/2018 Medications MULTIVITAMIN WITH MINERALS ORAL Active metoprolol tartrate (LOPRESSOR) 25 MG tablet 12.5 mg. 05/22/2021 Active Active Problems Problem Noted Date Diagnosed Date Left ovarian cyst 08/14/2021 Assessment & Plan (02/13/2023 9:48 AM EDT): Overall, the left ovary appears stable in size and appearance compared to previous films. We will continue with yearly ultrasounds. Assessment & Plan (08/14/2021 2:25 PM EDT): Plan to continue with yearly ultrasounds Immunizations Immunization Administration Dates Next Due INFLUENZA, SPLIT VIRUS, TRIVALENT PF 08/06/2013 Influenza Quadrivalent MDCK Preservative Free IM 07/27/2018 Influenza Quadrivalent Preservative Free IM 07/21,08/23/2019,08/30/2017 Influenza Quadrivalent w/ Preservative IM 2015,08/02/2014 Td, unspecified formulation 01/07/2006 Tdap 07/26/2011 Zoster recombinant 02/22/2019 Family History Medical History Relation Comments CV disease Father Coronary artery disease Father Hypertension Father Diabetes mellitus Mother Hypertension Mother Hypothyroidism Mother Retinopathy of prematurity Mother Relation Status Comments Father Mother Alive Social History Tobacco Use Types Packs/Day Years Used Date Smoking Tobacco: Never Smokeless Tobacco: Never Alcohol Use Standard Drinks/Week Comments Yes 0 (1 standard drink = 0.6 oz pur e alcohol) wine- socially Education Answer Date Recorded Are you interested in more education? Not on krystal e 02/13/2023 Are you concerned about learning? Not on file 02/13/2023 No 02/13/2023 No 02/13/2023 Digital Access Answer Date Recorded No 03/15/2023 No 03/15/2023 Reliable internet access at home? Not on file 03/15/2023 Device with a working camera? Not on file Comments No Sex and Gender Information Value Date Recorded Sex Assigned at Not on file Legal Sex Female 9:52 PM EDT Gender Identity Not on file Sexual Orientation Not on file Last Filed Vital Signs Vital Sign Reading Time Taken Comments Blood Pressure 126/84 02/13/2023 9:02 AM EDT Pulse - - Temperature - - Respiratory Rate - - Oxygen Saturation - - Inhaled Oxygen Concentration - - Weight 85.7 kg (189 lb) 08/14/2021 2:11 PM EDT Height 152.4 cm (5') 08/14/2021 2:11 PM EDT Body Mass Index 36.91 08/14/2021 2:11 PM EDT Plan of Treatment Health Maintenance Due Date Last Done Comments LIPID PANEL 1957 DEPRESSION SCREENING 1969 HEPATITIS C SCREENING 1975 MAMMOGRAM 1997 COLOGUARD 2002 COLONOSCOPY 2002 COLORECTAL CANCER SCREENING 2002 FIT TEST 2002 FOBT 2002 SIGMOIDOSCOPY 2002 VIRTUAL COLONOSCOPY 2002 PNEUMOCOCCAL VACCINES (50+ years) (1 of 1 - PCV) 2007 ZOSTER VACCINES (2 of 2) 04/19/2019 02/22/2019 Adult Td,Tdap Booster 07/26/2021 07/26/2011, 006 OSTEOPOROSIS SCREENING INITIAL (ONE-TIME) 2022 INFLUENZA VACCINE (#1) 2025 0, 08/23/2019, 07/27/2018, Additional history exists COVID-19 VACCINE (3 - 2024- season) 2025 12/26/2020, 12/04/2020 RSV VACCINE (1 - 1-dose 75+ series) 2032 SMOKING STATUS SCREENING (Once After 26 Yrs) Completed 08/14/2021 HEPATITIS A VACCINES Aged Out No long er eligible based on patient's age to complete this topic HIB VACCINES Aged Out No longer eligi ble based on patient's age to complete this topic MENINGOCOCCAL VACCINES (ACWY) Aged Out No longer eligible based on patient's age to complete this topic MENINGOCOCCAL VACCINES (B) Aged Out N o longer eligible based on patient's age to complete this topic Medical Devices Not on file Insurance MEDICARE PART A & B Nex[employer] CROSS MEDEX SUPPLEMENT MEDICARE PART A & B Nexamp CROSS MEDEX SUPPLEMENT MEDICARE PART A & B Nexamp CROSS MEDEX SUPPLEMENT MEDICARE PART A & B Nexamp CROSS MEDEX SUPPLEMENT MEDICARE PART A & B [place]UE [place] MEDEX SUPPLEMENT MEDICARE PART A & B Care Teams Food Counter Attendant Relationship Specialty Start Date End Date Lynne Thomas NP [address] [place] [address] [email or web address] PCP - General Family Medicine 11/12/19 Omer Arguello MD [address] [place] [address], [address] [place] [address] [email or web address] Historical LMR Provider 08/10/17 Additional Source Comments The information contained in this document represents components of the legal health record. It is not the complete legal health record.[facility]
--- OUTSIDE RECORDS SUMMARY | 2025-08-16 11:59 | XMS_ITS | Encounter Summary ---
Author Organization [facility] Address [address] [facility] [address] [place] [address] Phone Care Team Providers Care Induction Heating Equipment Setter Name Role Phone Omer Arguello MD Unavailable [phone] Lynne Thomas NP Primary Care Provider Encounter Details Date Type Department Care Team (Latest Contact Info) Description 07/24/2022 Transcribe Orders Virtual Department [address] [place] [id number] Eriberto Velazquez MD [address] [place] [phone] [email or web address] Thyrotoxicosis with toxic multinodular goiter without thyrotoxic crisis or storm (Primary Dx) Social History Tobacco Use Types Packs/Day Years [...] this encounter Results * US Thyroid Gland (08/01/2022 11:35 AM EDT) Anatomical Region Laterality Modality Neck, Head, Chest Ultrasound 08/01/2022 5:00 PM EDT Impressions 08/01/2022 5:02 PM EDT Patient is status post left thyroidectomy. Mildly heterogeneous appearance of the right thyroid lobe without dominant nodule demonstrated. Narrative 08/01/2022 5:02 PM EDT US THYROID GLAND TECHNIQUE: Ultrasound of the thyroid. COMPARISON: Thyroid sonography 02/07/2021 FINDINGS: Gland size: Right lobe: 5.9 x 2.0 x 1.8 cm. The left thyroid lobe is surgically absent. Isthmus: 0.7 cm Nodules (greater than or equal to 0.5 cm): No dominant thyroid nodules demonstrated. Background echogenicity: Moderately heterogeneous. Vascularity: Normal. Cervical lymphadenopathy: None. Parathyroid adenoma: None. Procedure Note Vicky Rico MD - 08/01/2022 US THYROID GLAND TECHNIQUE: Ultrasound of the thyroid. COMPARISON: Thyroid sonography 02/07/2021 FINDINGS: Gland size: Right lobe: 5.9 x 2.0 x 1.8 cm. The left thyroid lobe is surgically absent. Isthmus: 0.7 cm Nodules (greater than or equal to 0.5 cm): No dominant thyroid nodules demonstrated. Background echogenicity: Moderately heterogeneous. Vascularity: Normal. Cervical lymphadenopathy: None. Parathyroid adenoma: None. IMPRESSION: Patient is status post left thyroidectomy. Mildly heterogeneous appearance of the right thyroid lobe without dominantnodule demonstrated. us Eriberto Velazquez MD IMG US THYROID Final Resul t documented in this encounter Visit Diagnoses Diagnosis Thyrotoxicosis with toxic multinodular goiter without thyrotoxic crisis or storm- Primary Thyrotoxicosis with toxic multinodular goiter without thyrotoxic crisis or storm documented in this encounter Care Teams Induction Heating Equipment Setter Relationship Specialty Start Date End Date Lynne Thomas NP [address] [place] [phone] [email or web address] PCP - General Family Medicine 11/12/19 Omer Arguello MD [address] [place] [address], [address] [place] [address] [phone] ([email or web address]) [email or web address] Historical LMR Provider 08/10/17 documented as of this encounter Additional Source Comments The information contained in this document represents components of the legal health record. It is not the complete legal health record.[facility]
--- OUTSIDE RECORDS SUMMARY | 2025-08-16 12:00 | XMS_ITS | Encounter Summary ---
Author Organization [facility] Address [address] [facility] [address] [place] [phone] Phone Care Team Providers Care Luster Applicator Name Role Phone Omer Arguello MD Unavailable [phone] Lynne Thomas NP Primary Care Provider Reason for Referral * MRI/CAT Scan - Closed Specialty Diagnoses / Procedures Referred By Valente dorsey Referred To Contact Radiology Diagnoses LLQ pain Procedures CT Abdomen/Pelvis Samantha Godoy NP [address] [place] [address] Phone: tel: fax: Referral ID Status Reason Start Date Expiration Date Visits Re quested Visits Authorized [id number] Closed 07/24/2023 1 1 Encounter Details Date Type Department Care Team (Latest Contact Info) Description 07/24/2023 Transcribe Orders Virtual Department [address] [place] [address] Samantha Godoy NP [address] [place] [address] LLQ pain (Primary Dx) Social History Tobacco Use Types [...] documented as of this encounter Results * CT ABDOMEN/PELVIS WITHOUT CONTRAST (07/24/2023 3:20 PM EDT) Anatomical Region Laterality Modality Abdomen, Pelvis Computed Tomogra phy 07/24/2023 5:11 PM EDT Impressions 07/25/2023 6:15 AM EDT No cause for the reported symptoms identified in the abdomen/pelvis.Colonic diverticulosis without diverticulitis. Narrative 07/25/2023 6:[address] ABDOMEN/PELVIS WITHOUT CONTRAST TECHNIQUE: Multidetector-row CT of the abdomen and pelvis was performed without intravenous contrast using tailored dose modulation techniques. Images were reconstructed in the axial, coronal, and sagittal planes. COMPARISON: None FINDINGS: Lower Chest: Normal. No consolidation or pleural effusions. Liver: No suspicious focal liver lesion. Biliary: No biliary ductal dilatation. Spleen: Normal. No splenomegaly or focal lesions. Pancreas: Normal. No masses or ductal dilatation. Adrenal Glands: Normal. No nodules. Kidneys/Ureters: No solid renal mass or hydronephrosis. 3 mm nonobstructing left lower pole renal stone. Benign-appearing left upper pole renal cyst. Bowel: No bowel obstruction or wall thickening. Colonic diverticulosis, without diverticulitis. Normal appendix. Peritoneum/Retroperitoneum: Normal. No masses, pneumoperitoneum, or fluid. Lymph Nodes: Normal. No lymphadenopathy. Pelvic Organs/Bladder: Normal. No mass. Vessels: No abdominal aortic aneurysm. Bones/Soft Tissues: No suspicious focal osseous lesion. Diffuse osteopenia. Procedure Note Evan Renee MD - 07/25/2023 CT ABDOMEN/PELVIS WITHOUT CONTRAST TECHNIQUE: Multidetector-row CT of the abdomen and pelvis was performedwithout intravenous contrast using tailored dose modulation techniques.Images were reconstructed in the axial, coronal, and sagittal planes. COMPARISON: None FINDINGS: Lower Chest: Normal. No consolidation or pleural effusions. Liver: No suspicious focal liver lesion. Biliary: No biliary ductal dilatation. Spleen: Normal. No splenomegaly or focal lesions. Pancreas: Normal. No masses or ductal dilatation. Adrenal Glands: Normal. No nodules. Kidneys/Ureters: No solid renal mass or hydronephrosis. 3 mmnonobstructing left lower pole renal stone. Benign-appearing left upperpole renal cyst. Bowel: No bowel obstruction or wall thickening. Colonic diverticulosis,without diverticulitis. Normal appendix. Peritoneum/Retroperitoneum: Normal. No masses, pneumoperitoneum, orfluid. Lymph Nodes: Normal. No lymphadenopathy. Pelvic Organs/Bladder: Normal. No mass. Vessels: No abdominal aortic aneurysm. Bones/Soft Tissues: No suspicious focal osseous lesion. Diffuseosteopenia. IMPRESSION: No cause for the reported symptoms identified in theabdomen/pelvis.Colonic diverticulosis without diverticulitis. Samantha Godoy NP IMG CT ABD/PELVIS Final Resu lt documented in this encounter Visit Diagnoses Diagnosis LLQ pain- Primary Abdominal pain, left lower quadrant LLQ pain Abdominal pain, left lower quadrant documented in this encounter Care Teams Luster Applicator Relationship Specialty Start Date End Date Lynne Thomas NP [address] [place] [phone] [email or web address] PCP - General Family Medicine 11/12/19 Omer Arguello MD [address] [place] [address], [address] [place] [address] Historical LMR Provider 08/10/17 documented as of this encounter Additional Source Comments The information contained in this document represents components of the legal health record. It is not the complete legal health record.[facility]
--- OUTSIDE RECORDS SUMMARY | 2025-08-16 12:00 | XMS_ITS | Encounter Summary ---
Author Organization [facility] Address [address] [facility] [address] [place] [address] Phone Care Team Providers Care Tray Line Worker Name Role Phone Omer Arguello MD Unavailable [phone] Lynne Thomas NP Primary Care Provider Encounter Details Date Type Department Care Team (Late st Contact Info) Description 07/24/2023 Procedure Pass [facility], Ct Scan - [address] [address] Social History Tobacco Use Types Packs/Day Years [...] on file documented as of this encounter Visit Diagnoses Not on filedocumented in this encounter Care Teams Tray Line Worker Relationship Specialty Start Date End Date Lynne Thomas, YAEL [address] [place] [phone] [email or web address] PCP - General Family Medicine 11/12/19 Omer Arguello MD [address] [place] [address] [email or web address] Historical LMR Provider 08/10/17 documented as of this encounter Additional Source Comments The information contained in this document represents components of the legal health record. It is not the complete legal health record.[facility]
--- OUTSIDE RECORDS SUMMARY | 2025-08-16 12:00 | XMS_ITS | Patient Health Record ---
Author Organization [facility] Address [address] [place] [address] Care Team Providers Care Director Of Litigation Name Role Phone Lynne Thomas Primary Care [...] MG 1 tablet Orally Twic e a day; Duration: 30 day(s) 04/07/2020 Active Immunizations Vaccine Route [...] Problem Status W/U Status Risk Notes Problem Colon cancer screening (830541815) Colon cancer screening (Z12.11) Active confirmed Problem Gastroesophageal reflux disease without esophagitis (299469309) Gastroesophageal reflux disease without esophagitis (K21.9) Active confirmed Problem Non-celiac gluten sensitivity (738834096) 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) Active confirmed Plan Of Treatment Future Test Test Name Order Date COLONOSCOPY 01/07/2020 UPPER GI ENDOSCOPY 04/07/2020 Insurance Providers Payer Name Payer Address Payer Phone Subscriber Number Group Number Insured Name Patient Relationship to Insured Coverage Start Date Coverage End Date [facility] [address] [place], [place] [address] [id number] ADAIR BRADFORD Self - patient is the insured Medical (General) History Medical History History ICD Code Denies UT,DM,CVA,Lung disease,renal dise ase 2018/ kidneystone Surgical History Surgery Date(Month/Year) laser legs
--- OUTSIDE RECORDS SUMMARY | 2025-08-16 12:00 | XMS_ITS | Encounter Summary ---
Author Organization [facility] Address [address] [facility] [address] [place] [address] Phone Care Team Providers Care Yarrow Gatherer Name Role Phone Benedict Estrada MD Unavailable [phone] Charu Mendoza NP Unavailable Omer Arguello MD Unavailable [phone] Lynne Thomas NP Primary Care Provider Reason for Referral * Outpatient Procedure - Closed Specialty Diagnoses / Procedures Referred By Valente t Referred To Contact Radiology Diagnoses Thyrotoxicosis without thyroid storm, unspecified thyrotoxicosis type Procedures NM Thyroid Uptake and Scan I123 Eriberto Velazquez MD Phone: tel: fax: [email or web address] Referral ID Status Reason Start Date Expiration Date Visits Re quested Visits Authorized [id number] Closed 01/15/2021 01/15/2022 1 1 Encounter Details Date Type Department Care Team (Latest Contact Info) Description 01/15/2021 Transcribe Orders Virtual Department [address] [place] [address] Eriberto Velazquez MD [address] [place] [phone] [email or web address] Thyrotoxicosis without thyroid storm, unspecified thyrotoxicosis type (Primary Dx) Social History Tobacco Use Types [...] documented as of this encounter Results * NM Thyroid Uptake and Scan I123 (01/23/2021 8:14 AM EDT) Anatomical Region Laterality Modality Neck Nuclear Medicine 01/23/2021 8:36 AM EDT Impressions 01/23/2021 8:44 AM EDT Findings consistent with a hyperactive nodule in the region of the isthmus, slightly to the left of midline, suppressing the majority of activity within the remainder of the gland. Differential diagnosis includes toxic adenoma and, less likely, thyroid carcinoma. Thyroid ultrasound recommended for further evaluation. Thyroid uptake at 24 hours is within normal limits. Narrative 01/23/2021 8:44 AM EDT HISTORY: Thyrotoxicosis. COMPARISON: None DOSE: 296 uCi I-123. EXAM: Nuclear medicine thyroid scan and uptake. FINDINGS: Round nodule in the region of the isthmus, slightly to the left of midline, demonstrating increased radiotracer activity. There is a paucity of activity within the remainder of the thyroid gland. Thyroid uptake at 24 hours is calculated to be 31.0%. Procedure Note Harry Castillo MD - 01/23/2021 HISTORY: Thyrotoxicosis. COMPARISON: None DOSE: 296 uCi I-123. EXAM: Nuclear medicine thyroid scan and uptake. FINDINGS: Round nodule in the region of the isthmus, slightly to the left ofmidline, demonstrating increased radiotracer activity. There is a paucityof activity within the remainder of the thyroid gland. Thyroid uptake at 24 hours is calculated to be 31.0%. IMPRESSION: Findings consistent with a hyperactive nodule in the region of theisthmus, slightly to the left of midline, suppressing the majority ofactivity within the remainder of the gland. Differential diagnosisincludes toxic adenoma and, less likely, thyroid carcinoma. Thyroidultrasound recommended for further evaluation. Thyroid uptake at 24 hoursis within normal limits. Eriberto Velazquez MD IM NM ENDOCRINE Final Resu lt documented in this encounter Visit Diagnoses Diagnosis Thyrotoxicosis without thyroid storm, unspecified thyrotoxicosis type- Primary Thyrotoxicosis without thyroid storm, unspecified thyrotoxicosis type documented in this encounter Care Teams Yarrow Gatherer Relationship Specialty Start Date End Date Lynne Thomas NP [address] [place] [address] [email or web address] PCP - General Family Medicine 11/12/19 Benedict Estrada MD [address] [place] [phone] [email or web address] LMR Provider 08/10/17 2 Charu Mendoza NP [address] [place] [address] [address] [place] [address] Historical LMR Provider 08/10/17 2 Omer Arguello MD [address] [place] [address] [address] [place] [address] [email or web address] Historical LMR Provider 08/10/17 documented as of this encounter Additional Source Comments The information contained in this document represents components of the legal health record. It is not the complete legal health record.[facility]
== END 2025-08-16 10:36 | disposition home or self-care (01) ==
LOC: HO.HUSH 10:02
PROVIDERS: Visit Provider Nurse Practitioner Family
DX: N20.0 Calculus of kidney (principal)
CPT/HCPCS: 99213; G2211

== ENCOUNTER → 2025-08-16 10:01 | Outpatient (BNVA) | payer MEDICARE, SELFPAY | PROVIDERS: Visit Provider Nurse Practitioner Family | DX: N20.0 Calculus of kidney (principal) | CPT/HCPCS: 99212 ==

== ENCOUNTER 2025-09-05 08:13 | Outpatient (AMB) | payer MEDICARE, SELFPAY ==
--- NOTE | 2025-09-05 08:17 | MHC.OFFVIS ---
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 She has a history of obesity, hypertension. Holter monitor on July 14, 2025, showed sinus rhythm, average heart rate 78 bpm, intermittent paroxysmal atrial fibrillation with 1.6% burden, longest episode 17 minutes, max heart rate 122 bpm. Frequent premature atrial contractions with 8.5% burden noted, brief SVT, longest 4 beats. The finding of atrial fibrillation is new for her. Echocardiogram on July 28, 2025, showed EF 55-60%, impaired relaxation, mild left atrial dilation, trivial aortic regurgitation, mildly dilated ascending aorta 3.9 cm. Patient reports occasional palpitations, unchanged in frequency or intensity. Weight gain due to stress of visiting mother in long term twice daily, caring for grandchildren. She believes alcohol consumption may contribute to symptoms. She admits to drinking 1-2 glasses of wine each night in recent months. 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 Review of Systems Const All systems reviewed & are unremarkable except as noted in HPI and below Denies daytime sleepiness, Denies difficulty sleeping, Reports fatigue, Denies snoring, Denies stops breathing during sleep and Denies weakness Card Denies chest pain, Reports rapid heart rate (brief palpitations), Denies irregular heart rhythm, Denies claudication, Denies leg edema, Denies lightheadedness, Denies palpitations, Denies dyspnea, Denies dyspnea on exertion, Denies orthopnea, Denies paroxysmal nocturnal dyspnea and Denies slow heart rate Resp Denies cough, Denies dyspnea, Denies dyspnea on exertion and Denies snoring GI Reports no additional complaints, Denies hematochezia, Denies change in stool character and Denies dyspepsia Musc Denies abnormal gait, Denies muscle weakness and Denies numbness Neuro Denies abnormal gait, Denies numbness and Denies weakness Endo Reports fatigue and Denies palpitations Physical Exam Vital Signs: Last Vital Signs Pulse 64 09/05/25 08:18 BP 120/70 09/05/25 08:18 BMI result Body Mass Index 36.9 Const General: cooperative, healthy appearing, comfortable and no acute distress Orientation/consciousness: patient oriented x3 Neck Neck: Yes normal visual inspection Resp Effort & Inspection: normal respiratory effort Auscultation: clear to auscultation bilaterally, no rales, no rhonchi and no wheezes Cardio Rate: regular rate Rhythm: regular rhythm Heart sounds: S1 normal heart sound present, S2 normal heart sound present, no gallops, no murmurs and no rubs Neuro General: patient oriented x3 Extrem General: Yes normal to inspection, No no pedal edema and No calf tenderness Psych Appearance: grossly normal Mental Status: mental status grossly normal Speech and movement: Normal speech and movement present Office Procedures EKG Details: Today, read by me, normal sinus rhythm, minimal volatage criteria for LVH, nonspecific ST/ T wave abn, no significant change from prior, rate 64, Qtc 416ms [id number], Complete Assessment & Plan Assessment & Plan (1) Paroxysmal atrial fibrillation: Code(s): I48.0 - Paroxysmal atrial fibrillation Category: Medical Plan: Recent holter monitor showing paroxysmal atrial fibrillation, burden 1.6%, PACs 8.5%. PAF is new finding for her. Chads Vasc score of 3. She does feel intermittent heart palpitations. Diagnosis of PAF and stroke risk with AFib reviewed with her. Will increase metoprolol tartrate to 25 mg b.i.d.. She is reluctant to start on anticoagulation at this time but will think about it. Will send Eliquis 5 mg b.i.d. to her pharmacy for when she is ready. Strongly encouraged she start now. Labs 02/01/2025 showed hemoglobin of 14.2, creatinine 0.8. Echocardiogram 07/28/2025 showed EF 55-60%, mildly dilated left atrium. - she plans on getting a smart watch for further evaluation of her rhythm. Cardiology follow-up 3-4 months, sooner if needed. (2) Atrial arrhythmia: Code(s): I49.8 - Other specified cardiac arrhythmias Category: Medical Plan: As above (3) Palpitation: Code(s): R00.2 - Palpitations Category: Medical Plan: As above (4) Essential hypertension: Code(s): I10 - Essential (primary) hypertension Category: Medical Plan: Blood pressure goal less than 130/80. Well controlled at this time. Metoprolol dose is being increased. Plan I discussed the findings of atrial fibrillation and the associated stroke risk with the patient. I recommended anticoagulation therapy with Eliquis, explaining the benefits and potential risks, including bleeding. The patient expressed concerns about starting a blood thinner and preferred to monitor the condition with a smartwatch and lifestyle modifications, such as reducing alcohol intake. I advised increasing the metoprolol dosage to manage palitations symptoms better. Medications: New apixaban (Eliquis) 5 mg PO BID 60 tabs 5RF Changed From metoprolol tartrate 12.5 mg (1/2 x 25 mg) PO BID 90 tabs 3RF To metoprolol tartrate 25 mg PO BID 60 tabs 5RF 30 days Patient Instructions: - Monitor heart rhythm with a smartwatch. - Reduce alcohol intake to help manage palpitations. - Increasing metoprolol dosage as discussed. - Start on Eliquis for anticoagulation and stroke risk reduction - Follow up in a few months to reassess heart condition and treatment plan. Patient was informed and verbally consented to the use of an ambient scribe for clinic note documentation during this visit. Visit time spent on chart review, interview, assessment, orders, documentation. Coding Level of Care Code Est Pt Level 4 (07521) Complex EM visit Add On G2211 Diagnoses Paroxysmal atrial fibrillation I48.0 Atrial arrhythmia I49.8 Palpitation R00.2 Essential hypertension I10 CPT Codes EKG - CPT: 16662-[id number], Complete ([id number]) Time Spent (min) 32
[2025-09-05 08:18] VITALS: BP 120/70; PULSE 64; BMI 36.9
== END 2025-09-05 08:49 | disposition home or self-care (01) ==
LOC: HO.HCS 08:13
PROVIDERS: PCP Registered Nurse; Visit Provider Nurse Practitioner Family
DX: I48.0 Paroxysmal atrial fibrillation (principal); I49.8 Other specified cardiac arrhythmias; R00.2 Palpitations; I10 Essential (primary) hypertension
CPT/HCPCS: 93010; 99214; G2211

== ENCOUNTER → 2025-09-05 08:13 | Outpatient (BNVA) | payer MEDICARE, SELFPAY | PROVIDERS: PCP Registered Nurse; Visit Provider Nurse Practitioner Family | DX: I48.0 Paroxysmal atrial fibrillation (principal); I49.8 Other specified cardiac arrhythmias; R00.2 Palpitations; I10 Essential (primary) hypertension; I49.1 Atrial premature depolarization; I47.10 Supraventricular tachycardia, unspecified | CPT/HCPCS: 93005; 99212 ==